=== PATIENT | male | born 1935 | race Caucasian/White ===

== ENCOUNTER 2017-10-11 16:27 | Emergency (ER) | payer MEDICARE, OTHER ==
[2017-10-11 16:56] VITALS: BP 140/76
== END 2017-10-11 16:50 | disposition left against medical advice (07) ==
LOC: ED 16:27
DX: R00.0 Tachycardia, unspecified (principal); Z53.21 Procedure and treatment not carried out due to patient leaving prior to being seen by health care provider
CPT/HCPCS: 99282

== ENCOUNTER 2017-10-16 15:13 | Emergency (ER) | payer MEDICARE ==
[2017-10-16] MEDS ORDERED: NS 0.9% 1000 ML* 1,000 ML IV ONE (15:23)
--- NOTE | 2017-10-16 15:42 | ED ---
Neurological HPI - HPI Summary HPI Summary: An 81 y/o M with dementia HONG presents to ED from [facility] because pt is not behaving at baseline. Per EMS: Cora called ambulance because pt was weak and unable to ambulate. When they arrived on scene, pt was ambulating normally; pt had a negative [place] test; his hips appeared skewed but pt denied hip pain even when ambulating, pt was non agitated, not aggressive. Per : pt walks daily without problem; his doctors are at [facility] including his neurologist. Pt was seen in [facility] on 10/11/17 for similar sx. At bedside, pt denies KAPOOR, CP, SOB, recent illness, weak, lethargy, appetite changes, urinary sx. This is scribe, Jere Rubin, documenting for attending Dr. Tal Ramos MD. - History of Current Complaint Chief Complaint: EDWeakness Stated Complaint: GENERAL ILLNESS Time Seen by Provider: 10/16/17 15:23 Hx Obtained From: Patient, Family/Stucco Worker - , EMS Hx From Patient Unobtainable Due To: Dementia Onset/Duration: Resolved Current Severity: None Pain Intensity: 0 Pain Scale Used: 0-10 Numeric - Allergy/Home Medications Allergies/Adverse Reactions: Allergies Allergy/AdvReac Type Severity Reaction Status Date / Time No Known Allergies Allergy Verified 10/16/17 15:44 PMH/Surg Hx/FS Hx/Imm Hx Previously Healthy: No Endocrine/Hematology History: Reports: Hx Diabetes Cardiovascular History: Denies: Hx Hypertension, Hx Pacemaker/ICD Sensory History: Denies: Hx Hearing Aid Neurological History: Reports: Hx Dementia Psychiatric History: Denies: Hx Panic Disorder - Cancer History Cancer Type, Location and Year: PROSTATE, LIVER LESION 2 YRS AGO Hx Chemotherapy: Yes Hx Radiation Therapy: Yes - Surgical History Surgery Procedure, Year, and Place: LOW BACK SURGERY(DISC) 1959'S; PROSTATECTOMY (CANCER) 20-25 YRS AGO; CATARACTS BILATERAL Infectious Disease History: No Infectious Disease History: Denies: Traveled Outside the [place] in Last 30 Days - Family History Family History: L5 CAVEAT: FHx LIMITED DUE TO PT CONDITION, DEMENTIA - Social History Occupation: Retired Lives: At [facility] Alcohol Use: Occasionally Hx Substance Use: No Substance Use Type: Reports: None Hx Tobacco Use: No Smoking Status (MU): Never Smoked Tobacco Review of Systems - ROS Summary Review of Systems Summary: Pt has no complaints at bedside. Denies KAPOOR, CP, SOB, recent illness, weak, lethargy, appetite changes, urinary sx. Negative: Fever Neurological: Other - difficulty ambulating, per [facility] Positive: Weakness - per [facility] All Other Systems Reviewed And Are Negative: Yes Physical Exam - Summary Physical Exam Summary: Appearance: Well appearing, no pain distress Skin: warm, dry, reflects adequate perfusion Head/face: normal Eyes: EOMI, HERBERT, wears glasses ENT: normal, no adenopathy, mucous membranes are moist Neck: supple, non-tender Respiratory: CTA, breath sounds present Cardiovascular: RRR, pulses symmetrical Abdomen: non-tender, soft Bowel Sounds: present Musculoskeletal: normal, strength/ROM intact Neuro: normal, sensory motor intact, short-term A&Ox2 person and place, intact rouge sifter and miller recall, cranial nerves intact, no focal deficit or weakness, nml gait , and walks unsupported Triage Information Reviewed: Yes Vital Signs On Initial Exam: Initial Vitals Temp Pulse Resp BP Pulse Ox 98 F 65 16 131/70 95 10/16/17 15:28 10/16/17 15:28 10/16/17 15:28 10/16/17 15:28 10/16/17 15:28 Vital Signs Reviewed: Yes - Tyra Coma Scale Best Eye Response: 4 - Spontaneous Best Motor Response: 6 - Obeys Commands Best Verbal Response: 4 - Confused Coma Scale Total: 14 Diagnostics - Vital Signs Vital Signs Temp Pulse Resp BP Pulse Ox 10/16/17 15:28 98 F 65 16 131/70 95 - Laboratory Result Diagrams: 10/16/17 15:39 10/16/17 15:39 Lab Statement: Any lab studies that have been ordered have been reviewed, and results considered in the medical decision making process. - Radiology CXR Xray Interpretation: Positive (See Comments) - IMPRESSION: PATCHY RIGHT BASILAR ATELECTASIS VERSUS EARLY CONSOLIDATION. ED physician has reviewed this report and agrees. Radiology Interpretation Completed By: Radiologist - CT Brain CT Interpretation: Positive (See Comments) - IMPRESSION: Chronic and degenerative changes as described above without CT apparent acute intracranial abnormality. ED physician has reviewed this report and agrees. CT Interpretation Completed By: Radiologist - EKG 1602 Cardiac Rate: NL - 60 bpm EKG Rhythm: Sinus Rhythm EKG Interpretation: nml axis, interval ST Re-Evaluation - Re-Evaluation 1 Re-Evaluation Time: 18:20 Change: Unchanged Comment: Discussing results, plan to DC pt home, and hospitalist consult with . Course/Dx - Course Course Of Treatment: Patient is neurologically at baseline with confusion but otherwise without focal deficit or weakness. He is ambulatory and at baseline per his . He ate a full meal here and stood and urinated on his own. He has walked across the ER. He has had intermittent sweating episodes which may be related to a small area that may be early infiltrate in the right lung. Oral doxycycline was started. This after discussion with hospitalist who agrees she does not meet criteria for admission. His laboratories, head CT etc. all been normal otherwise. I discussed the case with the nurse at his residence who has accepted him back. - Differential Dx Differential Diagnoses Neuro: Positive: Other - DTI, other infection, intracranial bleed, progression of his dementia - Diagnoses Provider Diagnoses: RLL pneumonia, Dementia, Weakness Discharge - Sign-Out/Discharge Documenting (check all that apply): Patient Departure - DC - Discharge Plan Condition: Improved Disposition: [facility]P FACILITY Prescriptions: DOXYcycline CAP(*) [DOXYcycline 100MG CAP(*)] 100 mg PO BID #19 cap Patient Education Materials: Bacterial Pneumonia (ED) Referrals: Jack Acosta MD [Primary Care Provider] - Additional Instructions: Return to [facility]. Encourage hydration. Physical therapy to assist. Walk with walker. Return with fever, difficulty breathing, worsening, new symptoms or other concerns. - Billing Disposition and Condition Condition: IMPROVED Disposition: Nursing Home Facility Consult Consult: 1541: Spoke to Bhavya at [facility] For several days, Mr. Frank has had intermittent episodes of diaphoresis, weakness and difficulty walking around, possibly leaning to the right, and has been incontinent which is not his baseline. 1744: Contact [facility] Spoke to [facility], discussed plans to DC pt back to [facility]. 175: Consult with Dr. Tabares, hospitalist Recommends the pt be D/C
[2017-10-16 16:04] LABS: INR 0.97 (0.77-1.02)
--- NOTE | 2017-10-16 16:14 | RAD ---
HISTORY: Generalized illness, fluctuating level of consciousness COMPARISONS: None VIEWS: 2: Frontal and lateral views of the chest. FINDINGS: CARDIOMEDIASTINAL SILHOUETTE: The cardiomediastinal silhouette is normal. GOPAL: The gopal are normal. PLEURA: The costophrenic angles are sharp. No pleural abnormalities are noted. LUNG PARENCHYMA: There is patchy alveolar opacification of the right lung base near the cardiophrenic angle. ABDOMEN: The upper abdomen is clear. There is no subphrenic gas. BONES AND SOFT TISSUES: There is remote posttraumatic deformity to the right hemithorax. OTHER: None. IMPRESSION: PATCHY RIGHT BASILAR ATELECTASIS VERSUS EARLY CONSOLIDATION.
[2017-10-16 16:53] LABS: Urine Appearance Clear; Urine Blood Negative (Negative); Urine Color Yellow; Urine Ketones Negative (Negative); Urine Protein Negative (Negative); Urine Specific Gravity 1.015 (1.010-1.030); Urine Urobilinogen Negative (Negative)
[2017-10-16 17:28] LABS: ABS Basophils 0.1 10^3/ul (0-0.2); ABS Eosinophils 0.2 10^3/ul (0-0.6); ABS Lymphocytes 1.8 10^3/ul (1.0-4.8); ABS Monocytes 0.7 10^3/ul (0-0.8); ABS Neutrophils 4.6 10^3/ul (1.5-7.7); ABS Nucleated RBC 0 10^3/ul; Eosinophil % 2.3 % (0-6); Hematocrit 43 % (42-52); Hemoglobin 14.1 g/dl (14.0-18.0); Lymphocyte % 24.7 % (25-47); Mean Corpuscular HGB Conc 33 g/dl (31-36); Mean Corpuscular Hemoglobin 31 pg (27-31); Mean Corpuscular Volume 94 fL (80-94); Mean Platelet Volume 9.1 um3 (7.4-10.4); Nucleated Red Blood Cells % 0; Platelet Count 162 10^3/ul (150-450); Red Blood Count 4.58 10^6/ul (4.00-5.40); Red Cell Distribution Width 15 % (10.5-15); White Blood Count 7.4 10^3/ul (3.5-10.8)
[2017-10-16] MEDS ORDERED: Levofloxacin TAB* 250 MG PO ONE (17:45)
--- NOTE | 2017-10-16 17:52 | RAD ---
INDICATION: "Not behaving appropriately" COMPARISON: None. TECHNIQUE: Contiguous axial sections of the brain were obtained from the skull base to the vertex without contrast. FINDINGS: The ventricles, cisterns and sulci mild, symmetrical involutional changes.. There is mild subcortical and periventricular hypoattenuation of the white matter tracts most consistent with chronic microvascular disease.. The lazaro-white matter differentiation is adequately maintained and there is no sulcal effacement. No significant focal abnormality or mass effect is present. There is no evidence for intracranial hemorrhage. There is atherosclerotic calcification of the vertebral arteries and bilateral petrous carotid arteries. No significant focal osseous abnormality is present. The visualized portion of the paranasal sinuses appear clear. The mastoid air cells are well aerated bilaterally. IMPRESSION: Chronic and degenerative changes as described above without CT apparent acute intracranial abnormality.
[2017-10-16] MEDS ORDERED: DOXYcycline CAP(*) 100 MG PO ONE (17:55)
[2017-10-16 19:18] VITALS: BP 144/74
== END 2017-10-16 19:17 ==
LOC: ED 15:13
DX: J18.9 Pneumonia, unspecified organism (principal); F03.90 Unspecified dementia, unspecified severity, without behavioral disturbance, psychotic disturbance, mood disturbance, and anxiety; R53.1 Weakness; Z85.46 Personal history of malignant neoplasm of prostate
CPT/HCPCS: 36415; 70450; 71046; 80053; 81003; 83605; 84443; 84484; 85025; 85610; 85730; 93005; 96360; 99282; A9270-GY

== ENCOUNTER 2017-10-18 14:54 | Inpatient (IN) | payer MEDICARE ==
[2017-10-18] MEDS ORDERED: Acetaminophen TAB* 325 MG PO PRN (15:57)
[2017-10-18] MEDS ORDERED: Ondansetron INJ* 2 MG/ML VIAL IV PRN (15:57)
[2017-10-18] MEDS ORDERED: Dextrose 50% Syringe 50 ML* 25 GM/50 ML SYRINGE IV PUSH PRN (15:57)
--- NOTE | 2017-10-18 16:35 | RAD ---
Indication: Hypertension. Single frontal view of the chest performed at 1615 hours was reviewed. Comparison is made with previous exam dated October 16, 2017. No mediastinal shift is noted. Heart is of normal size and configuration. Lung koehler are clear. Deformity of the right fourth fifth sixth and seventh rib is noted from old fracture. No pneumothorax or alveolar consolidation is noted. IMPRESSION: NO ACTIVE CARDIOPULMONARY DISEASE IS NOTED.
[2017-10-18] MEDS ORDERED: Insulin LISPRO* 1 UNITS UNIT SUBCUT SCH (18:00)
[2017-10-18 18:25] LABS: ABS Basophils 0 10^3/ul (0-0.2); ABS Eosinophils 0.2 10^3/ul (0-0.6); ABS Lymphocytes 1.8 10^3/ul (1.0-4.8); ABS Monocytes 0.8 10^3/ul (0-0.8); ABS Neutrophils 4.6 10^3/ul (1.5-7.7); ABS Nucleated RBC 0 10^3/ul; Eosinophil % 2.2 % (0-6); Hematocrit 44 % (42-52); Hemoglobin 14.5 g/dl (14.0-18.0); Lymphocyte % 24.8 % (25-47); Mean Corpuscular HGB Conc 33 g/dl (31-36); Mean Corpuscular Hemoglobin 31 pg (27-31); Mean Corpuscular Volume 93 fL (80-94); Mean Platelet Volume 8.6 um3 (7.4-10.4); Nucleated Red Blood Cells % 0; Platelet Count 167 10^3/ul (150-450); Red Blood Count 4.72 10^6/ul (4.00-5.40); Red Cell Distribution Width 15 % (10.5-15); White Blood Count 7.3 10^3/ul (3.5-10.8)
[2017-10-18] MEDS: Insulin LISPRO* 1 UNITS UNIT SUBCUT SCH ×2 (18:38→22:18)
[2017-10-18 18:41] LABS: EGFR Non-African American 66.6 (>60)
--- NOTE | 2017-10-18 19:19 | HP ---
CC: Dr. Kevin Boggs; Dr. Hamm * HISTORY AND PHYSICAL: DATE OF ADMISSION: 10/18/17 PRIMARY CARE PROVIDER: Dr. Kevin Boggs. ATTENDING PHYSICIAN WHILE IN THE HOSPITAL: Dr. Liyah Kendrick * (report dictated by Sha Angeles NP). CONSULTING NEUROLOGIST: Dr. Hamm. CHIEF COMPLAINT: 1. Falls. 2. Left facial droop. HISTORY OF PRESENT ILLNESS: Mr. Frank is an 82-year-old male patient. He carries a history of autoimmune hepatitis, diabetes, history of prostate cancer , dementia, and history of a DVT in the past for which he is on chronic anticoagulation. There is also question if he has a history of atrial fibrillation. It is denied by the , but looking back in previous visits, it looks like he may have been seen for that in the past. He is coming into the hospital today. He was seen in the ED on 10/16/17 for complaints of falls and just not acting right. According to the ED notes, he returned to his baseline and he was discharged. He was seen in followup today at Dr. Boggs's office. It was noted that when he was evaluated, he appeared to be having a facial droop and trouble with ambulation and we were asked to evaluate for direct admission. The patient was sent over from Dr. Boggs's office and we were asked to evaluate. His says that she thinks he may have had a facial droop yesterday afternoon. She is not sure at what time this all happened, but he has been having intermittent episodes of falling, which was very odd for the patient because he typically can walk 2 miles a day. She does not really know exactly when the symptoms started, unfortunately. She also notes that his speech seems slurred, but she has not noticed weakness to the left arm or the right arm, but she definitely notes that he has had facial drooping to the left face. There have been no reports of trouble with vision. The patient again has mild dementia and he is really unable to help figure out when the timeframe of these symptoms was. He is denying any chest pain now. There have been no recent reports of fevers or chills. There have been no reports of vomiting or abdominal pain. No reports of change in medications recently. Because of the change in his face and his speech and his gait, we evaluated him and this is his biggest complaint and it appears that he may have had a CVA. PAST MEDICAL HISTORY: Significant for: 1. Autoimmune hepatitis. 2. Diabetes. 3. Prostate cancer. 4. Dementia. 5. History of DVT. 6. Hypothyroidism. PAST SURGICAL HISTORY: He has had: 1. Back surgery. 2. Cataracts. 3. Prostatectomy. MEDICATIONS: Home medications according to Dr. Boggs's list, include: 1. Celexa 10 mg daily. 2. Synthroid 100 mcg daily. 3. Aricept 5 mg at bedtime. 4. Tylenol 325 mg every 6 hours as needed. 5. Glimepiride 2 tablets in the morning. 6. Eliquis 2.5 mg p.o. twice a day. 7. CellCept 500 mg p.o. b.i.d. 8. Doxycycline 100 mg p.o. twice a day. 9. MiraLAX 3350 mg p.o. daily. 10. Oyster Shell Calcium 1 tablet p.o. daily. 11. Vitamin D3 2000 units p.o. daily. ALLERGIES TO MEDICATIONS: Include no known drug allergies. FAMILY HISTORY: His mother had a history of dementia. Father had a heart attack. 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 He does not smoke cigarettes. He does not drink alcohol. Surrogate decision maker is his . REVIEW OF SYSTEMS: There is no documented fever. He denies having any significant weight change. There was no double vision. He denies having any ear discharge. There was no rhinorrhea. There is no sore throat. No thyroid enlargement. Denies having any chest pain. There have been no reports of cough. There has been no vomiting or diarrhea. No abdominal pain. No dysuria , no frequency. No seizure, no loss of consciousness. No pruritus and no skin ulcerations. Review of 14 systems was completed, all others negative. PHYSICAL EXAMINATION GENERAL: At this time, Mr. Frank is an 82-year-old male patient. He appears to be well nourished and well developed. He does not appear to be in any acute distress. VITAL SIGNS: Blood pressure 123/54, pulse 71, respirations 14, O2 sat 94%, temperature 98.2. HEENT: Head: Atraumatic. Eyes: EOMs intact. Sclerae anicteric and not pale. Throat: Oral mucosa appears to be moist. No oropharyngeal erythema. NECK: Supple. LUNGS: Clear to auscultation bilaterally. No wheezes, rales, or rhonchi. HEART: Sounds S1, S2. Regular rate and rhythm. No murmurs, rubs, or gallops. ABDOMEN: Soft, flat, nontender. Bowel sounds were present. EXTREMITIES: Pulses were 2+ throughout. He has weakness noted to the left upper extremity. He had 5/5 strength in the right upper and right lower extremity, 5/5 strength in the left lower extremity. NEUROLOGICAL: He is awake. He knows he is in the hospital. He knows his name. He knows it is birthday today. He does have a facial droop noted to his left face. Speech is slurred, but it is appropriate. His technical support specialist were equal. He does have a left pronator drift and on gait, he does seem to have an unsteady, uncoordinated gait, where he is walking to the left. Lghimj-rl-yodl intact bilaterally. Heel-to- mendez was intact bilaterally and he did have again good strength in the lower extremities. No other gross focal deficits. SKIN: Intact. DIAGNOSTIC STUDIES/LAB DATA: I have labs from 10/16/17, WBC 7.4, RBC of 4.58, hemoglobin of 14.1, hematocrit of 43, His INR was 0.97, PTT of 30. Sodium was 136, potassium of 4.7, chloride 101, bicarb 29, BUN 24, creatinine 1.07. His urine obtained on 10/16/17 was negative. He did have a chest x-ray done in the ER on 10/16/17, which showed patchy bibasilar atelectasis versus early consolidation in the right lower lobe. He had a brain CT obtained as well, which showed chronic and degenerative changes as described above without acute intracranial abnormality. Chest x- ray today we just got one, I do not see any acute focal infiltrates or effusions. The costophrenic angles were sharp. He had an EKG when he was here in the ED, a few days ago, which showed a normal sinus rhythm, rate of 60, no ST elevations or T-wave inversions were noted. Old medical records were reviewed. ASSESSMENT AND PLAN: Mr. Frank is an 82-year-old male patient coming into the hospital today after being evaluated by Dr. Boggs for concerns for facial droop, abnormal gait, in addition to this weakness of his left upper extremity and a left facial droop. He will be admitted under inpatient status for: 1. Cerebrovascular accident. I suspect the patient had a cerebrovascular accident. Unfortunately, I do not know the time of onset and I do not think he is a candidate for large vessel occlusion thrombectomy or tPA. He is on Eliquis and we do not have correct time of onset. The says that she may have noticed the facial droop yesterday afternoon. It has been well over [address] Hamm evaluated the patient and the plan is to going to get an MRI of the brain with an MRA of the head and neck, echo with bubble study. I will place the patient on neuro checks every 4 hours. I am holding on restarting his Eliquis. I want to make sure the MRI is negative for any petechial hemorrhage. He got his Eliquis today, so Dr. Hamm was okay with holding the aspirin until we get the MRI. We will check his lipid panel and his A1c in the morning. He can be up out of bed. I did order a bedside swallow eval. If he passes that, we will proceed with consistent carb diet. I also ordered PT and OT for the patient as he may not be a candidate for [place] because of the stroke and we will continue to follow him closely. I am placing him on telemetry to monitor for any atrial fibrillation. 2. Autoimmune hepatitis. Continue with CellCept. 3. Diabetes. He will be placed on lispro sliding scale. 4. Prostate cancer. Follow up with PCP. 5. Dementia. Continue with Aricept and supportive care. 6. History of deep venous thrombosis. He is due for his Eliquis tonight. We will have the MRI back by then and hopefully we will be able to restart it safely depending on what the MRI shows. For the time being, he will be placed on SCDs. I am going to hold his Eliquis. 7. Code status. Full code. 8. Fluids, electrolytes, and nutrition. Again, n.p.o. pending bedside swallow eval. TIME SPENT: Time spent on admission was 60 minutes, greater than half the time was spent [id number] with the patient obtaining my history and physical, other half of the time was spent going over the plan of care with the patient and implementing the plan of care. I did discuss the plan of care with my attending, Dr. Kendrick; she is in agreement. SHA ANGELES NP [id number]/CPS #: [id number] HERNANDEZ
--- NOTE | 2017-10-18 19:38 | RAD ---
Indication: Stroke. Image sequences: Sagittal and axial T1, axial T2, FLAIR, diffusion and susceptibility weighted images of the brain were obtained. Ventricular structures are midline. No midline shift is noted. The extra-axial spaces are unremarkable. There is central and cortical atrophy noted. There is a focal area of restriction of diffusion involving the right florinda consistent with a right pontine infarct. No other areas of restricted diffusion is noted. Minimal periventricular lucency consistent with chronic ischemic White matter change is present. The orbits and paranasal sinuses are otherwise unremarkable. IMPRESSION: Restricted diffusion in the right florinda consistent with a right pontine infarct. Central and cortical atrophy is present.
--- NOTE | 2017-10-18 19:42 | RAD ---
Indication: Stroke. MRA of the brain was performed utilizing 3-D [id number] technique. Multiple maximum intensity projection images were obtained. The intracranial portion of the internal carotid arteries demonstrate no evidence of stenosis or aneurysmal dilatation. The right A1 segment of the right anterior cerebral artery is hypoplastic. There is a patent anterior communicating artery. There is no evidence of branch occlusion noted. No aneurysmal dilatation is noted. The vertebral arteries are widely patent. The basilar artery is unremarkable. There is atherosclerosis with areas of stenosis involving the right posterior cerebral artery. 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 The right posterior cerebral artery demonstrates focal areas of stenosis and likely poststenotic dilatation. The left posterior cerebral artery is unremarkable. No branch occlusion is identified.
[2017-10-18] MEDS ORDERED: Gadobenate* (CONTRAST) 529 MG/ML 10 ML SDV IV ONE (19:56)
[2017-10-18] MEDS ORDERED: Gadobenate* (CONTRAST) 529 MG/ML 10 ML SDV IV SCH (21:00)
--- NOTE | 2017-10-18 21:39 | CONS ---
CC: Dr. Kevin Boggs * NEUROLOGY CONSULTATION: DATE OF CONSULT: 10/18/17 REFERRING PHYSICIAN: Sha Angeles NP. LOCATION: He is an inpatient currently in room 418. CHIEF COMPLAINT: Falls, left-sided weakness. HISTORY OF PRESENT ILLNESS: Aki Frank is an 82-year-old probably right handed man who was admitted directly from Dr. Boggs's office when he was evaluated and found to have left-sided weakness. He was just in the emergency room on 10/16/17 with repetitive falls. He had a CT scan of the brain, which was interpreted as showing atrophy only. Apparently, at [place] where he lives in [place], he was not ambulating like he normally can, which is apparently quite well. When he was evaluated in the emergency room, he was without focal deficits or hemiparesis. There were no abnormalities of his blood test or vital signs and so he was discharged back to his correction facility. In speaking with Sha Angeles NP, when he was seen in Dr. Boggs's office this afternoon, he was noted to have a left facial paralysis and so he was directly admitted. The patient has Alzheimer's disease and is cooperative, but not able to provide meaningful history. He is not aware of any particular weakness or difficulty walking and does not recall any falls. The records that we have here are fairly minimal, but there is no prior admissions for cerebrovascular events. PAST MEDICAL HISTORY: Notable for diabetes which he is on insulin for, deep vein thrombosis or possibly atrial fibrillation for which he is on apixaban, hypothyroidism, Alzheimer's disease. MEDICATIONS AT HOME: Consist of: 1. Donepezil 5 mg p.o. q. day. 2. Insulin. 3. Synthroid 100 mcg p.o. q. day. 4. CellCept 500 mg p.o. b.i.d. 5. Zofran 4 mg p.r.n. REVIEW OF SYSTEMS: From the patient is unproductive. He denies headache, weakness, numbness, or change in vision. He is not sure why he is here other than to say that his felt that he should be evaluated by doctors and go to the hospital. PHYSICAL EXAM: He is afebrile with a temperature of 98.2, most recent blood pressure 123/54, heart rate in the 70s and seems regular to auscultation. I do not hear any murmurs. Neck is supple. There are no cervical bruits. Oral mucosa is moist and atraumatic. Lungs are clear anterolaterally. Neurological exam: Pupils react equally from about 3.5 to 2.5 mm. Eye movements are full. Visual koehler are full to confrontation. There is a central pattern left facial weakness. Speech reveals minimal dysarthria. Tongue protrudes in the midline and palate rises symmetrically. Facial sensation to light touch and pin is reported as symmetric. He is a little bit hard of hearing. Motor exam reveals a left pronator drift. He has diffuse paratonia. He seems to have good strength in the right arm and both lower extremities. Sensory exam is normal for symmetrical pin discrimination in the proximal leg and in the hands. Vibration is lost in the feet. Reflexes are hypoactive, trace at the knees, absent at the ankles. He has a left Babinski sign while the right plantar is flexor. Finger taps are slow and clumsy in the left hand, pretty normal on the right. There is no rest tremor. I did not attempt to ambulate him. He is alert and oriented to person and knows he is in [place]. 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 He is not able to provide any meaningful recent history. Language is fluent and he loses his train of thought frequently. DIAGNOSTIC STUDIES/LAB DATA: Includes a CT of the brain from 10/16/17, which I reviewed. It is interpreted as showing atrophy and I agree. I do not see any signs of hemorrhage, tumors, or old or acute infarctions. Other laboratory data is notable for a normal CBC on 10/16/17, a chemistry profile notable for a glucose of 141 and otherwise a normal chemistry profile. His last cholesterol from last January was 198 and LDL 138. IMPRESSION AND PLAN: Impression of that of a probable right hemispheric stroke. It seems to have had a stuttering onset. I spoke with Sha Angeles and recommended that we get an MRI of the brain without contrast and get an MR angiogram of the neck and brain. He is too far out for any type of endovascular therapy. He is also anticoagulated. He is being moved over to telemetry. He may need an echocardiogram. His apixaban has been held until his MRI scan is done to make sure there is no evidence of hemorrhage. If there has not been, I would recommend it be re-instituted. I am not sure why he is on CellCept and that will need to be determined. I will follow him along with you. [id number]/[facility] #: [id number] [facility]
[2017-10-18] MEDS: Aspirin EC TAB* 81 MG TAB.EC PO SCH (22:19)
[2017-10-18] MEDS: Apixaban* 5 MG TAB PO SCH (22:19)
[2017-10-18] MEDS: Mycophenolate Mofetil TAB(*) 500 MG PO SCH (22:22)
[2017-10-18 23:04] LABS: Urine Appearance Clear; Urine Blood Negative (Negative); Urine Color Straw; Urine Ketones Negative (Negative); Urine Protein Negative (Negative); Urine Specific Gravity 1.015 (1.010-1.030); Urine Urobilinogen Negative (Negative)
[2017-10-19 05:27] LABS: ABS Basophils 0.1 10^3/ul (0-0.2); ABS Eosinophils 0.2 10^3/ul (0-0.6); ABS Lymphocytes 1.4 10^3/ul (1.0-4.8); ABS Monocytes 0.8 10^3/ul (0-0.8); ABS Neutrophils 5.3 10^3/ul (1.5-7.7); ABS Nucleated RBC 0 10^3/ul; Hematocrit 46 % (42-52); Hemoglobin 15.4 g/dl (14.0-18.0); Lymphocyte % 18.6 % (25-47); Mean Corpuscular HGB Conc 34 g/dl (31-36); Mean Corpuscular Hemoglobin 31 pg (27-31); Mean Corpuscular Volume 93 fL (80-94); Mean Platelet Volume 8.7 um3 (7.4-10.4); Nucleated Red Blood Cells % 0; Platelet Count 158 10^3/ul (150-450); Red Blood Count 4.91 10^6/ul (4.00-5.40); Red Cell Distribution Width 15 % (10.5-15); White Blood Count 7.8 10^3/ul (3.5-10.8)
[2017-10-19 05:32] LABS: INR 1.02 (0.77-1.02)
[2017-10-19 05:43] LABS: EGFR Non-African American 67.3 (>60)
[2017-10-19] MEDS: Levothyroxine TAB* 100 MCG TAB PO SCH (06:05)
[2017-10-19] MEDS: Insulin LISPRO* 1 UNITS UNIT SUBCUT SCH ×4 (07:34→20:46)
--- NOTE | 2017-10-19 07:55 | RAD ---
HISTORY: CVA COMPARISONS: MRI dated October 18, 2012 TECHNIQUE: The following sequences were obtained of the neck after localizing images: Stacked axial 2-D [id number] MR angiography of the neck; 3-D axial [id number] MR angiography of the carotid bifurcations. Multiple 3-D maximum intensity projection reconstructions are submitted for review. FINDINGS: AORTA: The aortic arch is not well visualized secondary to technique and motion artifact. There is no obvious ostial or proximal stenosis of the cephalic great vessels. RIGHT VERTEBRAL ARTERY: There is moderate ostial stenosis of the right vertebral artery. The remainder is patent. LEFT VERTEBRAL ARTERY: There is mild ostial stenosis of the left vertebral artery. The remainder of the left vertebral artery is patent. DOMINANCE: The vertebral arteries are codominant. RIGHT COMMON CAROTID ARTERY: The right common carotid artery is patent. RIGHT INTERNAL CAROTID ARTERY: There is atheromatous disease of the right carotid bifurcation. There is no right internal carotid artery stenosis by NASCET criteria. LEFT COMMON CAROTID ARTERY: The left common carotid artery is patent. LEFT INTERNAL CAROTID ARTERY: There is atheromatous disease of the left carotid bifurcation. There is no left internal carotid artery stenosis by NASCET criteria. ADDITIONAL FINDINGS: Evaluation the intragastric location is limited by motion artifact, though again noted is multifocal narrowing of the posterior cerebral artery as noted on the MRA of the head. IMPRESSION: 1. ATHEROMATOUS DISEASE. 2. RIGHT GREATER THAN LEFT OSTIAL STENOSIS OF THE VERTEBRAL ARTERIES BILATERALLY. 3. NO INTERNAL CAROTID ARTERY STENOSIS BY NASCET CRITERIA. CPT II Codes: 3100F R2
[2017-10-19] MEDS: Aspirin EC TAB* 81 MG TAB.EC PO SCH (08:44)
[2017-10-19] MEDS: Mycophenolate Mofetil TAB(*) 500 MG PO SCH ×2 (08:45→20:05)
[2017-10-19] MEDS: Apixaban* 5 MG TAB PO SCH ×2 (08:45→20:46)
[2017-10-19] MEDS: Donepezil TAB* 5 MG PO SCH (08:45)
[2017-10-19] MEDS: Citalopram TAB* 10 MG PO SCH (08:45)
--- NOTE | 2017-10-19 09:15 | PN ---
Subjective Date of Service: 10/19/17 Interval History: Mr. Frank denies complaint today. He is confused about recent events and thinks he is at [place] [facility]. He specifically denies chest pain, SOB, nausea, or abdominal pain. Objective Active Medications: Acetaminophen (Tylenol Tab*) 650 mg PO Q4H PRN Apixaban (Eliquis*) 2.5 mg PO BID [facility] Aspirin (Aspirin Ec Tab*) 81 mg PO DAILY [facility] Citalopram Hydrobromide (Celexa Tab*) 10 mg PO DAILY [facility] Dextrose (D50w Syringe 50 Ml*) 12.5 gm IV PUSH .FOR FS < 60 - SS PRN Donepezil HCl (Aricept Tab*) 5 mg PO DAILY [facility] Gadobenate Dimeglumine (Multihance* (Contrast)) 15 ml IV ONCE [facility] Insulin Human Lispro (Humalog*) 0 units SUBCUT ACHS MOISES; Protocol Levothyroxine Sodium (Synthroid Tab*) 100 mcg PO DAILY@0600 [facility] Mycophenolate Mofetil (Cellcept Tab(*)) 500 mg PO BID [facility] Ondansetron HCl (Zofran Inj*) 4 mg IV Q6H PRN Vital Signs: Temp Pulse Resp BP Pulse Ox 98.8 F 61 16 104/49 95 10/19/17 03:25 10/19/17 03:25 10/19/17 07:51 10/19/17 03:25 10/19/17 03:25 Oxygen Devices in Use Now: None Appearance: Male sitting up in bed with family at bedside Eyes: No Scleral Icterus Ears/Nose/Mouth/Throat: Mucous Membranes Moist Neck: Trachea Midline Respiratory: Symmetrical Chest Expansion and Respiratory Effort, Clear to Auscultation Cardiovascular: NL Sounds; No Murmurs; No JVD, No Edema Abdominal: NL Sounds; No Tenderness; No Distention Extremities: No Edema Skin: No Rash or Ulcers Neurological: - - Alert and oriented to self, follows all commands, minimal left sided U and LE weakness noted, some mild ataxia to L UE, L facial droop persists, tongue deviates to left Nutrition: Taking PO's, - - Nursing staff concerned for aspiration with thin liquids and impulsivity Result Diagrams: 10/19/17 05:17 10/19/17 05:17 Assess/Plan/Problems-Billing Assessment: Mr. Frank is an 82 yo male with a PMH of diabetes and dementia who was admitted on 10/18/17 with weakness, falls, and left facial droop with right pontine ischemic CVA. - Patient Problems (1) CVA (cerebral vascular accident) Comment: - R pontine CVA noted on MRI brain. - Appreciate neuro consult. Patient already on eliquis for hx of DVT. Continue aspirin. Echo pending. LDL 161 but patient does have hx of autoimmune hepatitis, so statin contraindicated. HgbA1c 7.2, will aim for tighter blood sugar control. - PT/OT and ST ordered. (2) Diabetes Comment: - BG 190-220s - Continue lispro SSI coverage. Hold glimperide. (3) Dementia Comment: - Continue aricept and supportive care. (4) Hypothyroid Comment: - Continue levothyroxine. (5) DVT prophylaxis Comment: - Patient with hx of DVT. - Continue eliquis. (6) Full code status Comment: Status and Disposition: Inpatient. Anticipate need for PAOLA, from [facility].
--- NOTE | 2017-10-19 11:19 | PN ---
Progress Note - Progress Note Date of Service: 10/19/17 SOAP: Neurology Progress note- Date of service: 10/19/17 Subjective: I was and examined the patient around 10:00 today. Patient had no acute events overnight. Per his , his ambulation is fluctuating, as is his slurred speech and dysarthria. He has completed his MRI. Objective: Vital Signs Temp Pulse Resp BP Pulse Ox 98.5 F 60 18 132/70 97 10/19/17 08:16 10/19/17 08:16 10/19/17 08:16 10/19/17 08:16 10/19/17 08:16 Laboratory Results - last 24 hr 10/18/17 10/18/17 10/18/17 17:58 18:13 18:13 WBC 7.3 RBC 4.72 Hgb 14.5 Hct 44 MCV 93 MCH 31 MCHC 33 RDW 15 Plt Count 167 MPV 8.6 Neut % (Auto) 62.4 Lymph % (Auto) 24.8 L [place] % (Auto) 10.4 H Eos % (Auto) 2.2 Baso % (Auto) 0.2 Absolute Neuts (auto) 4.6 Absolute Lymphs (auto) 1.8 Absolute Monos (auto) 0.8 Absolute Eos (auto) 0.2 Absolute Basos (auto) 0 Absolute Nucleated RBC 0 Nucleated RBC % 0 INR (Anticoag Therapy) Sodium 136 Potassium 4.7 Chloride 102 Carbon Dioxide 27 Anion Gap 7 BUN 25 H Creatinine 1.06 Est GFR ( Amer) 80.5 Est GFR (Non-Af Amer) 66.6 BUN/Creatinine Ratio 23.6 H Glucose 167 H POC Glucose (mg/dL) 180 H Hemoglobin A1c Calcium 9.2 Total Bilirubin 0.40 AST 28 ALT 28 Alkaline Phosphatase 44 Total Protein 7.3 Albumin 3.9 Globulin 3.4 Albumin/Globulin Ratio 1.1 Triglycerides Cholesterol LDL Cholesterol HDL Cholesterol Urine Color Urine Appearance Urine pH Ur Specific [place] Urine Protein Urine Ketones Urine Blood Urine Nitrate Urine Bilirubin Urine Urobilinogen Ur Leukocyte Esterase Urine Glucose 10/18/17 10/18/17 10/19/17 21:52 22:16 05:17 WBC 7.8 RBC 4.91 Hgb 15.4 Hct 46 MCV 93 MCH 31 MCHC 34 RDW 15 Plt Count 158 MPV 8.7 Neut % (Auto) 67.6 Lymph % (Auto) 18.6 L [place] % (Auto) 10.5 H Eos % (Auto) 2.0 Baso % (Auto) 1.3 Absolute Neuts (auto) 5.3 Absolute Lymphs (auto) 1.4 Absolute Monos (auto) 0.8 Absolute Eos (auto) 0.2 Absolute Basos (auto) 0.1 Absolute Nucleated RBC 0 Nucleated RBC % 0 INR (Anticoag Therapy) Sodium Potassium Chloride Carbon Dioxide Anion Gap BUN Creatinine Est GFR ( Amer) Est GFR (Non-Af Amer) BUN/Creatinine Ratio Glucose POC Glucose (mg/dL) 225 H Hemoglobin A1c Calcium Total Bilirubin AST ALT Alkaline Phosphatase Total Protein Albumin Globulin Albumin/Globulin Ratio Triglycerides Cholesterol LDL Cholesterol HDL Cholesterol Urine Color Straw Urine Appearance Clear Urine pH 5.0 Ur Specific [place] 1.015 Urine Protein Negative Urine Ketones Negative Urine Blood Negative Urine Nitrate Negative Urine Bilirubin Negative Urine Urobilinogen Negative Ur Leukocyte Esterase Negative Urine Glucose 1+(50 mg/dl) A 10/19/17 10/19/17 10/19/17 05:17 05:17 05:17 WBC RBC Hgb Hct MCV MCH MCHC RDW Plt Count MPV Neut % (Auto) Lymph % (Auto) [place] % (Auto) Eos % (Auto) Baso % (Auto) Absolute Neuts (auto) Absolute Lymphs (auto) Absolute Monos (auto) Absolute Eos (auto) Absolute Basos (auto) Absolute Nucleated RBC Nucleated RBC % INR (Anticoag Therapy) 1.02 Sodium 135 Potassium 4.2 Chloride 102 Carbon Dioxide 27 Anion Gap 6 BUN 21 Creatinine 1.05 Est GFR ( Amer) 81.4 Est GFR (Non-Af Amer) 67.3 BUN/Creatinine Ratio 20.0 Glucose 103 H POC Glucose (mg/dL) Hemoglobin A1c 7.2 H Calcium 9.0 Total Bilirubin AST ALT Alkaline Phosphatase Total Protein Albumin Globulin Albumin/Globulin Ratio Triglycerides 75 Cholesterol 225 LDL Cholesterol 161 HDL Cholesterol 48.7 Urine Color Urine Appearance Urine pH Ur Specific [place] Urine Protein Urine Ketones Urine Blood Urine Nitrate Urine Bilirubin Urine Urobilinogen Ur Leukocyte Esterase Urine Glucose 10/19/17 07:25 WBC RBC Hgb Hct MCV MCH MCHC RDW Plt Count MPV Neut % (Auto) Lymph % (Auto) [place] % (Auto) Eos % (Auto) Baso % (Auto) Absolute Neuts (auto) Absolute Lymphs (auto) Absolute Monos (auto) Absolute Eos (auto) Absolute Basos (auto) Absolute Nucleated RBC Nucleated RBC % INR (Anticoag Therapy) Sodium Potassium Chloride Carbon Dioxide Anion Gap BUN Creatinine Est GFR ( Amer) Est GFR (Non-Af Amer) BUN/Creatinine Ratio Glucose POC Glucose (mg/dL) 119 H Hemoglobin A1c Calcium Total Bilirubin AST ALT Alkaline Phosphatase Total Protein Albumin Globulin Albumin/Globulin Ratio Triglycerides Cholesterol LDL Cholesterol HDL Cholesterol Urine Color Urine Appearance Urine pH Ur Specific [place] Urine Protein Urine Ketones Urine Blood Urine Nitrate Urine Bilirubin Urine Urobilinogen Ur Leukocyte Esterase Urine Glucose Current Medications Acetaminophen (Tylenol Tab*) 650 mg PO Q4H PRN PRN Reason: FEVER/PAIN Apixaban (Eliquis*) 2.5 mg PO BID [facility] Last Admin: 10/19/17 08:45 Dose: 2.5 mg Aspirin (Aspirin Ec Tab*) 81 mg PO DAILY [facility] Last Admin: 10/19/17 08:44 Dose: 81 mg Citalopram Hydrobromide (Celexa Tab*) 10 mg PO DAILY [facility] Last Admin: 10/19/17 08:45 Dose: 10 mg Dextrose (D50w Syringe 50 Ml*) 12.5 gm IV PUSH .FOR FS < 60 - SS PRN PRN Reason: FS < 60 Donepezil HCl (Aricept Tab*) 5 mg PO DAILY [facility] Last Admin: 10/19/17 08:45 Dose: 5 mg Gadobenate Dimeglumine (Multihance* (Contrast)) 15 ml IV ONCE [facility] Stop: 10/20/17 19:55 Insulin Human Lispro (Humalog*) 0 units SUBCUT [facility]; Protocol Last Admin: 10/19/17 07:34 Dose: Not Given Levothyroxine Sodium (Synthroid Tab*) 100 mcg PO DAILY@0600 [facility] Last Admin: 10/19/17 06:05 Dose: 100 mcg Mycophenolate Mofetil (Cellcept Tab(*)) 500 mg PO BID [facility] Last Admin: 10/19/17 08:45 Dose: 500 mg Ondansetron HCl (Zofran Inj*) 4 mg IV Q6H PRN PRN Reason: NAUSEA Exam: Patient is awake, not oriented to time or place. Speech has very mild dysarthria but intelligible. Has difficulty with naming. Pupils symmetric and reactive to light. Visual koehler are intact by confrontation. Slight facial droop on the left side, sparing the forehead. Tongue in midline and palate elevates upward. V1-3 intact to light and pinprick bilaterally. On motor, he has pronator drift on the left side, and also left leg has oscillation when lifted up form the bed for 5 seconds. Otherwise, strength seems 5/5 throughout other than the left proximal which is 4/5. There is some ataxia in the left hand in finger to nose, but no clear dysmetria. Sensation is intact in the upper and lower extremities bilaterally. Babinski is equivocal on both sides. Not able to follow commands for heel to mendez. Gait is narrow based and very cautious and slow, with the help of a walker. MRI brain: Restricted diffusion in the right [place] consistent with a right pontine infarct. Central and cortical atrophy is present. MRA: There is atherosclerosis with areas of stenosis involving the right posterior cerebral artery. 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 The vertebral arteries are widely patent. The basilar artery is unremarkable. There is atherosclerosis with areas of stenosis involving the right posterior cerebral artery. 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 The right posterior cerebral artery demonstrates focal areas of stenosis and likely poststenotic dilatation. The left posterior cerebral artery is unremarkable. Assessment and Plan: 82-year-old male with history of Alzheimer disease, and autoimmune hepatitis, now presenting with a stroke in the right [place]inda area. The patient has a history of questionable A-fib and he is already on anticoagulation for history of DVT. The stroke may be subacute at this point given the history of left facial droop and worsening of his walking that started a couple of days ago; and also the evolving stroke findings in MRI. 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 I talked in detail with the patient's and daughter at the bedside about the pros and cons of adding antiplatelets to his anticoagulation. I mentioned that there is no hard evidence in literature that combined anticoagulation and antiplatelet is more beneficial compared to anticoagulation only; also there is increased risk of hemorrhage with combination of those therapies. Eventually, decided that continuing current treatment with Eliquis is the best approach. I also discussed the risk of hemorrhagic conversation especially in the first 48- 72 hours (but again this probably is 1-2 days old already). Statins are contraindicated because of hepatitis. 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 He may need a short term rehab. Whether the dose of his Eliquis needs to be adjusted (increased) needs to be also looked at. Time spent at bedside at least 45 minutes.
--- NOTE | 2017-10-19 14:52 | ECHO ---
Patient: AMAN AVILEZ [facility] Rec#: [id number] : 1935 Date: 10/19/2017 Age: 82y Height: 175.26 cm / 69.0 in Weight: 73.94 kg / 163.0 lbs Sex: M BSA: 1.89 Room#: 436 Admit Date#: 10/18/2017 Type: Inpatient Referring: Sha Angeles NP Reading: Liam Santiago MD Tube Buffer: Edith Roberto RDCS CC: Kevin Boggs MD Transthoracic Echocardiogram Indication: CVA BP: 104/49 HR: 60 Rhythm: NSR Findings History: Dementia,DM,? DVT in the past, s/p chemo and radiation. Technical Comments: The study quality is good. Completed at 1235. Left Ventricle: There is normal left ventricular systolic function. The estimated ejection fraction is 55-60%. Abnormal left ventricular diastolic function is observed. Left Atrium: The left atrial chamber size is normal. Right Ventricle: The right ventricular cavity size is normal. The right ventricular global systolic function is normal. Right Atrium: The right atrial cavity size is normal. There is no patent foramen ovale visualized. There is no evidence of patent foramen ovale shunting. A patent foramen ovale is not demonstrated with color Doppler and agitated contrast. Aortic Valve: The aortic valve is trileaflet. The aortic valve leaflets are mildly thickened. There is a trace of aortic regurgitation. There is no evidence of aortic stenosis. Mitral Valve: Moderate mitral leaflet calcification is visualized. Mitral valve leaflet mobility appears normal. There is a trace of mitral regurgitation. There is no evidence of mitral stenosis. Tricuspid Valve: The tricuspid valve leaflets are normal. There is mild tricuspid regurgitation. There is evidence of borderline pulmonary hypertension. There is no tricuspid stenosis. Pulmonic Valve: The pulmonic valve appears normal. There is mild pulmonic regurgitation. There is no pulmonic stenosis. Pericardium: The pericardium appears normal. Aorta: There is no dilatation of the ascending aorta. There is no dilatation of the aortic arch. There is mild dilatation of the aortic root. Pulmonary Artery: The main pulmonary artery appears normal. Venous: The venous system is not well visualized. Contrast: Normal saline was used as contrast for the bubble study. Intravenous contrast was used to help determine presence of intracardiac shunting. Summary: There was not any prior study for comparison. Conclusions There is normal left ventricular systolic function. The estimated ejection fraction is 55-60%. Abnormal left ventricular diastolic function is observed. A patent foramen ovale is not demonstrated with color Doppler and agitated contrast. There is a trace of aortic regurgitation. There is a trace of mitral regurgitation. Moderate mitral leaflet calcification is visualized. There is mild tricuspid regurgitation. There is mild pulmonic regurgitation. There is mild dilatation of the aortic root. Measurements Name Value Normal Range RVIDd (AP) 2D 2.8 cm (0.9 - 2.6) RVDdMajor (2D) 3.7 cm (2.2 - 4.4) RAd ISD 4CH 3.9 cm (3.4 - 4.9) RA (A4C)W 3.7 cm (2.9 - 4.6) IVSd (2D) 0.9 cm (0.6 - 1) LVPWd (2D) 0.7 cm (0.6 - 1) LVIDd (2D) 3.7 cm (3.6 - 5.4) LVIDs (2D) 2.7 cm - LV FS (2D) 28 % (25 - 45) Aortic Annulus 2.2 cm (1.4 - 2.6) Ao root diameter (2D) 3.6 cm (2.1 - 3.5) Ascending Ao 3.3 cm (2.1 - 3.4) Aortic arch 2.7 cm (1.8 - 3.4) Descending Ao 0.4 cm - LA dimension (AP) 2D 3.8 cm (2.3 - 3.8) LAd ISD 4CH 4.5 cm (2.9 - 5.3) LA ISD 4CH W 3.5 cm (2.5 - 4.5) Name Value Normal Range LA ESV SP 4CH (A/L) 41 ml - LA ESV SP 2CH (A/L) 35 ml - LA ESV BP (A/L) 39 ml - LA ESV BP (A/L) index 20 ml/m2 - LA ESV SP 4CH (MOD) 35 ml - LA ESV SP 2CH (MOD) 32 ml - Name Value Normal Range MV E-wave Vmax 0.9 m/sec - MV deceleration time 334 msec - MV A-wave Vmax 1.3 m/sec - MV E:A ratio 0.72 ratio - LV septal e' Vmax 0.04 m/sec - LV lateral e' Vmax 0.06 m/sec - LV E:e' septal ratio 22.5 ratio - LV E:e' lateral ratio 15 ratio - Name Value Normal Range AV Vmax 1.6 m/sec - AV VTI 36.7 cm - AV peak gradient 10 mmHg - AV mean gradient 4 mmHg - LVOT diameter 2.3 cm - LVOT Vmax 0.9 m/sec - LVOT VTI 26 cm - LVOT peak gradient 3.27 mmHg - LVOT mean gradient 1.88 mmHg - SV LVOT 110 ml - AR PHT 476 msec - AR peak gradient 16.41 mmHg - Name Value Normal Range TR Vmax 2.6 m/sec - TR peak gradient 27 mmHg - RAP 8 mmHg - RVSP 35 mmHg - Name Value Normal Range PV Vmax 0.6 m/sec - PV peak gradient 1.44 mmHg -
[2017-10-20] MEDS: Levothyroxine TAB* 100 MCG TAB PO SCH (05:02)
--- NOTE | 2017-10-20 06:55 | PN ---
Subjective Date of Service: 10/20/17 Interval History: Mr. Frank is somewhat confused but denies any complaint this morning. His notes that he has a persistent left face droop but that he his speech seems to be clearer and that his arm and leg weakness seem to have resolved. He denies chest pain, SOB, nausea, or abdominal pain. Objective Active Medications: Acetaminophen (Tylenol Tab*) 650 mg PO Q4H PRN Apixaban (Eliquis*) 5 mg PO BID [facility] Citalopram Hydrobromide (Celexa Tab*) 10 mg PO DAILY [facility] Dextrose (D50w Syringe 50 Ml*) 12.5 gm IV PUSH .FOR FS < 60 - SS PRN Donepezil HCl (Aricept Tab*) 5 mg PO DAILY [facility] Gadobenate Dimeglumine (Multihance* (Contrast)) 15 ml IV ONCE [facility] Insulin Human Lispro (Humalog*) 0 units SUBCUT ACHS [facility]; Protocol Levothyroxine Sodium (Synthroid Tab*) 100 mcg PO DAILY@0600 [facility] Mycophenolate Mofetil (Cellcept Tab(*)) 500 mg PO BID [facility] Ondansetron HCl (Zofran Inj*) 4 mg IV Q6H PRN Vital Signs: Temp Pulse Resp BP Pulse Ox 98.2 F 62 18 113/57 96 10/20/17 07:42 10/20/17 07:42 10/20/17 07:51 10/20/17 07:42 10/20/17 07:42 Oxygen Devices in Use Now: None Appearance: Male lying in bed in NAD, at bedside Eyes: No Scleral Icterus Ears/Nose/Mouth/Throat: Mucous Membranes Moist Neck: NL Appearance and Movements; NL JVP, Trachea Midline Respiratory: Symmetrical Chest Expansion and Respiratory Effort, Clear to Auscultation Cardiovascular: NL Sounds; No Murmurs; No JVD, No Edema Abdominal: NL Sounds; No Tenderness; No Distention Lymphatic: No Cervical Adenopathy Extremities: No Edema Skin: No Rash or Ulcers Neurological: - - Alert and oriented to self, +5 strength to B U/LEs, no ataxia , persistent left face droop, speech clear Nutrition: Taking PO's Result Diagrams: 10/19/17 05:17 10/19/17 05:17 Assess/Plan/Problems-Billing Assessment: Mr. Frank is an 82 yo male with a PMH of diabetes and dementia who was admitted on 10/18/17 with weakness, falls, and left facial droop with right pontine ischemic CVA. - Patient Problems (1) CVA (cerebral vascular accident) Comment: - R pontine CVA noted on MRI brain. - Appreciate neuro consult. Patient already on eliquis for hx of DVT, plan to increase to full 5mg dose, updated. Continue aspirin. Echo without PFO, atrial dilatation, or significant wall motion or valvular abnormalities. LDL 161 but patient does have hx of autoimmune hepatitis, so statin contraindicated. HgbA1c 7.2, will aim for tighter blood sugar control. - PT/OT and ST following. (2) Diabetes Comment: - BG 190-220s - Continue lispro SSI coverage. Hold glimperide. (3) Dementia Comment: - Continue aricept and supportive care. (4) Hypothyroid Comment: - Continue levothyroxine. (5) DVT prophylaxis Comment: - Patient with hx of DVT. - Continue eliquis. (6) Full code status Comment: Status and Disposition: Inpatient. Anticipate need for PAOLA, from [place].
[2017-10-20] MEDS: Insulin LISPRO* 1 UNITS UNIT SUBCUT SCH ×4 (08:44→21:12)
[2017-10-20] MEDS: Apixaban* 5 MG TAB PO SCH ×2 (08:44→20:30)
[2017-10-20] MEDS: Mycophenolate Mofetil TAB(*) 500 MG PO SCH ×2 (08:45→21:12)
[2017-10-20] MEDS: Donepezil TAB* 5 MG PO SCH (08:45)
[2017-10-20] MEDS: Citalopram TAB* 10 MG PO SCH (08:46)
--- NOTE | 2017-10-20 10:55 | PN ---
Progress Note - Progress Note Date of Service: 10/20/17 SOAP: Neurology progress note Date of service: 10/20/17 Subjective: No acute events overnight and no change in status. Objective: Vital Signs Temp Pulse Resp BP Pulse Ox 98.2 F 62 18 113/57 96 10/20/17 07:42 10/20/17 07:42 10/20/17 07:51 10/20/17 07:42 10/20/17 07:42 Current Medications Acetaminophen (Tylenol Tab*) 650 mg PO Q4H PRN PRN Reason: FEVER/PAIN Apixaban (Eliquis*) 5 mg PO BID [facility] Last Admin: 10/20/17 08:44 Dose: 5 mg Citalopram Hydrobromide (Celexa Tab*) 10 mg PO DAILY [facility] Last Admin: 10/20/17 08:46 Dose: 10 mg Dextrose (D50w Syringe 50 Ml*) 12.5 gm IV PUSH .FOR FS < 60 - SS PRN PRN Reason: FS < 60 Donepezil HCl (Aricept Tab*) 5 mg PO DAILY [facility] Last Admin: 10/20/17 08:45 Dose: 5 mg Gadobenate Dimeglumine (Multihance* (Contrast)) 15 ml IV ONCE [facility] Stop: 10/20/17 19:55 Insulin Human Lispro (Humalog*) 0 units SUBCUT [facility]; Protocol Last Admin: 10/20/17 08:44 Dose: 2 units Levothyroxine Sodium (Synthroid Tab*) 100 mcg PO DAILY@0600 [facility] Last Admin: 10/20/17 05:02 Dose: 100 mcg Mycophenolate Mofetil (Cellcept Tab(*)) 500 mg PO BID [facility] Last Admin: 10/20/17 08:45 Dose: 500 mg Ondansetron HCl (Zofran Inj*) 4 mg IV Q6H PRN PRN Reason: NAUSEA Laboratory Last Values WBC 7.8 10^3/ul (3.5-10.8) 10/19/17 05:17 RBC 4.91 10^6/ul (4.00-5.40) 10/19/17 05:17 Hgb 15.4 g/dl (14.0-18.0) 10/19/17 05:17 Hct 46 % (42-52) 10/19/17 05:17 MCV 93 fL (80-94) 10/19/17 05:17 MCH 31 pg (27-31) 10/19/17 05:17 MCHC 34 g/dl (31-36) 10/19/17 05:17 RDW 15 % (10.5-15) 10/19/17 05:17 Plt Count 158 10^3/ul (150-450) 10/19/17 05:17 MPV 8.7 um3 (7.4-10.4) 10/19/17 05:17 Neut % (Auto) 67.6 % (38-83) 10/19/17 05:17 Lymph % (Auto) 18.6 % (25-47) L 10/19/17 05:17 Towner % (Auto) 10.5 % (0-7) H 10/19/17 05:17 Eos % (Auto) 2.0 % (0-6) 10/19/17 05:17 Baso % (Auto) 1.3 % (0-2) 10/19/17 05:17 Absolute Neuts (auto) 5.3 10^3/ul (1.5-7.7) 10/19/17 05:17 Absolute Lymphs (auto) 1.4 10^3/ul (1.0-4.8) 10/19/17 05:17 Absolute Monos (auto) 0.8 10^3/ul (0-0.8) 10/19/17 05:17 Absolute Eos (auto) 0.2 10^3/ul (0-0.6) 10/19/17 05:17 Absolute Basos (auto) 0.1 10^3/ul (0-0.2) 10/19/17 05:17 Absolute Nucleated RBC 0 10^3/ul 10/19/17 05:17 Nucleated RBC % 0 10/19/17 05:17 INR (Anticoag Therapy) 1.02 (0.77-1.02) 10/19/17 05:17 Sodium 135 mmol/L (135-145) 10/19/17 05:17 Potassium 4.2 mmol/L (3.5-5.0) 10/19/17 05:17 Chloride 102 mmol/L (101-111) 10/19/17 05:17 Carbon Dioxide 27 mmol/L (22-32) 10/19/17 05:17 Anion Gap 6 mmol/L (2-11) 10/19/17 05:17 BUN 21 mg/dL (6-24) 10/19/17 05:17 Creatinine 1.05 mg/dL (0.67-1.17) 10/19/17 05:17 Est GFR ( Amer) 81.4 (>60) 10/19/17 05:17 Est GFR (Non-Af Amer) 67.3 (>60) 10/19/17 05:17 BUN/Creatinine Ratio 20.0 (8-20) 10/19/17 05:17 Glucose 103 mg/dL (70-100) H 10/19/17 05:17 POC Glucose (mg/dL) 161 mg/dL (70-100) H 10/20/17 07:34 Hemoglobin A1c 7.2 % (4.0-5.6) H 10/19/17 05:17 Calcium 9.0 mg/dL (8.6-10.3) 10/19/17 05:17 Total Bilirubin 0.40 mg/dL (0.2-1.0) 10/18/17 18:13 AST 28 U/L (13-39) 10/18/17 18:13 ALT 28 U/L (7-52) 10/18/17 18:13 Alkaline Phosphatase 44 U/L (34-104) 10/18/17 18:13 Total Protein 7.3 g/dL (6.4-8.9) 10/18/17 18:13 Albumin 3.9 g/dL (3.2-5.2) 10/18/17 18:13 Globulin 3.4 g/dL (2-4) 10/18/17 18:13 Albumin/Globulin Ratio 1.1 (1-3) 10/18/17 18:13 Triglycerides 75 mg/dL 10/19/17 05:17 Cholesterol 225 mg/dL 10/19/17 05:17 LDL Cholesterol 161 mg/dL 10/19/17 05:17 HDL Cholesterol 48.7 mg/dL 10/19/17 05:17 Urine Color Straw 10/18/17 22:16 Urine Appearance Clear 10/18/17 22:16 Urine pH 5.0 (5-9) 10/18/17 22:16 Ur Specific [place] 1.015 (1.010-1.030) 10/18/17 22:16 Urine Protein Negative (Negative) 10/18/17 22:16 Urine Ketones Negative (Negative) 10/18/17 22:16 Urine Blood Negative (Negative) 10/18/17 22:16 Urine Nitrate Negative (Negative) 10/18/17 22:16 Urine Bilirubin Negative (Negative) 10/18/17 22:16 Urine Urobilinogen Negative (Negative) 10/18/17 22:16 Ur Leukocyte Esterase Negative (Negative) 10/18/17 22:16 Urine Glucose 1+(50 mg/dl) (Negative) A 10/18/17 22:16 Exam: Patient is awake, not oriented to time or place. Speech has very mild dysarthria but intelligible. Has difficulty with naming. Pupils symmetric and reactive to light. Visual koehler are intact by confrontation. Slight facial droop on the left side, sparing the forehead. Tongue in midline and palate elevates upward. V1-3 intact to light and pinprick bilaterally. On motor, he has mild pronator drift on the left side. Otherwise, strength is 5/5 throughout. There is some ataxia in the left hand in finger to nose, but no clear dysmetria. Sensation is intact in the upper and lower extremities bilaterally. Gait not tested this morning. Assessment and Plan: 82-year-old male with history of Alzheimer disease, and autoimmune hepatitis, now presenting with a stroke in the right [place] area. He is already on anticoagulation for history of DVT, and the dose of his Eliquis was increased to 5 mg bid since yesterday. Continue anticoagulatoin. Statins are contraindicated because of hepatitis. The risk of hemorrhagic conversion in acute stroke had been discussed with the family yesterday.
[2017-10-21] MEDS: Levothyroxine TAB* 100 MCG TAB PO SCH (05:41)
[2017-10-21] MEDS: Mycophenolate Mofetil TAB(*) 500 MG PO SCH ×2 (07:51→20:49)
[2017-10-21] MEDS: Citalopram TAB* 10 MG PO SCH (07:51)
[2017-10-21] MEDS: Donepezil TAB* 5 MG PO SCH (07:51)
[2017-10-21] MEDS: Insulin LISPRO* 1 UNITS UNIT SUBCUT SCH ×4 (07:51→20:45)
[2017-10-21] MEDS: Apixaban* 5 MG TAB PO SCH ×2 (07:51→20:45)
--- NOTE | 2017-10-21 08:19 | PN ---
Subjective Date of Service: 10/21/17 Interval History: Mr. Frank denies complaint. He seems a bit confused about the events of this hospitalization. He denies any complaint including chest pain, SOB, nausea , or abdominal pain. He feels strong in his left arm. Objective Active Medications: Acetaminophen (Tylenol Tab*) 650 mg PO Q4H PRN Apixaban (Eliquis*) 5 mg PO BID [facility] Citalopram Hydrobromide (Celexa Tab*) 10 mg PO DAILY [facility] Dextrose (D50w Syringe 50 Ml*) 12.5 gm IV PUSH .FOR FS < 60 - SS PRN Donepezil HCl (Aricept Tab*) 5 mg PO DAILY [facility] Insulin Human Lispro (Humalog*) 0 units SUBCUT ACHS [facility]; Protocol Levothyroxine Sodium (Synthroid Tab*) 100 mcg PO DAILY@0600 [facility] Mycophenolate Mofetil (Cellcept Tab(*)) 500 mg PO BID [facility] Ondansetron HCl (Zofran Inj*) 4 mg IV Q6H PRN Vital Signs: Temp Pulse Resp BP Pulse Ox 97.2 F 66 16 109/54 96 10/21/17 03:49 10/21/17 03:49 10/21/17 03:49 10/21/17 03:49 10/21/17 03:49 Oxygen Devices in Use Now: None Appearance: Male sitting up in chair eating lunch in NAD Eyes: No Scleral Icterus Ears/Nose/Mouth/Throat: Mucous Membranes Moist Neck: Trachea Midline Respiratory: Symmetrical Chest Expansion and Respiratory Effort, Clear to Auscultation Cardiovascular: NL Sounds; No Murmurs; No JVD, No Edema Abdominal: NL Sounds; No Tenderness; No Distention Lymphatic: No Cervical Adenopathy Extremities: No Edema Skin: No Rash or Ulcers Neurological: - - Alert and oriented to self, some confusion about his location , moves all extremities equally, left facial droop less pronounced Nutrition: Taking PO's Result Diagrams: 10/19/17 05:17 10/19/17 05:17 Assess/Plan/Problems-Billing Assessment: Mr. Frank is an 82 yo male with a PMH of diabetes and dementia who was admitted on 10/18/17 with weakness, falls, and left facial droop with right pontine ischemic CVA. - Patient Problems (1) CVA (cerebral vascular accident) Comment: - R pontine CVA noted on MRI brain. - Appreciate neuro consult. Patient already on eliquis for hx of DVT, plan to increase to full 5mg dose, updated. Continue aspirin. Echo without PFO, atrial dilatation, or significant wall motion or valvular abnormalities. LDL 161 but patient does have hx of autoimmune hepatitis, so statin contraindicated. HgbA1c 7.2, will aim for tighter blood sugar control. - PT/OT and ST following. (2) Diabetes Comment: - BG 120-200s - Continue lispro SSI coverage. Hold glimepiride. (3) Dementia Comment: - Continue aricept and supportive care. (4) Hypothyroid Comment: - Continue levothyroxine. (5) DVT prophylaxis Comment: - Patient with hx of DVT. - Continue eliquis. (6) Full code status Comment: Status and Disposition: Inpatient. From [place], is progressing well but may need PAOLA.
--- NOTE | 2017-10-21 11:16 | PN ---
Progress Note - Progress Note Date of Service: 10/21/17 SOAP: Neurology progress note Date of service 10/21/17 Subjective: No acute events overnight. Objective: Vital Signs Temp Pulse Resp BP Pulse Ox 98.8 F 77 18 118/62 95 10/21/17 07:53 10/21/17 07:53 10/21/17 08:00 10/21/17 07:53 10/21/17 07:53 Current Medications Acetaminophen (Tylenol Tab*) 650 mg PO Q4H PRN PRN Reason: FEVER/PAIN Apixaban (Eliquis*) 5 mg PO BID [facility] Last Admin: 10/21/17 07:51 Dose: 5 mg Citalopram Hydrobromide (Celexa Tab*) 10 mg PO DAILY [facility] Last Admin: 10/21/17 07:51 Dose: 10 mg Dextrose (D50w Syringe 50 Ml*) 12.5 gm IV PUSH .FOR FS < 60 - SS PRN PRN Reason: FS < 60 Donepezil HCl (Aricept Tab*) 5 mg PO DAILY [facility] Last Admin: 10/21/17 07:51 Dose: 5 mg Insulin Human Lispro (Humalog*) 0 units SUBCUT ACHS [facility]; Protocol Last Admin: 10/21/17 07:51 Dose: Not Given Levothyroxine Sodium (Synthroid Tab*) 100 mcg PO DAILY@0600 [facility] Last Admin: 10/21/17 05:41 Dose: 100 mcg Mycophenolate Mofetil (Cellcept Tab(*)) 500 mg PO BID [facility] Last Admin: 10/21/17 07:51 Dose: 500 mg Ondansetron HCl (Zofran Inj*) 4 mg IV Q6H PRN PRN Reason: NAUSEA No new labs Exam: Patient is awake, not oriented to time or place. Speech has very mild dysarthria but intelligible, and has improved compared to yesterday. Pupils symmetric and reactive to light. Visual koehler are intact by confrontation. Slight facial droop on the left side, sparing the forehead. Tongue in midline and palate elevates upward. V1-3 intact to light and pinprick bilaterally. On motor, he has a very mild pronator drift on the left side. Otherwise, strength is 5/5 throughout. There is some ataxia in the left hand in finger to nose, but no clear dysmetria. Sensation is intact in the upper and lower extremities bilaterally. Gait not tested this morning. Assessment and Plan: 82-year-old male with history of Alzheimer disease, and autoimmune hepatitis, now presenting with a stroke in the right [place] area. He is already on anticoagulation for history of DVT, and the dose of his Eliquis was increased to 5 mg bid. Continue anticoagulatoin. Statins are contraindicated because of hepatitis. No active neurological issues at this time.
[2017-10-22] MEDS: Levothyroxine TAB* 100 MCG TAB PO SCH (05:27)
[2017-10-22] MEDS: Insulin LISPRO* 1 UNITS UNIT SUBCUT SCH ×4 (07:45→20:31)
[2017-10-22] MEDS: Citalopram TAB* 10 MG PO SCH (07:46)
[2017-10-22] MEDS: Apixaban* 5 MG TAB PO SCH ×2 (07:46→20:32)
[2017-10-22] MEDS: Donepezil TAB* 5 MG PO SCH (07:46)
[2017-10-22] MEDS: Mycophenolate Mofetil TAB(*) 500 MG PO SCH ×2 (07:46→20:33)
--- NOTE | 2017-10-22 12:43 | PN ---
Subjective Date of Service: 10/22/17 Interval History: He is doing well and is feeding himself. He had an uneventful night last night. ROS: He denied any headache, visual disturbance, chest pain, or palpitation. Objective Active Medications: Acetaminophen (Tylenol Tab*) 650 mg PO Q4H PRN PRN Reason: FEVER/PAIN Apixaban (Eliquis*) 5 mg PO BID [facility] Last Admin: 10/22/17 07:46 Dose: 5 mg Citalopram Hydrobromide (Celexa Tab*) 10 mg PO DAILY [facility] Last Admin: 10/22/17 07:46 Dose: 10 mg Dextrose (D50w Syringe 50 Ml*) 12.5 gm IV PUSH .FOR FS < 60 - SS PRN PRN Reason: FS < 60 Donepezil HCl (Aricept Tab*) 5 mg PO DAILY [facility] Last Admin: 10/22/17 07:46 Dose: 5 mg Insulin Human Lispro (Humalog*) 0 units SUBCUT ACHS [facility]; Protocol Last Admin: 10/22/17 12:28 Dose: 3 units Levothyroxine Sodium (Synthroid Tab*) 100 mcg PO DAILY@0600 [facility] Last Admin: 10/22/17 05:27 Dose: 100 mcg Mycophenolate Mofetil (Cellcept Tab(*)) 500 mg PO BID [facility] Last Admin: 10/22/17 07:46 Dose: 500 mg Ondansetron HCl (Zofran Inj*) 4 mg IV Q6H PRN PRN Reason: NAUSEA Vital Signs 10/21/17 10/21/17 10/21/17 15:41 19:33 20:00 Temperature 98.1 F 98.8 F Pulse Rate 58 64 Respiratory 24 16 16 Rate Blood Pressure 147/65 132/59 (mmHg) O2 Sat by Pulse 100 100 Oximetry 10/22/17 10/22/17 10/22/17 00:28 03:15 06:49 Temperature 97.4 F 97.7 F Pulse Rate 62 72 Respiratory 20 18 14 Rate Blood Pressure 122/64 126/66 (mmHg) O2 Sat by Pulse 96 97 Oximetry 10/22/17 10/22/17 08:22 11:27 Temperature 97.7 F 97.3 F Pulse Rate 82 65 Respiratory 16 16 Rate Blood Pressure 111/63 114/60 (mmHg) O2 Sat by Pulse 95 97 Oximetry Oxygen Devices in Use Now: None Neurology Exam: General: Frail appearing man in no acute distress. HEENT: Normocephelic/atraumatic, sclera anicteric, mucous membranes moist Neck: Supple Extremities: No clubbing, cyanosis, or edema Neurological Findings: Awake, Alert, oriented to self and place but not circumstances. Mild dysarthria. He was clearing his throat when interviewed. Cranial Nerve: PEERL, EOM intact, mild left facial droop. Motor: pronator drift and long tract pyramidal weakness on the left. Sensation: intact to LT/PP bilaterally upper and lower extremities Deep Tendon Reflex: 1+ on the right and 2+ on the left brachioradialis, biceps, and triceps. Normal finger to nose on the right with mild motor dysmetria on the left. Gait: wide based, walker dependent Result Diagrams: 10/19/17 05:17 10/19/17 05:17 Microbiology and Other Data: Microbiology 10/19/17 08:15 Nasal Screen MRSA (PCR) - Final Nasal Mrsa Not Detected Assessment/Plan Assessment: 1. Acute right pontine stroke with left hemiparesis- Mechanism: secondary to small vessel disease On Eliquis, dose recently increased. We discussed fall precautions as he is at risk for falls. He needs [employer]NAGER treatments as outpatient as the location of the stroke increases risk for aspiration Secondary stroke preventions discussed Statin therapy contraindicated due hepatitis 2. Dementia- on Aricept. He should follow-up with us in 3-4 weeks. The office will contact Mrs. Frank for an appointment. I will sign off but I am available for any questions or concerns.
--- NOTE | 2017-10-22 16:50 | PN ---
Subjective Date of Service: 10/22/17 Interval History: Patient seen and examined. Discussed POC with , as patient has dementia and is confused at baseline. NAD noted, follows commands, no complaints. Objective Active Medications: Acetaminophen (Tylenol Tab*) 650 mg PO Q4H PRN PRN Reason: FEVER/PAIN Apixaban (Eliquis*) 5 mg PO BID [facility] Last Admin: 10/22/17 07:46 Dose: 5 mg Citalopram Hydrobromide (Celexa Tab*) 10 mg PO DAILY [facility] Last Admin: 10/22/17 07:46 Dose: 10 mg Dextrose (D50w Syringe 50 Ml*) 12.5 gm IV PUSH .FOR FS < 60 - SS PRN PRN Reason: FS < 60 Donepezil HCl (Aricept Tab*) 5 mg PO DAILY [facility] Last Admin: 10/22/17 07:46 Dose: 5 mg Insulin Human Lispro (Humalog*) 0 units SUBCUT ACHS [facility]; Protocol Last Admin: 10/22/17 12:28 Dose: 3 units Levothyroxine Sodium (Synthroid Tab*) 100 mcg PO DAILY@0600 [facility] Last Admin: 10/22/17 05:27 Dose: 100 mcg Mycophenolate Mofetil (Cellcept Tab(*)) 500 mg PO BID [facility] Last Admin: 10/22/17 07:46 Dose: 500 mg Ondansetron HCl (Zofran Inj*) 4 mg IV Q6H PRN PRN Reason: NAUSEA Vital Signs - 8 hr 10/22/17 10/22/17 11:27 15:31 Temperature 97.3 F 97.5 F Pulse Rate 65 59 Respiratory 16 20 Rate Blood Pressure 114/60 125/58 (mmHg) O2 Sat by Pulse 97 99 Oximetry Oxygen Devices in Use Now: None Appearance: Alert, NAD Eyes: PERRLA Ears/Nose/Mouth/Throat: NL Teeth, Lips, Gums, Mucous Membranes Moist Neck: NL Appearance and Movements; NL JVP Respiratory: Symmetrical Chest Expansion and Respiratory Effort, Clear to Auscultation Cardiovascular: NL Sounds; No Murmurs; No JVD Extremities: No Edema, No Clubbing, Cyanosis Neurological: - - confused, appropriate Nutrition: Taking PO's, - - modified diet/chopped Result Diagrams: 10/19/17 05:17 10/19/17 05:17 Microbiology and Other Data: Microbiology 10/19/17 08:15 Nasal Screen MRSA (PCR) - Final Nasal Mrsa Not Detected Diagnostic Imaging: Patient Name: AMAN AVILEZ Medical Record#: [id number] Ordering Physician: Sha Angeles [employer] Acct.#: [id number] : 1935 Age: 82 Sex: M Location: [address] [place] [address] - MEDICAL/TELEMETRY Exam Date: 10/18/17 1557 ADM Status: ADM IN Order Information: MRI BRAIN W/O Accession Number: [id number] CPT: 27642 Indication: Stroke. Image sequences: Sagittal and axial T1, axial T2, FLAIR, diffusion and susceptibility weighted images of the brain were obtained. Ventricular structures are midline. No midline shift is noted. The extra-axial spaces are unremarkable. There is central and cortical atrophy noted. There is a focal area of restriction of diffusion involving the right florinda consistent with a right pontine infarct. No other areas of restricted diffusion is noted. Minimal periventricular lucency consistent with chronic ischemic White matter change is present. The orbits and paranasal sinuses are otherwise unremarkable. IMPRESSION: Restricted diffusion in the right flor[place] consistent with a right pontine infarct. Central and cortical atrophy is present. <Electronically signed by Meagan Devine MD in [place]> 10/18/171933 Dictated By: Meagan Devine MD Dictated Date/Time: 10/18/171933 Transcribed Date/Time: 10/18/171930 Copy to: Assess/Plan/Problems-Billing Assessment: This is an 82 year old male with dementia that presented with left sided hemiparesis 2/2 acute right pontine stroke. - Patient Problems (1) Right pontine CVA Code(s): I63.50 - CEREB INFRC DUE TO UNSP OCCLS OR STENOS OF UNSP CEREB ARTERY SNOMED Code(s): 065648060 Comment: - Continue eliquis at increased dose - Continue PT/OT - No statin given liver disease - Follow up neuro in 3-4 weeks (2) Dementia Code(s): F03.90 - UNSPECIFIED DEMENTIA WITHOUT BEHAVIORAL DISTURBANCE SNOMED Code(s): 46684108 Comment: - Continue aricept and supportive care. (3) Diabetes Code(s): E11.9 - TYPE 2 DIABETES MELLITUS WITHOUT COMPLICATIONS SNOMED Code(s) : 69264518 Comment: - BG 120-200s - Continue lispro SSI coverage. Hold glimepiride until DC (4) Hypothyroid Code(s): E03.9 - HYPOTHYROIDISM, UNSPECIFIED SNOMED Code(s): 37089425 Comment: - Continue levothyroxine. (5) DVT prophylaxis Code(s): QEU3721 - SNOMED Code(s): 121382456 Comment: - Patient with hx of DVT. - Continue eliquis. (6) Full code status Code(s): Z78.9 - OTHER SPECIFIED HEALTH STATUS SNOMED Code(s): 471125027 Comment: Status and Disposition: Inpatient. From [place], did well with PT, waiting for [place] to decide if patient is appropriate to go back.
[2017-10-23] MEDS: Levothyroxine TAB* 100 MCG TAB PO SCH (05:41)
[2017-10-23] MEDS: Donepezil TAB* 5 MG PO SCH (08:27)
[2017-10-23] MEDS: Citalopram TAB* 10 MG PO SCH (08:27)
[2017-10-23] MEDS: Insulin LISPRO* 1 UNITS UNIT SUBCUT SCH ×4 (08:27→19:50)
[2017-10-23] MEDS: Mycophenolate Mofetil TAB(*) 500 MG PO SCH ×2 (08:28→19:50)
[2017-10-23] MEDS: Apixaban* 5 MG TAB PO SCH ×2 (08:28→19:51)
--- NOTE | 2017-10-23 13:00 | PN ---
Subjective Date of Service: 10/23/17 Interval History: Patient seen and examined. NAD, remains confused but appropriate and follows commands. No complaints, eating all meals and ambulating with contact guard assist only. Objective Active Medications: Acetaminophen (Tylenol Tab*) 650 mg PO Q4H PRN PRN Reason: FEVER/PAIN Apixaban (Eliquis*) 5 mg PO BID [facility] Last Admin: 10/23/17 08:28 Dose: 5 mg Citalopram Hydrobromide (Celexa Tab*) 10 mg PO DAILY [facility] Last Admin: 10/23/17 08:27 Dose: 10 mg Dextrose (D50w Syringe 50 Ml*) 12.5 gm IV PUSH .FOR FS < 60 - SS PRN PRN Reason: FS < 60 Donepezil HCl (Aricept Tab*) 5 mg PO DAILY [facility] Last Admin: 10/23/17 08:27 Dose: 5 mg Insulin Human Lispro (Humalog*) 0 units SUBCUT ACHS [facility]; Protocol Last Admin: 10/23/17 12:42 Dose: 9 units Levothyroxine Sodium (Synthroid Tab*) 100 mcg PO DAILY@0600 [facility] Last Admin: 10/23/17 05:41 Dose: 100 mcg Mycophenolate Mofetil (Cellcept Tab(*)) 500 mg PO BID [facility] Last Admin: 10/23/17 08:28 Dose: 500 mg Ondansetron HCl (Zofran Inj*) 4 mg IV Q6H PRN PRN Reason: NAUSEA Vital Signs - 8 hr 10/23/17 10/23/17 07:41 07:48 Temperature 98.1 F Pulse Rate 67 Respiratory 18 16 Rate Blood Pressure 125/62 (mmHg) O2 Sat by Pulse 97 Oximetry Oxygen Devices in Use Now: None Appearance: Alert, confused, NAD Eyes: No Scleral Icterus, PERRLA Ears/Nose/Mouth/Throat: Clear Oropharnyx, Mucous Membranes Moist Neck: NL Appearance and Movements; NL JVP, Trachea Midline Respiratory: Symmetrical Chest Expansion and Respiratory Effort, Clear to Auscultation Cardiovascular: NL Sounds; No Murmurs; No JVD, No Edema, - Abdominal: NL Sounds; No Tenderness; No Distention Extremities: No Edema, No Clubbing, Cyanosis Skin: No Rash or Ulcers Neurological: NL Sensation, - - alert to person and place Nutrition: Taking PO's, - Result Diagrams: 10/19/17 05:17 10/19/17 05:17 Microbiology and Other Data: Microbiology 10/19/17 08:15 Nasal Screen MRSA (PCR) - Final Nasal Mrsa Not Detected Diagnostic Imaging: Patient Name: AMNA AVILEZ Medical Record#: [id number] Ordering Physician: Sha Angeles 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 Image sequences: Sagittal and axial T1, axial T2, FLAIR, diffusion and susceptibility weighted images of the brain were obtained. Ventricular structures are midline. No midline shift is noted. The extra-axial spaces are unremarkable. There is central and cortical atrophy noted. There is a focal area of restriction of diffusion involving the right florinda consistent with a right pontine infarct. No other areas of restricted diffusion is noted. Minimal periventricular lucency consistent with chronic ischemic White matter change is present. The orbits and paranasal sinuses are otherwise unremarkable. IMPRESSION: Restricted diffusion in the right florinda consistent with a right pontine infarct. Central and cortical atrophy is present. <Electronically signed by Meagan Devine MD in OV> 10/18/171933 Dictated By: Meagan Devine MD Dictated Date/Time: 10/18/171933 Transcribed Date/Time: 10/18/171930 Copy to: Assess/Plan/Problems-Billing Assessment: This is an 82 year old male with dementia that presented with left sided hemiparesis 2/2 acute right pontine stroke. - Patient Problems (1) Right pontine CVA Code(s): I63.50 - CEREB INFRC DUE TO UNSP OCCLS OR STENOS OF UNSP CEREB ARTERY SNOMED Code(s): 300154569 Comment: - Continue eliquis at increased dose - Continue PT/OT - No statin given liver disease - Follow up neuro in 3-4 weeks (2) Dementia Code(s): F03.90 - UNSPECIFIED DEMENTIA WITHOUT BEHAVIORAL DISTURBANCE SNOMED Code(s): 61969439 Comment: - Continue aricept and supportive care. (3) Diabetes Code(s): E11.9 - TYPE 2 DIABETES MELLITUS WITHOUT COMPLICATIONS SNOMED Code(s) : 74824431 Comment: - BG 120-200s - Continue lispro SSI coverage. Hold glimepiride until DC (4) Hypothyroid Code(s): E03.9 - HYPOTHYROIDISM, UNSPECIFIED SNOMED Code(s): 21998642 Comment: - Continue levothyroxine. (5) DVT prophylaxis Code(s): EOX0025 - SNOMED Code(s): 557319319 Comment: - Patient with hx of DVT. - Continue eliquis. (6) Full code status Code(s): Z78.9 - OTHER SPECIFIED HEALTH STATUS SNOMED Code(s): 735881808 Comment: Status and Disposition: Medically stable for DC today. Per notes, Cora evaluated and states patient not appropriate to return. Requested speech to re-evaluate, as patient is eating all meals unassisted and ambulating with walker without difficulty and does not require higher level skilled care at this time.
--- NOTE | 2017-10-23 15:32 | PN ---
Subjective Date of Service: 10/23/17 Interval History: Uneventful night. No complaints. Pleasantly demented. No acute issue. Objective Active Medications: Acetaminophen (Tylenol Tab*) 650 mg PO Q4H PRN PRN Reason: FEVER/PAIN Apixaban (Eliquis*) 5 mg PO BID [facility] Last Admin: 10/23/17 08:28 Dose: 5 mg Citalopram Hydrobromide (Celexa Tab*) 10 mg PO DAILY [facility] Last Admin: 10/23/17 08:27 Dose: 10 mg Dextrose (D50w Syringe 50 Ml*) 12.5 gm IV PUSH .FOR FS < 60 - SS PRN PRN Reason: FS < 60 Donepezil HCl (Aricept Tab*) 5 mg PO DAILY [facility] Last Admin: 10/23/17 08:27 Dose: 5 mg Insulin Human Lispro (Humalog*) 0 units SUBCUT [facility]; Protocol Last Admin: 10/23/17 12:42 Dose: 9 units Levothyroxine Sodium (Synthroid Tab*) 100 mcg PO DAILY@0600 [facility] Last Admin: 10/23/17 05:41 Dose: 100 mcg Mycophenolate Mofetil (Cellcept Tab(*)) 500 mg PO BID [facility] Last Admin: 10/23/17 08:28 Dose: 500 mg Ondansetron HCl (Zofran Inj*) 4 mg IV Q6H PRN PRN Reason: NAUSEA Vital Signs 10/22/17 10/22/17 10/22/17 15:31 19:16 19:29 Temperature 97.5 F 97.8 F Pulse Rate 59 94 Respiratory 20 20 20 Rate Blood Pressure 125/58 105/59 (mmHg) O2 Sat by Pulse 99 95 Oximetry 10/22/17 10/23/17 10/23/17 23:50 03:34 07:41 Temperature 97.6 F 97.9 F Pulse Rate 88 70 Respiratory 18 18 18 Rate Blood Pressure 139/85 111/54 (mmHg) O2 Sat by Pulse 98 95 Oximetry 10/23/17 10/23/17 07:48 15:16 Temperature 98.1 F Pulse Rate 67 66 Respiratory 16 18 Rate Blood Pressure 125/62 127/59 (mmHg) O2 Sat by Pulse 97 100 Oximetry Oxygen Devices in Use Now: None Neurology Exam: General: Chronically fatigued man in no acute distress. HEENT: Normocephelic/atraumatic, sclera anicteric, mucous membranes moist Neck: Supple Neurological Findings: Awake, Alert, Oriented to self but not place or time. Cranial Nerve: PEERL, EOM intact, VFF, no nystagmus, face symmetric bilaterally. Motor: moves all extremities to command with mild 4/5 long tract pyramidal weakness on the left upper and lower extremities. Sensation: intact to LT/PP bilaterally upper and lower extremities Finger to nose, rapid alternating movements intact without tremor Gait: walker dependent Result Diagrams: 10/19/17 05:17 10/19/17 05:17 Microbiology and Other Data: Microbiology 10/19/17 08:15 Nasal Screen MRSA (PCR) - Final Nasal Mrsa Not Detected Diagnostic Imaging: Patient Name: AMAN AVILEZ Medical Record#: [id number] Ordering Physician: Sha Angeles [employer] Acct.#: [id number] : 1935 Age: 82 Sex: M Location: [address] [place] [address] MEDICAL/TELEMETRY Exam Date: 10/18/171556 ADM Status: ADM IN Order Information: MRI BRAIN W/O Accession Number: [id number] CPT: 31095 Indication: Stroke. Image sequences: Sagittal and axial T1, axial T2, FLAIR, diffusion and susceptibility weighted images of the brain were obtained. Ventricular structures are midline. No midline shift is noted. The extra-axial spaces are unremarkable. There is central and cortical atrophy noted. There is a focal area of restriction of diffusion involving the right florinda consistent with a right pontine infarct. No other areas of restricted diffusion is noted. Minimal periventricular lucency consistent with chronic ischemic White matter change is present. The orbits and paranasal sinuses are otherwise unremarkable. IMPRESSION: Restricted diffusion in the right florinda consistent with a right pontine infarct. Central and cortical atrophy is present. <Electronically signed by Meagan Devine MD in OV> 10/18/171933 Dictated By: Meagan Devine MD Dictated Date/Time: 10/18/171933 Transcribed Date/Time: 10/18/171930 Copy to: Assessment/Plan Assessment: 1. 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 On Eliquis 5 mg twice daily. Ready for discharge. Not sure if [facility] wants to take the patient back without some rehabilitation. I will sign off. Please contact me for any questions or concerns.
[2017-10-24] MEDS: Levothyroxine TAB* 100 MCG TAB PO SCH (05:14)
[2017-10-24] MEDS: Citalopram TAB* 10 MG PO SCH (08:47)
[2017-10-24] MEDS: Donepezil TAB* 5 MG PO SCH (08:47)
[2017-10-24] MEDS: Apixaban* 5 MG TAB PO SCH (08:47)
[2017-10-24] MEDS: Mycophenolate Mofetil TAB(*) 500 MG PO SCH (08:47)
[2017-10-24] MEDS: Insulin LISPRO* 1 UNITS UNIT SUBCUT SCH ×2 (08:47→13:00)
[2017-10-24 11:55] VITALS: BP 108/51
--- NOTE | 2017-10-24 14:39 | DS ---
CC: Dr. Dominguez, Neurology; Dr. Abdirahman Boggs * DATE OF ADMISSION: 10/18/2017. DATE OF DISCHARGE: 10/24/2017. PRIMARY CARE PHYSICIAN: Dr. Abdirahman Boggs. ATTENDING PHYSICIAN FOR THIS ADMISSION: Dr. Edison Serrato. MY ATTENDING PHYSICIAN FOR TODAY: Dr. Emanuel Mckeon * (dictated by Pablo Haywood NP). HOSPITAL COURSE: This is an 82-year-old male patient who lives in the [facility] care portion of [place]. The patient presented to the emergency department with a left-sided hemiparesis. While he was in his usual state of health at [place], he was brought to the emergency department for evaluation. Diagnostics revealed a right pontine CVA. The patient was already anticoagulated with Eliquis at a low dose. His Eliquis was increased to a therapeutic dose of 5 mg two times a day. The patient cannot have a statin secondary to hepatitis, so we cannot maximum his cholesterol; however, anticoagulation and aspirin was determined to be the best mode of care as per Neurology. The patient initially was thought to have some swallowing difficulties. He had a diet modification when he first arrived; however, Speech re-evaluated the patient yesterday and placed him back on regular diet. He is ambulatory with his walker with minimal assistance and he is completely back to baseline at this time. The patient was cleared for discharge back to [place] on 10/23/2017. The patient will be discharged this afternoon. DISCHARGE DIAGNOSES: 1. Right pontine CVA with no latent deficiencies. 2. History of dementia, stable at baseline. 3. History of diabetes, blood sugar well-controlled. 4. Hypothyroidism, stable on Levothyroxine. 5. History of chronic liver disease, currently stable. DISCHARGE MEDICATIONS: 1. MiraLax one packet daily as needed. 2. Vitamin D3 2,000 units daily. 3. Oyster shell calcium one tablet p.o. daily. 4. Glimepiride 2 mg in the morning. 5. Donepezil 5 mg at bedtime. 6. Celexa 10 mg daily. 7. Tylenol 325 mg q.4 hours as needed. 8. Levothyroxine 100 mcg daily. 9. CellCept 1,000 mg two times a day. 10. Apixaban 5 mg p.o. b.i.d. DAY OF DISCHARGE REVIEW OF SYSTEMS: The patient has no acute complaints. He is confused at baseline, but does follow commands. Denies any chest pain, no shortness of breath, no abdominal pain, no nausea, no vomiting, no aches or pains noted, and no further complaints. PHYSICAL EXAMINATION ON THE DAY OF DISCHARGE: Vital Signs: Blood pressure 108/ 51, heart rate 62, respiratory rate 20, O2 saturation 97 percent on room air with a temperature of 97.4. HEENT: The patient is atraumatic, normocephalic. PERRLA with nonicteric sclerae. Neck: Supple, nontender. No JVD noted. No carotid bruit auscultated. Cardiovascular: S1, S2 present. No murmurs, gallops, or rubs noted. Rate and rhythm are currently regular. Lungs: Clear bilaterally to auscultation with no wheezing, rhonchi, or rales. Abdomen: Soft , nontender, nondistended. He has no organomegaly noted. He has positive bowel sounds all four quadrants. : Deferred. The patient does have bouts of incontinence and is wearing a brief. Musculoskeletal: There is no clubbing and no cyanosis, no edema of the lower extremities. He has +2 distal pulses palpable. He has a steady gait with his walker. Neurologic: He is confused at baseline with no acute deficits and no new focalities. Psychiatric: He is confused, but always appropriate and able to follow simple commands. LABORATORY DATA: WBC 7.8, RBC 4.91, hemoglobin 15.4, hematocrit 46, platelets 158; sodium 135, potassium 4.2, chloride 102, CO2 27, BUN 21, creatinine 1.05, GFR 67.3, glucose ranges from 103 to 161, hemoglobin A1c is 7.2, calcium 9.0, bilirubin 0.40, AST 28, ALT 28, alk phos 44, protein 7.3, albumin 3.9, globulin 3.4, triglycerides 75, cholesterol 225 total, LDL 161, HDL 48.7. Urinalysis is negative for any acute process. INR is 1.02. IMAGIN. MRI of the brain dated 10/18/2017 shows restricted diffusion in the right florinda consistent with a right pontine infarct; central and cortical atrophy is present. 2. Head and neck MRA shows right posterior cerebral artery demonstrates focal areas of stenosis and likely poststenotic dilatation; the left posterior cerebral artery is unremarkable; no branch occlusion is identified. For the neck, atheromatous disease; right greater than left ostial stenosis of the vertebral arteries bilaterally with no internal carotid artery stenosis by NASCET criteria. DISPOSITION: The patient will be discharged back to [facility]. There will be family transport back to his facility. He can have a diabetic regular consistency unrestricted diet. Activity as tolerated. Medications as above. The only change is Eliquis which has been increased and that medication has [facility]. The patient should follow-up with Dr. Abdirahman Boggs as needed, hopefully is actually coordinating a follow-up appointment with him as soon as she is able to. Neurology, can follow-up in four weeks or as needed prior to the next follow-up appointment. The patient was discharged in stable condition. is aware of the discharge plan today and has verbalized her understanding of his discharge instructions and new medications. PABLO HAYWOOD NP [id number]/[facility] #: [id number] HERNANDEZ
== END 2017-10-24 14:00 | DRG 65 ==
LOC: MED 14:54 → MEDTELE 15:54
PROVIDERS: ADMIT Internal Medicine; ATTEND Internal Medicine
DX: I63.29 Cerebral infarction due to unspecified occlusion or stenosis of other precerebral arteries (principal); G81.94 Hemiplegia, unspecified affecting left nondominant side; R29.810 Facial weakness; R47.81 Slurred speech; C61 Malignant neoplasm of prostate; K75.4 Autoimmune hepatitis; G30.9 Alzheimer's disease, unspecified; F02.80 Dementia in other diseases classified elsewhere, unspecified severity, without behavioral disturbance, psychotic disturbance, mood disturbance, and anxiety; E11.9 Type 2 diabetes mellitus without complications; E03.9 Hypothyroidism, unspecified; Z86.718 Personal history of other venous thrombosis and embolism; Z79.01 Long term (current) use of anticoagulants; Z79.1 Long term (current) use of non-steroidal anti-inflammatories (NSAID); Z79.899 Other long term (current) drug therapy; Z82.49 Family history of ischemic heart disease and other diseases of the circulatory system; Z79.4 Long term (current) use of insulin
CPT/HCPCS: 36415; 70544; 70549; 70551; 71045; 80048; 80053; 80061; 81003; 83036; 85025; 85610; 87641; 93306; A9270-GY; A9577; G8978-GP-CJ; G8978-GP-CK; G8979-GP-CI; G8996-GN-CI; G8997-GN-CH; G8998-GN-CH

== ENCOUNTER 2017-12-30 19:12 | Observation (INO) | payer MEDICARE ==
[2017-12-30] MEDS ORDERED: NS 0.9% 1000 ML*IV.FLUID IV ONE (19:44)
[2017-12-30] MEDS ORDERED: Acetaminophen TAB* 325 MG PO ONE (19:45)
--- NOTE | 2017-12-30 19:47 | ED ---
Neurological HPI - HPI Summary HPI Summary: Patient is a 82 y/o M BIBA w/ c/o neurological deficit onsetting sometime after last night. Patient's daughter reports that patient has different ambulation, being more hunched over than normal. She also notes that patient has a fever and a cough. Patient was first observed to have different ambulation at 1100 today, last known well was last night as reported by staff at [place], where patient resides. Sx are reported to have progressively worsened throughout the day. Patient states "I think I'm fine." Patient sometimes uses a walker. Daughter reports patient had a stroke this past October w/ similar Sx. On triage , pain is denied, nothing is noted to aggravate/alleviate Sx. Home medications and allergies are reviewed. - History of Current Complaint Chief Complaint: EDNeurologicalDeficit Stated Complaint: CONFUSION Time Seen by Provider: 12/30/17 19:35 Hx Obtained From: Patient, Family/Shellfish Sorter - patient's daugher Onset/Duration: Started hours ago - different ambulation first noted at 1100, Still Present, Worse Since Timing: Constant Current Severity: None - pain is denied 0/10 Pain Intensity: 0 Pain Scale Used: 0-10 Numeric - 0/10 Character: Other: - different ambulation, more hunched over Aggravating: Nothing Alleviating: Nothing Associated Signs and Symptoms: Positive: Fever - Allergy/Home Medications Allergies/Adverse Reactions: Allergies Allergy/AdvReac Type Severity Reaction Status Date / Time No Known Allergies Allergy Verified 10/16/17 15:44 Home Medications: Home Medications Melatonin [Melatonin Maximum Strengt] 10 mg PO DAILY 12/30/17 [History Confirmed 12/30/17] Rosuvastatin Calcium 5 mg PO DAILY 12/30/17 [History Confirmed 12/30/17] PMH/Surg Hx/FS Hx/Imm Hx Endocrine/Hematology History: Reports: Hx Diabetes Cardiovascular History: Reports: Hx Deep Vein Thrombosis Denies: Hx Hypertension, Hx Pacemaker/ICD Musculoskeletal History: Reports: Other Musculoskeletal History - left sided weakness this admission Sensory History: Reports: Hx Contacts or Glasses Denies: Hx Hearing Aid Opthamlomology History: Reports: Hx Contacts or Glasses Neurological History: Reports: Hx Dementia, Other Neuro Impairments/Disorders - Hx of stroke Psychiatric History: Denies: Hx Panic Disorder - Cancer History Cancer Type, Location and Year: PROSTATE, LIVER LESION 2 YRS AGO Hx Chemotherapy: Yes Hx Radiation Therapy: Yes - Surgical History Surgery Procedure, Year, and Place: LOW BACK SURGERY(DISC) 1960'S; PROSTATECTOMY (CANCER) 20-25 YRS AGO; CATARACTS BILATERAL Infectious Disease History: No Infectious Disease History: Reports: Hx Hepatitis Denies: Traveled Outside the [place] in Last 30 Days - Family History Known Family History: Negative: Blood Disorder - Social History Alcohol Use: None Hx Substance Use: No Substance Use Type: Reports: None Hx Tobacco Use: No Smoking Status (MU): Never Smoked Tobacco Review of Systems Positive: Fever Positive: Cough Neurological: Other - different ambulation All Other Systems Reviewed And Are Negative: Yes Physical Exam - Summary Physical Exam Summary: VITAL SIGNS: Reviewed. GENERAL: Patient is a well-developed and nourished male who is lying comfortable in the stretcher. Patient is not in any acute respiratory distress. HEAD AND FACE: No signs of trauma. No ecchymosis, hematomas or skull depressions. No sinus tenderness. EYES: PERRLA, EOMI x 2, No injected conjunctiva, no nystagmus. EARS: Hearing grossly intact. Ear canals and tympanic membranes are within normal limits. MOUTH: Oropharynx within normal limits. NECK: Supple, trachea is midline, no adenopathy, no JVD, no carotid bruit, no c- spine tenderness, neck with full ROM. CHEST: Symmetric, no tenderness at palpation LUNGS: Clear to auscultation bilaterally. No wheezing or crackles. CVS: Regular rate and rhythm, S1 and S2 present, no murmurs or gallops appreciated. ABDOMEN: Soft, non-tender. No signs of distention. No rebound no guarding, and no masses palpated. Bowel sounds are normal. EXTREMITIES: FROM in all major joints, no edema, no cyanosis or clubbing. NEURO: Alert and oriented x 3. No acute neurological deficits. Speech is normal and follows commands. GCS 15, NIH 0 SKIN: Dry and warm Triage Information Reviewed: Yes Vital Signs On Initial Exam: Initial Vitals Resp 24 12/30/17 19:20 Vital Signs Reviewed: Yes Diagnostics - Vital Signs Vital Signs Temp Pulse Resp BP Pulse Ox 12/30/17 19:30 99.9 F 87 18 133/70 97 12/30/17 19:21 85 26 133/70 96 12/30/17 19:20 24 - Laboratory Result Diagrams: 10/14/18 20:24 12/30/17 20:24 Lab Statement: Any lab studies that have been ordered have been reviewed, and results considered in the medical decision making process. - Radiology CXR Xray Interpretation: No Acute Changes Radiology Interpretation Completed By: ED Physician - no acute process, pending official report - CT brain ct CT Interpretation: No Acute Changes CT Interpretation Completed By: Radiologist - no acute intracranial abnormality , age-related atrophy and mild chronic small vessel ischemic disease. This report was reviewed by ed physician. - Ultrasound No standard instances Ultrasound Interpretation: Positive (See Comments) Ultrasound Interpretation Completed By: Radiologist - gallbladder US showed cholelithiasis without cholecystitis. This report was reviewed by ed physician. - EKG 2006 Cardiac Rate: NL - rate of 83 bpm EKG Rhythm: Sinus Rhythm EKG Interpretation: Normal axis. Normal interval. No ischemic changes. NIH Scale - NIH Scale Level of Consciousness: Alert/Keenly Responsive Ask Patient the Month and His/Her Age: Both Correct Ask Pt to Open/Close Eyes and Sprinkler Driver/Release Non-Paretic Hand: Both Correctly Best Gaze (Only Horizontal Eye Movement): Normal Visual Field Testing: No Visual Loss Facial Paresis-Pt to Smile & Close Eyes or Grimace Symmetry: Normal/Symmetrical Motor Function - Right Arm: No Drift-Holds 10 Seconds Motor Function - Left Arm: No Drift-Holds 10 Seconds Motor Function - Right Leg: No Drift-Holds 10 Seconds Motor Function - Left Leg: No Drift-Holds 10 Seconds Limb Ataxia-Must be out of Proportion to Weakness Present: Absent Sensory (Use Pinprick to Test Arms/Legs/Trunk/Face): Normal Best Language (Describe Picture, Name Items): No Aphasia Dysarthria (Read Several Words): Normal Extinction and Inattention: No Abnormality Total Score: 0 Re-Evaluation - Re-Evaluation First Eval Re-Evaluation Time: 21:20 Comment: Informed patient of high liver enzymes, gallbladder US will be done. Second Eval Re-Evaluation Time: 23:22 Comment: daughter notes father has "unknown type" of hepatitis for years, is being seen at [place] for this. Admission discussed, patient and daughter are agreeable. Course/Dx - Course Assessment/Plan: Patient is a 82 y/o M BIBA w/ c/o neurological deficit onsetting sometime after last night. Patient's daughter reports that patient has different ambulation, being more hunched over than normal. She also notes that patient has a fever and a cough. Patient was first observed to have different ambulation at 1100 today, last known well was last night as reported by staff at [place], where patient resides. Sx are reported to have progressively worsened throughout the day. Patient states "I think I'm fine." Daughter reports patient had a stroke this past October w/ similar Sx. Physical exam showed patient is alert and oriented x 3. No acute neurological deficits. Speech is normal and follows commands. GCS 15, NIH 0. During ED course, patient was given fluids and IV antibiotics, Tylenol tab 975 mg PO ONCE. Labs showed CRP 10.56, trop .01, Alk Phos 138, AST 399, AST 255, lactic acid 1.0, glucose 248, BNP 57, WBC 4.6. Brain CT showed no acute intracranial abnormality, age- related atrophy and mild chronic small vessel ischemic disease. EKG showed sinus rhythm w/ rate of 83 BPM, Normal axis. Normal interval. No ischemic changes. Influenza A,B was negative. UA showed 1+ urine blood, trace RBC, squamous epith cells present, 1+ glucose, ascorbic acid is present. Gallbladder US shows cholelithiasis without cholecystitis. CXR showed no acute process. Patient's case was discussed with Dr. Winters at 0437, Dr. Winters accepts patient for admission. Dx of TIA and cholelithiasis. - Diagnoses Provider Diagnoses: TIA (transient ischemic attack), Cholelithiasis - Physician Notifications Discussed Care Of Patient With: Nirali Winters Time Discussed With Above Provider: 23:17 Instructed by Provider To: Other - Patient's case was discussed with Dr. Winters at 2317, Dr. Winters accepts patient for admission. Discharge - Sign-Out/Discharge Documenting (check all that apply): Patient Departure - admit - Discharge Plan Condition: Good Disposition: ADMITTED TO [facility] Referrals: Kevin Boggs MD [Primary Care Provider] - - Attestation Statements Document Initiated by Scribe: Yes Documenting Scribe: Miguel Aleman Provider For Whom Scribe is Documenting (Include Credential): Devorah Rubin MD Scribe Attestation: IMiguel , scribed for Devorah Rubin MD on 12/31/17 at 0037.
[2017-12-30] MEDS ORDERED: Piperacillin/Tazobac ADVAN(*) 3.375 GM in NS 0.9% 100 ML* 100 ML IVPB ONE (19:54)
[2017-12-30 20:40] LABS: ABS Basophils 0 10^3/ul (0-0.2); ABS Eosinophils 0 10^3/ul (0-0.6); ABS Lymphocytes 0.4 10^3/ul (1.0-4.8); ABS Monocytes 0.3 10^3/ul (0-0.8); ABS Neutrophils 3.9 10^3/ul (1.5-7.7); ABS Nucleated RBC 0 10^3/ul; Eosinophil % 0.9 % (0-6); Hematocrit 43 % (42-52); Hemoglobin 14.2 g/dl (14.0-18.0); Lymphocyte % 8.3 % (25-47); Mean Corpuscular HGB Conc 33 g/dl (31-36); Mean Corpuscular Hemoglobin 31 pg (27-31); Mean Corpuscular Volume 94 fL (80-94); Mean Platelet Volume 8.7 um3 (7.4-10.4); Nucleated Red Blood Cells % 0.1; Platelet Count 136 10^3/ul (150-450); Red Blood Count 4.61 10^6/ul (4.00-5.40); Red Cell Distribution Width 15 % (10.5-15); White Blood Count 4.6 10^3/ul (3.5-10.8)
[2017-12-30 20:49] LABS: INR 1.12 (0.77-1.02)
--- NOTE | 2017-12-30 20:55 | RAD ---
EXAM: CT Head Without Intravenous Contrast EXAM DATE/TIME: 12/30/2017 8:36 PM CLINICAL HISTORY: 82 years old, male; Signs and symptoms; Weakness, extremity TECHNIQUE: Axial computed tomography images of the head/brain without intravenous contrast. All CT scans at this facility use at least one of these dose optimization techniques: automated exposure control; mA and/or kV adjustment per patient size (includes targeted exams where dose is matched to clinical indication); or iterative reconstruction. COMPARISON: BRAIN WO CT BRAIN WO 10/16/2017 5:22 PM FINDINGS: Brain: Mild periventricular and subcortical low attenuation without adjacent mass effect. No acute ischemic changes, extra axial fluid collections, intraparenchymal hemorrhage, or midline shift. Ventricles: The ventricles and extraventricular CSF spaces are widened although symmetrically positioned along the midline. Bones/joints: Normal. No acute fracture. Sinuses: Normal as visualized. No acute sinusitis. Mastoid air cells: Normal as visualized. No mastoid effusion. Orbits: There is asymmetric density of the lenses consistent with intraocular lens prosthesis. Soft tissues: Normal. Vasculature: The vasculature demonstrates diffuse marked atherosclerotic calcification. IMPRESSION: 1. No acute intracranial abnormality. 2. Age-related atrophy and mild chronic small vessel ischemic disease. To contact [facility] with a general question: [facility] - [phone] For direct physician to physician contact: Physician Hotline - [phone] [facility] ([facility] Facility ID #[id number])
[2017-12-30 20:57] LABS: EGFR Non-African American 62.5 (>60)
[2017-12-30 23:15] LABS: Urine Appearance Clear; Urine Blood 1+ (Negative); Urine Color Yellow; Urine Ketones Negative (Negative); Urine Protein Negative (Negative); Urine Red Blood Cell Trace(0-2/hpf) (Absent); Urine Specific Gravity 1.017 (1.010-1.030); Urine Urobilinogen Negative (Negative); Urine White Blood Cell Absent (Absent)
--- NOTE | 2017-12-31 00:01 | RAD ---
EXAM: US Abdomen Limited, Right Upper Quadrant EXAM DATE/TIME: 12/30/2017 10:11 PM CLINICAL HISTORY: 82 years old, male; Pain; Abdominal pain; Additional info: Elevated lft's TECHNIQUE: Real-time ultrasound of the abdomen with image documentation. Examination was focused on the right upper quadrant. COMPARISON: No relevant prior studies available. FINDINGS: Liver: Normal liver echogenicity and size with no focal lesions. Normal hepatopetal portal vein flow. Gallbladder: Gallstone filled gallbladder. No wall thickening, pericholecystic fluid, or sonographic Marquez sign. Common bile duct: CBD measures 0.7 cm. Pancreas: Pancreatic head and body are visualized showing no ductal dilation or focal lesions. Tail is shadowed by overlying bowel gas. Right kidney: Right kidney measures 10.3 x 6.5 x 5.4 cm (189 cc). No solid cortical lesions, calculi, or pelvocaliectasis. IMPRESSION: Cholelithiasis without cholecystitis. To contact [facility] with a general question: [facility] - [phone] For direct physician to physician contact: Physician Hotline - [phone] [facility] ([facility] Facility ID #[id number])
[2017-12-31] MEDS ORDERED: Polyethylene Glycol 3350* 17 GM PACKET PO PRN (00:28)
[2017-12-31] MEDS ORDERED: Dextrose 50% Syringe 50 ML* 25 GM/50 ML SYRINGE IV PUSH PRN (00:48)
[2017-12-31] MEDS: NS 0.9% 1000 ML* 1,000 ML IV SCH ×2 (01:22→18:03)
--- NOTE | 2017-12-31 02:35 | HP ---
CC: Kevin Boggs MD HISTORY AND PHYSICAL: DATE OF ADMISSION: 12/31/17 TIME OF EVALUATION: Midnight. PRIMARY CARE PROVIDER: Kevin Boggs MD CHIEF COMPLAINT: "He was not walking right" as per daughter. HISTORY OF PRESENT ILLNESS: Mr. Frank is an 82-year-old male with a past medical history of type 2 diabetes, prostate CA, advanced dementia, history of DVT, hypothyroidism, recent admission to [facility] in October for a right pontine CVA, hepatitis, who is brought into the emergency room due to gait abno rmality. The patient was admitted to [facility] in early October 2017 with left hemiparesis. He had an MRI that showe d a right pontine CVA and as per daughter, he had progressive improvement of his gait and was actuall y ambulating without any devices. Today, her daughter went to pick him up around 11 and they noticed that he was weaker but couple hours later it was much worse. She has videos in her cellphone showin g that he was having a very hard time getting up from a chair even with help. She also has a lot of video showing his gait pattern where his walking hunched forward and he appears to have some weakness on the left. She brought the patient back to the [facility] and when he arrived there, once of the caretakers notice d that this gait was very unusual for him and recommended the patient return to the hospital for furt her evaluation. The patient's daughter also described 1 episode of fever 101 today, but no other complaints. No ches t pain, palpitations, shortness of breath, cough, urinary nausea, vomiting or diarrhea. By the time the patient arrived to the emergency room and was evaluated by the ED provider, his gait was back to normal. When the patient was discharged from [facility] on 10/24/17, he was not discharged on a statin due to his li inder disease, but he followed up with his primary care provider (Dr. Boggs) and on 11/05/17, decision w as made to start him on rosuvastatin 5 mg, so the statin is a new medication for him. PAST MEDICAL HISTORY: 1. Type 2 diabetes. 2. Prostate cancer. 3. Advanced dementia. 4. History of DVT. 5. Hypothyroidism. 6. Hepatitis. As per daughter, he was diagnosed while in [place] and it was not a viral hepatitis, bu t it was severe. He had to be flown over to the [facility] and she does not know the type of hepati tis, but he is on CellCept so I suspect he probably had autoimmune hepatitis. The patient follows up with Dr. Martinez in [place]. 7. Hepatocellular carcinoma. 8. History of PE. MEDICATION LIST: 1. Acetaminophen 325 mg p.o. q.4 hours p.r.n. pain or fever. 2. Eliquis 5 mg p.o. b.i.d. 3. Calcium plus vitamin D 1 tablet p.o. daily. 4. Vitamin D 2000 units p.o. daily. 5. Citalopram 10 mg p.o. daily. 6. Donepezil 5 mg p.o. at bedtime. 7. Glimepiride 1 mg p.o. b.i.d. 8. Levothyroxine 100 mcg p.o. daily. 9. Melatonin 10 mg p.o. daily. 10. MiraLAX 1 packet p.o. daily as needed for constipation. 11. CellCept 1000 mg p.o. b.i.d. 12. Rosuvastatin 5 mg p.o. daily. ALLERGIES: No known drug allergies. 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 No history of tobacco, alcohol or drug use. S urrogate decision maker is his , Maia Frank and daughter, Marylou Frank, phone numb er is [phone] or [phone]. FAMILY HISTORY: Mother had a history of dementia and father had a heart attack. REVIEW OF SYSTEMS: A 14-point review of systems was performed and all the pertinent negative and pos itive findings are in the HPI. PHYSICAL EXAMINATION GENERAL: The patient is a pleasantly confused elderly, gentleman, lying in the ED stretcher, in no a cute distress. VITAL SIGNS: Temperature 99.5, heart rate is 68, respiratory rate is 22, oxygen saturation 95% on ro om air, blood pressure is 98/84. HEENT: Pupils are equal. Moist mucous membranes. CHEST: Breath sounds present bilaterally with no added sounds. CVS: Normal S1, S2. Regular rate and rhythm. ABDOMEN: Soft. Bowel sounds are present. EXTREMITIES: No edema. NEUROLOGIC: He is alert and oriented x2, self and place, able to move all 4 extremities. At this po int, there is no left hemiparesis. LABORATORY AND IMAGING DATA: The patient had a CBC that showed a WBC of 4.6, hemoglobin of 14.2, he matocrit of 43, platelets of 136 with 83% neutrophils. INR is 1.1. Chemistry showed a sodium of 131 , potassium 4.2, chloride of 102, bicarb of 23, BUN of 22, creatinine of 1.1, glucose of 248, lactic acid of 1, calcium of 8.2. LFTs showed a total bilirubin of 0.9, AST of 255, ALT of 399, alk phos of 138. Troponin of 0.01. CRP of 10. BNP 57. Urinalysis showed 1+ blood, squamous epithelial cells. Rapid flu test was negative. Chest x-ray showed right hemidiaphragm elevation and this is unchanged when compared to his prior EKG from October. He also has old rib fractures on the right, but I do not see acute pulmonary disease. CT of the brain showed no acute intracranial abnormality, only age related atrophy and mild chronic s mall vessel ischemic disease. EKG done on 12/30/17 at 1955 showed sinus rhythm at 83 beats per minute with no ST- T changes. No si gnificant change when compared to his prior EKG from September 2017. Gallbladder ultrasound showed cholelithiasis without cholecystitis. CBD measured 0.7 cm. There is n o wall thickening, pericholecystic fluid or sonographic Marquez's sign. ASSESSMENT AND PLAN: Mr. Frank is an 82-year-old male with a past medical history of autoimmune hepatitis type 2 diabetes, prostate carcinoma, liver carcinoma, dementia, history of pulmonary emboli sm/deep venous thrombosis, hypothyroidism, who presented to the emergency room with fever and gait ab normality. 1. Gait abnormality. The patient's daughter states that the gait abnormality is similar to what he had when he had his stroke in October, but it had improved over time. I suspect the patient may have had a TIA as his gait abnormality has resolved at this time or he may have an infection making his ne urological deficits more pronounced at this time. He will be admitted as observation to the telemetr y floor. We are going to check an MRI in the morning and consult Neurology, but he just had a recent workup done in October. He will be monitored with neurological checks. I am going to request PT/OT evaluation. 2. Fever. Source is unclear at this time. He was afebrile in the emergency room. He has no leukocy tosis. Urinalysis is normal. Chest x-ray is negative as well as influenza rapid test. This may be a viral infection. At this point, he is going to receive IV hydration and we are going to monitor fo r the signs of infection. He received the dose of Zosyn in the emergency room, but I do not think fu ll antibiotics are indicated at this time. 3. Transaminitis. The patient has a history of autoimmune hepatitis and has had normal LFTs. When he was discharged in October, he was not prescribed statin, but later on he was followed by [place] care provider and started on rosuvastatin 5 mg. I am going to hold this medication for now and rep eat his LFTs in the morning. If they continue to trend up, we may have to contact Dr. Martinez at [facility]. 4. Type 2 diabetes. The patient will have fingersticks monitored and we are going to cover with the lispro sliding scale. 5. Hypothyroidism. We will continue levothyroxine. 6. Dementia. Continue supportive care. Continue citalopram and donepezil. 7. DVT prophylaxis: The patient has a score of 5 and the patient is already anticoagulated with Holly rustam. 8. Code status is full. TIME SPENT: Approximately 50 minutes were spent with the patient in interview, medical records revie w, physical examination to complete this admission; more than half this time was spent [id number] w ith patient in coordination of care. [id number]/[facility] #: [id number]
[2017-12-31] MEDS: Acetaminophen TAB* 325 MG PO PRN ×2 (03:20→21:09)
[2017-12-31] MEDS: Levothyroxine TAB* 100 MCG TAB PO SCH (06:21)
[2017-12-31 06:59] LABS: EGFR Non-African American 73.7 (>60)
--- NOTE | 2017-12-31 07:34 | RAD ---
HISTORY: fever COMPARISONS: October 18, 2017 VIEWS: 1: frontal AP view of the chest at 8:05 PM FINDINGS: LINES AND TUBES: None. CARDIOMEDIASTINAL SILHOUETTE: The cardiomediastinal silhouette is normal for portable technique. PLEURA: The costophrenic angles are sharp. No pleural abnormalities are noted. LUNG PARENCHYMA: The lungs are clear. ABDOMEN: The upper abdomen is clear. There is no subphrenic gas. BONES AND SOFT TISSUES: There are remote post traumatic changes to the right hemithorax IMPRESSION: NO ACTIVE CARDIOPULMONARY DISEASE. R0
[2017-12-31] MEDS ORDERED: Melatonin 3 MG TAB PO SCH ×2 (09:00→21:00)
[2017-12-31] MEDS: Apixaban* 5 MG TAB PO SCH ×2 (09:27→21:09)
[2017-12-31] MEDS: Cholecalciferol TAB* 1000 UNITS PO SCH (09:29)
[2017-12-31] MEDS: Citalopram TAB* 10 MG PO SCH (09:29)
[2017-12-31] MEDS: Mycophenolate Mofetil TAB(*) 500 MG PO SCH ×2 (09:32→21:09)
[2017-12-31] MEDS: Insulin LISPRO* 1 UNITS UNIT SUBCUT SCH ×4 (09:35→21:22)
--- NOTE | 2017-12-31 15:23 | CONS ---
NEUROLOGY CONSULTATION: DATE OF CONSULTATION: 12/31/17 LOCATION: He is in inpatient room 449. REFERRING PROVIDER: Nirlai Ortega MD CHIEF COMPLAINT: Weakness, worsened gait. 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 He was found to have a right a pontine small vessel infarction. He did make a pretty good recovery and was able to be discharged ultimately back to [facility]. He was able to walk according to his daughter who is present today, but often needed a walker. He seemed to be more lethargic than usual yesterday as they were getting ready to take him out for dinner. She showed me a video of him try to get out of a chair and took him quite a while and he walked quite slowly. His left leg seemed to move and not as well as his right, but he is ended up ambulating independently. He ultimately was brought back to [facility] and the staff there called 911. He was brought into the emergency room and according to admission note, his gait was back to his a new normal. He was admitted for reevaluation. He had a CT scan of the brain, which is interpreted as showing no acute intracranial abnormality and age-related atrophy and mild chronic small vessel ischemic changes. I reviewed the images and there is clearly the right pontine infarction, which now looks old. He is on Eliquis chronically for, I believe, a deep vein thrombosis. He has a history of Alzheimer's disease, prior pontine stroke, chronic autoimmune liver disease, liver carcinoma treated with radiation in the past. He follows with a liver specialist at the [facility], where he used to reside. PAST MEDICAL HISTORY: Notable for deep vein thrombosis, hypothyroidism, pulmonary embolus, some type of apparently autoimmune hepatitis, prostate cancer , type 2 diabetes. MEDICATIONS AT HOME: Consist of: 1. Eliquis 5 mg p.o. b.i.d. 2. Vitamin D 2000 units p.o. daily. 3. Citalopram 10 mg p.o. daily. 4. Donepezil 5 mg p.o. q. h.s. 5. Glimepiride 1 mg p.o. b.i.d. 6. Levothyroxine 100 mcg p.o. daily. 7. Melatonin 10 mg p.o. q.h.s. 8. MiraLAX. 9. CellCept 1000 mg p.o. b.i.d. 10. Rosuvastatin 5 mg p.o. daily. ALLERGIES: He is listed he is not having any drug allergies. REVIEW OF SYSTEMS: Currently from the patient is somewhat suspect, but he denies ongoing intestinal problems. His daughter notes that he had been itching his skin a lot lately, but he denies a pruritus currently. He reportedly had a temperature of 101 in the ambulance, but he has been afebrile since he arrived in the emergency room. PHYSICAL EXAMINATION: He is a reasonably well hydrated, but appears somewhat chronically ill. He has been afebrile since arrival in the hospital other than that temperature 99.9 when he first came in. Blood pressures have been steady between 90 to 100 systolic over about 50 diastolic, respiratory rate 16 and oxygen saturation is 95% on room air. Heart is in a regular rhythm without murmurs. No cervical bruits. There is no scleral icterus. Pupils react from 3 to 2 mm. Eye movements are full. Facial musculature is notable for flattening of the left nasolabial fold. Tongue protrudes in the midline and palate rises symmetrically. He is hard of hearing. Speech is soft, but clear. On motor exam, he actually has excellent strength proximally and distally in upper and lower extremities. There is some paratonia in the legs. Finger taps are slow in the left hand. There is no myoclonus or asterixis. He is disoriented to place and time. He answers simple questions with straightforward answers. He is not able to provide any meaningful recent history. LABORATORY DATA: Includes a CT of the brain described above. Chemistry is notable for elevated AST at 164, it was 255 when he came in yesterday. When he was here in October, it was normal at 28. ALT is 289 this morning, it was 399 when he came in and again was normal back in October. CRP elevated at 10.65, the rest of the chemistry profiles are unremarkable. A CBC on admission notable for platelet count of 136,000 and otherwise is unremarkable CBC. He does have low lymphocyte count at 0.4, absolute lymphs. His INR is elevated at 1.12 yesterday, PTT normal at 32.3. Urinalysis notable for 1+ glucose, 1+ blood , otherwise unremarkable urinalysis. White blood cells are absent. Gallbladder ultrasound from yesterday reveals cholelithiasis without cholecystitis. IMPRESSION: Worsened weakness in the setting of apparently, worsened liver function. It is possibly he had a new cerebrovascular accident, but it is also a possible that he just had worsened weakness and exaggeration of his prior neurological deficits in the setting of metabolic disturbance. An MRI of the brain is pending. He will continue on Eliquis for now. An ammonia level has been ordered and is pending. If the MRI of the brain does not reveal a new infarction, I am not sure he need to repeat angiograms of his brain and neck, as he just had them on 10/18/17. There was some atheromatous disease, but no actionable cervical carotid disease. He has already on Eliquis. Our service will continue to follow him along with you. [id number]/[facility] #: [id number] HERNANDEZ
--- NOTE | 2017-12-31 15:51 | RAD ---
HISTORY: Possible CVA COMPARISONS: Head CT dated December 30, 2017 TECHNIQUE: The following sequences were obtained of the head: Sagittal T1-weighted images, axial T2-weighted images, axial FLAIR images, axial susceptibility weighted images, axial T1-weighted images. Additionally, axial diffusion-weighted images were obtained with calculated apparent diffusion coefficients. FINDINGS: HEMORRHAGE/INFARCT: There is no hemorrhage or acute infarct. MASSES/SHIFT: There is no mass or shift. EXTRA-AXIAL SPACES/MENINGES: There are no extra-axial fluid collections. SULCI AND VENTRICLES: There is diffuse and proportional enlargement of the sulci and ventricles. There is disproportionate enlargement of the lateral ventricles bilaterally. There is disproportionate enlargement of the parieto-occipital sulcus. CEREBRUM: There is minimal, elevated T2/FLAIR signal within periventricular white matter. As noted above, there is disproportionate volume loss involving the mesial temporal lobes. BRAINSTEM: There is a chronic appearing infarct of the right vijay. CEREBELLUM: There are no focal parenchymal abnormalities. The cerebellar tonsils are normal in size and position. SELLA: The sella is normal. PINEAL: The pineal region is clear. CP ANGLE/TEMPORAL BONES: The labyrinthine structures are grossly normal. VESSELS: Normal flow-voids are noted within the visualized vertebral vasculature. DIFFUSION ABNORMALITIES: There are no diffusion abnormalities. PARANASAL SINUSES/MASTOIDS: The paranasal sinuses are clear. ORBITS: The orbits are unremarkable. BONES AND SOFT TISSUE: No bone or soft tissue abnormalities are noted. OTHER: None IMPRESSION: 1. NO RESTRICTED DIFFUSION TO SUGGEST ACUTE INFARCT. 2. DIFFUSE INVOLUTIONAL CHANGE WITH DISPROPORTIONATE VOLUME LOSS INVOLVING THE MESIAL TEMPORAL LOBES ON THE PRECUNEUS. THIS IS NONSPECIFIC, BUT CAN BE ASSOCIATED WITH CERTAIN TYPES OF DEMENTIA IN THE CORRECT CLINICAL SETTING, INCLUDING ALZHEIMER'S DEMENTIA. 3. CHRONIC INFARCT OF THE RIGHT VIJAY.
--- NOTE | 2017-12-31 19:12 | PN ---
Subjective Date of Service: 12/31/17 Interval History: confused, pulling at IV's and quality assurance monitor body. denies chest pain or shortness of breath. Denies abd pain n/v/d. denies fever or chills. Family History: Unchanged from Admission Social History: Unchanged from Admission Past Medical History: Unchanged from Admission Objective Active Medications: Acetaminophen (Tylenol Tab*) 325 mg PO Q4H PRN PRN Reason: PAIN Last Admin: 12/31/17 03:20 Dose: 325 mg Apixaban (Eliquis*) 5 mg PO BID [facility] Last Admin: 12/31/17 09:27 Dose: 5 mg Cholecalciferol (Vitamin D Tab*) 2,000 units PO DAILY [facility] Last Admin: 12/31/17 09:29 Dose: 2,000 units Citalopram Hydrobromide (Celexa Tab*) 10 mg PO DAILY [facility] Last Admin: 12/31/17 09:29 Dose: 10 mg Dextrose (D50w Syringe 50 Ml*) 12.5 gm IV PUSH .FOR FS < 60 - SS PRN PRN Reason: FS < 60 Donepezil HCl (Aricept Tab*) 5 mg PO BEDTIME [facility] Sodium Chloride (Ns 0.9% 1000 Ml*) 1,000 mls @ 75 mls/hr IV PER RATE [facility] Last Admin: 12/31/17 01:22 Dose: 75 mls/hr Insulin Human Lispro (Humalog*) 0 units SUBCUT ACHS [facility]; Protocol Last Admin: 12/31/17 17:23 Dose: 1 units Levothyroxine Sodium (Synthroid Tab*) 100 mcg PO DAILY@0600 [facility] Last Admin: 12/31/17 06:21 Dose: 100 mcg Melatonin (Melatonin) 9 mg PO BEDTIME [facility] Mycophenolate Mofetil (Cellcept Tab(*)) 1,000 mg PO BID [facility] Last Admin: 12/31/17 09:32 Dose: 1,000 mg Polyethylene Glycol/Electrolytes (Miralax*) 17 gm PO DAILY PRN PRN Reason: CONSTIPATION Vital Signs - 8 hr 12/31/17 12:16 Temperature 98.1 F Pulse Rate 63 Respiratory 18 Rate Blood Pressure 129/65 (mmHg) O2 Sat by Pulse 100 Oximetry Oxygen Devices in Use Now: Nasal Cannula Appearance: appears comfortable sitting in the chair. confused to place and time Eyes: No Scleral Icterus Ears/Nose/Mouth/Throat: Clear Oropharnyx, Mucous Membranes Moist Neck: NL Appearance and Movements; NL JVP, Trachea Midline Respiratory: Symmetrical Chest Expansion and Respiratory Effort, Clear to Auscultation Cardiovascular: NL Sounds; No Murmurs; No JVD, No Edema Abdominal: NL Sounds; No Tenderness; No Distention Extremities: No Edema, No Clubbing, Cyanosis Skin: No Rash or Ulcers, No Nodules or Sclerosis Neurological: - - oriented to self and date, confused to place and time Nutrition: Taking PO's Result Diagrams: 12/30/17 20:24 12/31/17 06:31 Microbiology and Other Data: Microbiology 12/30/17 21:15 Influenza Types A,B Antigen - Final Nasopharyngeal Specimen received for Influenza A/B Molecular testing Assess/Plan/Problems-Billing Assessment: Mr. Frank is a 82 y.o male with a past medical hx dementia, Right tacho's CVA , autoimmune hepatitis, hypothyroid, DM who presented to the ER with increased confusion and weakness. - Patient Problems (1) Altered mental status Current Visit: Yes Status: Acute Code(s): R41.82 - ALTERED MENTAL STATUS, UNSPECIFIED SNOMED Code(s): 305930271 Comment: Unknown etiology - will check ammonia level in the AM - will repeat lab work cbc,cmp - cxr NAD, - MRI - NO acute infarct , chronic right florinda infarct. - UA - WNL (2) Dementia Current Visit: No Status: Acute Code(s): F03.90 - UNSPECIFIED DEMENTIA WITHOUT BEHAVIORAL DISTURBANCE SNOMED Code(s): 98351260 Comment: - Continue aricept and supportive care. (3) Diabetes Current Visit: No Status: Acute Code(s): E11.9 - TYPE 2 DIABETES MELLITUS WITHOUT COMPLICATIONS SNOMED Code(s): 27581863 Comment: - BG 87-198 - Continue lispro SSI coverage. Hold glimepiride until DC (4) Hypothyroid Current Visit: No Status: Acute Code(s): E03.9 - HYPOTHYROIDISM, UNSPECIFIED SNOMED Code(s): 15030342 Comment: - Continue levothyroxine. (5) Right pontine CVA Current Visit: No Status: Acute Code(s): I63.50 - CEREB INFRC DUE TO UNSP OCCLS OR STENOS OF UNSP CEREB ARTERY SNOMED Code(s): 546545934 Comment: History of Right Pontine CVA- no change on MRI today - Continue eliquis - Continue PT/OT - statin started as outpatient - will resume everyother day- patient owith elevated LFT's - (6) DVT prophylaxis Current Visit: No Status: Acute Code(s): OYV2051 - SNOMED Code(s): 077410580 Comment: - Patient with hx of DVT. - Continue eliquis. (7) Full code status Current Visit: No Status: Acute Code(s): Z78.9 - OTHER SPECIFIED HEALTH STATUS SNOMED Code(s): 495689519 Comment: Status and Disposition: inpatient - may need rehab at discharge
[2017-12-31] MEDS ORDERED: Donepezil TAB* 5 MG PO SCH (21:00)
[2018-01-01] MEDS: Levothyroxine TAB* 100 MCG TAB PO SCH (05:41)
[2018-01-01 06:56] LABS: ABS Basophils 0.1 10^3/ul (0-0.2); ABS Eosinophils 0.2 10^3/ul (0-0.6); ABS Lymphocytes 1.2 10^3/ul (1.0-4.8); ABS Monocytes 0.9 10^3/ul (0-0.8); ABS Nucleated RBC 0 10^3/ul; Eosinophil % 3.3 % (0-6); Hematocrit 44 % (42-52); Hemoglobin 14.9 g/dl (14.0-18.0); Lymphocyte % 18.7 % (25-47); Mean Corpuscular HGB Conc 34 g/dl (31-36); Mean Corpuscular Hemoglobin 31 pg (27-31); Mean Corpuscular Volume 93 fL (80-94); Mean Platelet Volume 9.2 um3 (7.4-10.4); Nucleated Red Blood Cells % 0.1; Platelet Count 138 10^3/ul (150-450); Red Blood Count 4.76 10^6/ul (4.00-5.40); Red Cell Distribution Width 15 % (10.5-15); White Blood Count 6.3 10^3/ul (3.5-10.8)
[2018-01-01 06:59] LABS: EGFR Non-African American 85.9 (>60)
[2018-01-01] MEDS: Insulin LISPRO* 1 UNITS UNIT SUBCUT SCH ×2 (08:15→12:24)
[2018-01-01] MEDS: Citalopram TAB* 10 MG PO SCH (09:12)
[2018-01-01] MEDS: Cholecalciferol TAB* 1000 UNITS PO SCH (09:13)
[2018-01-01] MEDS: Apixaban* 5 MG TAB PO SCH (09:13)
[2018-01-01] MEDS: Mycophenolate Mofetil TAB(*) 500 MG PO SCH (09:16)
[2018-01-01 14:35] VITALS: BP 99/58
--- NOTE | 2018-01-01 16:12 | PN ---
Subjective Date of Service: 01/01/18 Interval History: Patient remains confused at baseline per family, ate breakfast. No complaints . Denies chest pain or shortness of breath. Denies abd pain, n/v/d. Family History: Unchanged from Admission Social History: Unchanged from Admission Past Medical History: Unchanged from Admission Objective Vital Signs - 8 hr 01/01/18 14:17 Temperature 98.0 F Pulse Rate 70 Respiratory 18 Rate Blood Pressure 99/58 (mmHg) O2 Sat by Pulse 93 Oximetry Oxygen Devices in Use Now: Nasal Cannula Eyes: No Scleral Icterus Ears/Nose/Mouth/Throat: NL Teeth, Lips, Gums, Mucous Membranes Moist Neck: NL Appearance and Movements; NL JVP, Trachea Midline Respiratory: Symmetrical Chest Expansion and Respiratory Effort Cardiovascular: NL Sounds; No Murmurs; No JVD, No Edema Abdominal: NL Sounds; No Tenderness; No Distention Extremities: No Edema, No Clubbing, Cyanosis Skin: No Rash or Ulcers Neurological: - - confused, oriented to name and birthday, confused to place and time - baseline for patient Nutrition: Taking PO's Result Diagrams: 01/01/18 06:35 01/01/18 06:35 Microbiology and Other Data: Microbiology 12/30/17 21:15 Influenza Types A,B Antigen - Final Nasopharyngeal Specimen received for Influenza A/B Molecular testing Assess/Plan/Problems-Billing Assessment: Mr. Frank is a 82 y.o male with a past medical hx dementia, Right tacho's CVA , autoimmune hepatitis, hypothyroid, DM who presented to the ER with increased confusion and weakness. - Patient Problems (1) Altered mental status Status: Acute Code(s): R41.82 - ALTERED MENTAL STATUS, UNSPECIFIED SNOMED Code(s): 797342864 Comment: suspect this is related to dehydration and hypotension - ammonia level 40 - cxr NAD, - MRI - NO acute infarct , chronic right florinda infarct. - UA - WNL (2) Dementia Status: Acute Code(s): F03.90 - UNSPECIFIED DEMENTIA WITHOUT BEHAVIORAL DISTURBANCE SNOMED Code(s): 22644539 Comment: - Continue aricept and supportive care. (3) Diabetes Status: Acute Code(s): E11.9 - TYPE 2 DIABETES MELLITUS WITHOUT COMPLICATIONS SNOMED Code(s): 49493068 Comment: - BG 83-265 - Continue lispro SSI coverage. - should have oral diabetic medications evaluated as outpatient - will stop glimepiride for now (4) Hypothyroid Status: Acute Code(s): E03.9 - HYPOTHYROIDISM, UNSPECIFIED SNOMED Code(s): 09391597 Comment: - Continue levothyroxine. (5) Right pontine CVA Status: Acute Code(s): I63.50 - CEREB INFRC DUE TO UNSP OCCLS OR STENOS OF UNSP CEREB ARTERY SNOMED Code(s): 313202115 Comment: History of Right Pontine CVA- no change on MRI today - Continue eliquis - Continue PT/OT - statin started as outpatient - will resume every other day- patient with elevated LFT's - (6) Elevated LFTs Status: Acute Code(s): R94.5 - ABNORMAL RESULTS OF LIVER FUNCTION STUDIES SNOMED Code(s): 258507571 Comment: improving - suspect this could be related to hypotension/ dehydration which could of caused hypoprofusion to the liver - could also be related to statin therapy - will change statin to every other day - patient does also have a hx of auto immune hepatitis - who is followed by Dr. Devine at [facility] (7) DVT prophylaxis Status: Acute Code(s): QWX9263 - SNOMED Code(s): 753772179 Comment: - Patient with hx of DVT. - Continue eliquis. (8) Full code status Status: Acute Code(s): Z78.9 - OTHER SPECIFIED HEALTH STATUS SNOMED Code(s) : 081340228 Comment: Status and Disposition: discharge
--- NOTE | 2018-01-02 13:45 | DS ---
DISCHARGE SUMMARY: DATE OF ADMISSION: 12/31/17 DATE OF DISCHARGE: 01/01/18 ATTENDING PHYSICIAN WHILE IN THE HOSPITAL: Dr. Ruthann Costa * (dictated by Cherise Trinh NP) PRIMARY CARE PROVIDER: Kevin Boggs MD PRIMARY DIAGNOSES: 1. Dehydration. 2. Weakness. SECONDARY DIAGNOSES: 1. Type 2 diabetes. 2. Prostate cancer. 3. Advanced dementia. 4. History of DVT. 5. Hypothyroidism. 6. Hepatitis. 7. Hepatocellular carcinoma. 8. History of PE. STUDIES COMPLETED WHILE IN THE HOSPITAL: He had a chest x-ray on 12/30/17, radiologist's impression: No active cardiopulmonary disease. He had a CT of the brain on 12/30/17, radiologist's impression: No acute intracranial abnormality, age-related atrophy, and mild chronic small vessel ischemic disease. He had a gallbladder ultrasound on 12/30/17, cholelithiasis without cholecystitis. He had an MRI of the brain on 12/31/17, Radiologist's impression : No restricted diffusion to suggest acute infarct, diffuse involutional changes with disproportionate volume loss involving the mesial temporal lobes. This is nonspecific, but can be associated with certain types dementia in the correct clinical setting including Alzheimer's dementia, #3 chronic infarct of the right florinda. DISCHARGE MEDICATIONS: No new home medications. Discontinued home medications: 1. Glimepiride 1 mg p.o. b.i.d. Continued home medications: 1. Acetaminophen 325 mg p.o. q.4 hours as needed for fever. 2. Eliquis 5 mg p.o. b.i.d. 3. Calcium with vitamin D 1 tablet p.o. daily. 4. Vitamin D 2000 units p.o. daily. 5. Citalopram 10 mg p.o. daily. 6. Donepezil 5 mg p.o. at bedtime. 7. Levothyroxine 100 mcg p.o. daily. 8. Melatonin 10 mg p.o. daily. 9. MiraLax 1 tablet daily as needed for constipation. 10. CellCept 2000 mg p.o. b.i.d. 11. Rosuvastatin 5 mg p.o. every other day. HISTORY OF PRESENT ILLNESS/HOSPITAL COURSE: Mr. Frank is an 82-year-old male with a past medical history significant for type 2 diabetes, prostate cancer, advanced dementia, history of DVT, hypothyroid, recent admission to [facility] in October for right pontine CVA, hepatitis. He was brought to the emergency room due to gait abnormality. The patient was admitted in October for a right florinda CVA. His daughter reports that he has had progressive improvement in his gait and was actually ambulating without any devices. Today, the daughter went to pick her father up at [facility] and noticed that he was weaker, but a couple hours later was much worse. She brought the patient back to [facility] and when he arrived there, the caretakers noted that his gait was very unusual and recommended the patient return to the hospital for further evaluation. The patient was brought to the hospital. He was seen and evaluated in the emergency room. He had routine lab work drawn, which did show some elevation in his liver functions. His chest x-ray was within normal limits. His urine was within normal limits. He did have an ammonia level drawn during this hospitalization, which was also within normal limits. The patient did receive IV hydration throughout his hospitalization and his symptoms did improve. On the day of discharge, the reports the patient is at baseline. He continues to have some confusion, which per the is at his baseline. He is able to feed himself. He did have some increased confusion on the day of admission. He did have a repeat MRI, which did not show any acute infarct. He was seen in consultation by Neurology, who felt that this was not related to CVA or TIA and felt that this may be related to his elevation in liver functions , therefore an ammonia level was drawn as well. Liver functions improved throughout his hospitalization and his ammonia level was within normal limits. I suspect that his change mentation and weakness is related to dehydration and hypotension. As the patient was hypotensive on admission to the hospital, his blood pressure was in 89/41 to 98/84. During this hospitalization, there were no acute findings found and at this time he is stable to return to [facility]. Vital Signs: BP 131/76, temperature was 98.5, heart rate was 71 , respirations 18, O2 saturation was 94%. DISCHARGE PLAN: Mr. Frank will be discharged back to [facility], activity as tolerated. He would benefit from physical therapy for strength and gait mobility at [facility]. Diet: He should continue on a heart healthy diet. He did have a swallow evaluation while in the hospital and they recommended regular solids, thin liquids, straws okay, small sips and bites alternate with liquids and solids and he should sit up upright 30 minutes after eating. 1. Dehydration. I suspect that his weakness and change in mentation was related to mild hypotension and dehydration. The patient was given IV fluids throughout his hospitalization. His symptoms did improve. I would encourage that he drink at least 5 to 8 ounce glasses of water daily and stay hydrated. I would recommend avoiding teas and sodas as these can cause dehydration. 2. Elevated liver functions. The patient has a history of autoimmune hepatitis. He does have a followup with his liver specialist at [place] next week. He should keep this appointment. His liver functions did improve throughout his hospitalization, I suspect that this could be related to dehydration and hypotension and hypoperfusion to the liver causing the elevation and his liver enzymes. He was also started on Crestor prior to this admission. I have changed his Crestor to every other day. He should continue to have his liver functions monitored as this also could be the cause of elevation in his liver functions. 3. Dementia. He should continue on his home medications as previously prescribed. 4. Diabetes. His glimepiride was held during this hospitalization. His blood sugars were ranging from 84 to 265. I did stop his glimepiride, he should have this reevaluated by his primary care provider and restarted if deemed necessary. The patient should follow up with his primary care provider in 4 to 7 days. He should follow up with his liver specialist at [place] as previously scheduled next week. Lab work has been faxed to Dr. Vargas as requested by family. He should return to the emergency room for any profound weakness, chest pain, shortness of breath, syncopal episodes, or any other concerning symptoms. This is a summarization of his hospitalization. For further details, please obtain the entire medical record. TIME SPENT: Time spent on this discharge was approximately 60 minutes; greater than half that time was spent with patient discussing discharge plans and instructions. CONDITION ON DISCHARGE: Stable. CHERISE TRINH NP [id number]/[facility] #: [id number] HERNANDEZ
== END 2018-01-01 15:10 ==
LOC: ED 19:12 → MEDTELE 12-31 00:08
PROVIDERS: ADMIT Internal Medicine; ATTEND Internal Medicine
DX: E86.0 Dehydration (principal); R53.1 Weakness; E11.9 Type 2 diabetes mellitus without complications; C61 Malignant neoplasm of prostate; F03.90 Unspecified dementia, unspecified severity, without behavioral disturbance, psychotic disturbance, mood disturbance, and anxiety; Z86.718 Personal history of other venous thrombosis and embolism; E03.9 Hypothyroidism, unspecified; K75.9 Inflammatory liver disease, unspecified; C22.0 Liver cell carcinoma; Z86.711 Personal history of pulmonary embolism; R41.82 Altered mental status, unspecified; I63.50 Cerebral infarction due to unspecified occlusion or stenosis of unspecified cerebral artery; R94.5 Abnormal results of liver function studies; R50.9 Fever, unspecified; K80.20 Calculus of gallbladder without cholecystitis without obstruction
CPT/HCPCS: 36415; 70450; 70551; 71045; 76705; 80053; 81003; 81015; 82140; 83605; 83880; 84484; 85025; 85610; 85730; 86140; 87040; 93005; 96361; 96365; 96366; 99284; A9270-GY; G0378; G8978-GP-CJ; G8979-GP-CI; G8980-GP-CI; G8987-GO-CI; G8988-GO-CI; G8989-GO-CI; J2543

== ENCOUNTER 2018-05-01 09:59 | Inpatient (IN) | payer BC, MEDICARE ==
[2018-05-01] MEDS ORDERED: Insulin REGULAR(*) 1 UNITS UNIT IV ONE (10:03)
[2018-05-01 10:25] LABS: ABS Basophils 0 10^3/ul (0-0.2); ABS Eosinophils 0 10^3/ul (0-0.6); ABS Lymphocytes 0.8 10^3/ul (1.0-4.8); ABS Neutrophils 8.3 10^3/ul (1.5-7.7); ABS Nucleated RBC 0 10^3/ul; Eosinophil % 0 %; Hematocrit 44 % (42-52); Hemoglobin 14.2 g/dl (14.0-18.0); Mean Corpuscular HGB Conc 32 g/dl (31-36); Mean Corpuscular Hemoglobin 30 pg (27-31); Mean Corpuscular Volume 94 fL (80-94); Mean Platelet Volume 9.5 fL (7.4-10.4); Nucleated Red Blood Cells % 0; Platelet Count 119 10^3/ul (150-450); Red Blood Count 4.74 10^6/ul (4.00-5.40); Red Cell Distribution Width 15 % (10.5-15); White Blood Count 10.2 10^3/ul (3.5-10.8)
--- NOTE | 2018-05-01 10:26 | ED ---
HPI Diabetic - HPI Summary HPI Summary: Pt is an 82 y/o M presenting to the ED brought in by EMS for a high blood sugar. Per EMS, [place] reported a blood sugar in the 500s but EMS obtained a blood sugar over 600. The pt has a hx of dementia but has had reported increased confusion and incontinence, as well as a change in glimepiride about a week ago. He has had a previous CVA. - History Of Current Complaint Chief Complaint: EDDiabeticProb Time Seen by Provider: 05/01/18 10:02 Hx Obtained From: Patient, EMS Hx From Patient Unobtainable Due To: Dementia Onset/Duration: Sudden Onset, Lasting Minutes, Still Present Timing: Constant Severity Initially: Moderate Severity Currently: Moderate Character: Other - asleep Aggravating: Medication Change - glimepiride Alleviating: Nothing Related History: DM II - Allergies/Home Medications Allergies/Adverse Reactions: Allergies Allergy/AdvReac Type Severity Reaction Status Date / Time No Known Allergies Allergy Verified 05/01/18 11:29 PMH/Surg Hx/FS Hx/Imm Hx Previously Healthy: No Endocrine/Hematology History: Reports: Hx Diabetes - DM II Cardiovascular History: Reports: Hx Deep Vein Thrombosis Denies: Hx Hypertension, Hx Pacemaker/ICD Musculoskeletal History: Reports: Other Musculoskeletal History - left sided weakness this admission Sensory History: Reports: Hx Contacts or Glasses Denies: Hx Hearing Aid Opthamlomology History: Reports: Hx Contacts or Glasses Neurological History: Reports: Hx Dementia, Other Neuro Impairments/Disorders - Hx of stroke Psychiatric History: Denies: Hx Panic Disorder - Cancer History Cancer Type, Location and Year: PROSTATE, LIVER LESION 2 YRS AGO Hx Chemotherapy: Yes Hx Radiation Therapy: Yes - Surgical History Surgery Procedure, Year, and Place: LOW BACK SURGERY(DISC) 1959'S; PROSTATECTOMY (CANCER) 20-25 YRS AGO; CATARACTS BILATERAL Infectious Disease History: Unable to Obtain/Confirm Infectious Disease History: Reports: Hx Hepatitis Denies: Traveled Outside the [place] in Last 30 Days - Family History Known Family History: Negative: Blood Disorder Family History: L5 CAVEAT: FHx LIMITED DUE TO PT CONDITION, DEMENTIA - Social History Alcohol Use: unknown Hx Substance Use: No Substance Use Type: Reports: None Hx Tobacco Use: No Smoking Status (MU): Never Smoked Tobacco Review of Systems Negative: Fever Negative: Vomiting All Other Systems Reviewed And Are Negative: Yes Physical Exam - Summary Physical Exam Summary: Appearance: Very dehydrated appearing, sunken eyes, lying in bed comfortably Skin: Warm, dry, no obvious rash Eyes: sclera anicteric, no conjunctival pallor ENT: mucous membranes dry, pharynx appears normal Neck: Supple, nontender Respiratory: Clear to auscultation, no signs of respiratory distress Cardiovascular: Mild tachycardia. No murmurs. Symmetrical distal pulses in tibial and radial bilaterally. Abdomen: Soft, nontender, normal active bowel sounds present Musculoskeletal: Normal, Strength/ROM Intact Neurological: Oriented to persn only, awake and alert, mentation is normal, speech is fluent and appropriate Psychiatric: affect is normal, does not appear anxious or depressed Triage Information Reviewed: Yes Vital Signs On Initial Exam: Initial Vitals Temp Pulse Resp BP Pulse Ox 98.5 F 111 18 149/94 94 05/01/18 10:17 05/01/18 10:17 05/01/18 10:17 05/01/18 10:17 05/01/18 10:17 Vital Signs Reviewed: Yes Diagnostics - Vital Signs Vital Signs Temp Pulse Resp BP Pulse Ox 05/01/18 10:17 98.5 F 111 18 149/94 94 - Laboratory Result Diagrams: 05/06/18 05:29 05/06/18 05:29 Lab Statement: Any lab studies that have been ordered have been reviewed, and results considered in the medical decision making process. - EKG 1016 Cardiac Rate: Tachycardia - 110bpm EKG Rhythm: Sinus Tachycardia ST Segment: Normal Ectopy: None EKG Comparison: No Significant Change - from 12/30/17 Diabetic Course/Dx - Course Course Of Treatment: Pt is an 82 y/o M presenting to the ED brought in by EMS for a high blood sugar. Per EMS, [place] reported a blood sugar in the 500s but EMS obtained a blood sugar over 600. Dr. Costa will be the admitting physician for the pt. - Diagnoses Provider Diagnoses: Hyperosmolar hyperglycemic coma due to diabetes mellitus without ketoacidosis Discharge - Sign-Out/Discharge Documenting (check all that apply): Patient Departure - Discharge Plan Condition: Guarded Disposition: ADMITTED TO [facility] - Billing Disposition and Condition Condition: GUARDED Disposition: Admitted to [facility] - Attestation Statements Document Initiated by Scribe: Yes Documenting Scribe: Maddie Lepe Provider For Whom Scribe is Documenting (Include Credential): Tawanda Marie MD. Scribe Attestation: I, Maddie Lepe, scribed for Tawanda Marie MD. on 05/07/18 at 1634. Scribe Documentation Reviewed: Yes Provider Attestation: The documentation as recorded by the saludibe, Maddie Lepe accurately reflects the service I personally performed and the decisions made by me, Tawanda Marie MD. Status of Scribe Document: Viewed Consult Consult: 1115 - Spoke with Dr. Costa about the pt's present condition. She will be the admitting physician to [facility].
[2018-05-01] MEDS: NS 0.9% 1000 ML** 3,000 ML IV ONE ×2 (10:39→10:43)
[2018-05-01 10:54] LABS: Albumin 3.4 g/dL (3.2-5.2); Albumin/Globulin Ratio 0.9 (1-3); BUN/Creatinine Ratio 30.5 (8-20); EGFR African American 53.5 (>60); EGFR Non-African American 44.2 (>60); Globulin 3.9 g/dL (2-4); Potassium 4.2 mmol/L (3.5-5.0); Total Bilirubin 1.2 mg/dL (0.2-1.0); Total Protein 7.3 g/dL (6.4-8.9)
[2018-05-01 12:54] LABS: BUN/Creatinine Ratio 30.6 (8-20); Calcium 7.8 mg/dL (8.6-10.3); EGFR African American 69.1 (>60); EGFR Non-African American 57.1 (>60); Potassium 3.4 mmol/L (3.5-5.0)
[2018-05-01] MEDS ORDERED: Acetaminophen TAB* 325 MG PO PRN (13:04)
[2018-05-01] MEDS ORDERED: Dextrose 50% Syringe 50 ML* 25 GM/50 ML SYRINGE IV PUSH PRN (13:33)
[2018-05-01 13:36] LABS: C Reactive Protein 40.18 mg/L (<8.01)
[2018-05-01] MEDS ORDERED: NS 0.45% 1000 ML BAG* 1,000 ML IV SCH ×2 (14:00→18:48)
[2018-05-01] MEDS ORDERED: Insulin LISPRO* 1 UNITS UNIT SUBCUT SCH (14:00)
[2018-05-01 15:31] LABS: Urine Appearance Clear; Urine Bacteria Absent (Absent); Urine Bilirubin Negative (Negative); Urine Blood 1+ (Negative); Urine Color Yellow; Urine Glucose 3+(>=500 mg/dL) (Negative); Urine Ketones Trace (Negative); Urine Nitrite Negative (Negative); Urine Protein Negative (Negative); Urine Red Blood Cell Trace(0-2/hpf) (Absent); Urine Specific Gravity 1.017 (1.010-1.030); Urine Urobilinogen Negative (Negative); Urine White Blood Cell Trace(0-5/hpf) (Absent)
[2018-05-01] MEDS: KCL 20 MEQ/100 ML IVPREMIX* 20 MEQ/100 ML BAG IV SCH ×2 (15:49→18:17)
--- NOTE | 2018-05-01 16:16 | HP ---
CC: [facility] * HISTORY AND PHYSICAL: DATE OF ADMISSION: 05/01/18 PROVIDER: Cherise Trinh NP. PRIMARY CARE PROVIDERS: At [facility], Dr. Acosta and Dr. Kevin Boggs. ATTENDING PHYSICIAN WHILE IN THE HOSPITAL: Dr. Ruthann Costa * (dictated by Cherise Trinh NP). CHIEF COMPLAINT: 1. Altered mental status. 2. Hyperglycemia. HISTORY OF PRESENT ILLNESS: Mr. Frank is an 82-year-old male with a past medical history significant for type 2 diabetes, prostate cancer, advanced dementia, history of DVT, hypothyroidism, history of right pontine CVA, history of hepatitis who was brought to the emergency room due to progressively worsening altered mental status and elevated blood sugars. History of present illness was obtained from [facility] nurse, Marylou, due to the patient's advanced dementia. Marylou from [facility] reports that for the past month the patient has had progressive worsening confusion. She reports that the patient has had bizarre behavior. She reports that he has been urinating in random places. He has had increased shaking, needing more cues to do daily tasks. She also reports that his blood sugars have been elevated over the past 2 to 3 weeks. She states that he was started on glimepiride 2 to 3 weeks ago, but continues to have elevated blood sugars. She reports that he has had increased incontinence of urine and stool. She also reports that they have been finding him on the floor more frequently. She does report that the patient has not had any free sugars and he has been drinking water and no fruit juices. His appetite has been good and they have been offering him healthy snacks, but despite starting his glimepiride, the patient's blood sugars continue to be elevated. She also reports the patient's appetite has been good, but the patient has had a 7- to 8-pound weight loss in the last month. Per [facility], the patient has not had any nausea or vomiting, has not had any fevers. While in the emergency room, the patient had routine lab work drawn. He was found to be hyperglycemic with a blood sugar of 613 and elevated BUN and creatinine. The patient was afebrile in the emergency room. He is alert and oriented to self only, which appears to be his baseline. Due to his altered mental status and hyperglycemia, we were asked to see and evaluate him for admission. PAST MEDICAL HISTORY: Significant for: 1. Type 2 diabetes. 2. History of prostate cancer. 3. Advanced dementia. 4. History of DVT. 5. Hypothyroidism. 6. Hepatitis. He is to follow up with Dr. Vargas in [place]. 7. Hepatocellular carcinoma. 8. History of PE. PAST SURGICAL HISTORY: Obtained from his previous records. 1. Back surgery. 2. Cataracts. 3. Prostatectomy. MEDICATIONS: Home medications were obtained from medication record from [facility]. 1. MiraLAX 17 g p.o. daily. 2. Tylenol 325 mg p.o. q.4 hours as needed. 3. Rosuvastatin 5 mg p.o. at bedtime. 4. CellCept 1000 mg p.o. b.i.d. 5. Melatonin 10 mg p.o. at bedtime. 6. Aricept 5 mg p.o. at bedtime. 7. Vitamin D 2000 units p.o. daily. 8. Calcium 2 tabs p.o. daily. 9. Eliquis 5 mg p.o. b.i.d. 10. Levothyroxine 100 mcg p.o. daily. 11. Farxiga 5 mg p.o. daily. 12. Celexa 10 mg p.o. daily. 13. Glimepiride 1 mg p.o. daily. FAMILY HISTORY: Obtained from his previous records. Mother had a history of dementia and father had a heart attack. 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 No history of tobacco, alcohol, or illicit drug use. Surrogate decision maker in the event he is unable to make his own decisions is his , Maia Frank, and daughter, Marylou Frank, phone number is [phone]. REVIEW OF SYSTEMS: The patient denies any pain. He denies chest pain. He denies any diarrhea or abdominal pain. He denies any pain with urination. It is unclear whether the patient can answer questions appropriately due to his advanced dementia. The rest of the review of systems was unobtainable. PHYSICAL EXAMINATION GENERAL: At this time, Mr. Frank is an 82-year-old male who is pleasantly confused, lying on the stretcher in the emergency room. He is not in any acute distress. VITAL SIGNS: Blood pressure 126/73, heart rate 90, respirations are 21, O2 saturation is 93% to 96% on room air, temperature was 98.5. HEENT: Head is atraumatic, normocephalic. Eyes: EOMs are intact. Sclerae anicteric and not pale. Oral mucosa appears to be moist. Pupils are equal and reactive to light at 2 mm. NECK: Supple. LUNGS: Clear to auscultation bilaterally. No wheezes, rales, or rhonchi. Respirations are easy and even with equal lung expansion. CARDIAC: S1, S2. Regular rate and rhythm. No murmurs, rubs, or gallops. ABDOMEN: Round, soft, nontender. Bowel sounds are present x4 and hypoactive. EXTREMITIES: Pedal pulses are +2 bilaterally. There is no clubbing or cyanosis. No lower extremity edema. He can move all 4 extremities. He does have 5/5 strength in all 4 extremities. NEUROLOGIC: He is awake, he is alert and oriented to self only. His handgrips are equal. His speech is clear. There are no gross focal deficits. SKIN: Intact. DIAGNOSTIC STUDIES/LAB DATA: WBCs are 10.2, RBCs 4.74, hemoglobin 14.2, hematocrit 44, platelet count 119. Initial sodium was 151, potassium 4.2, chloride 114, carbon dioxide was 25, anion gap was 12, BUN 46, creatinine 1.51, glucose was 613. Lactic acid was 2.3. Calcium 9.0. Total bilirubin was 1.20, ASTs were 15, ALTs were 119, alkaline phosphatase was 109. Repeat BMP, sodium was 153, potassium 3.4, chloride 124, carbon dioxide 23, anion gap was 6, BUN was 37, creatinine 1.21, glucose was 353, and calcium was 7.8. Urinalysis is currently pending. CT of the brain is currently pending. Chest x-ray is currently pending. EKG showed sinus tachycardia at a rate of 110. ASSESSMENT AND PLAN: Mr. Frank is an 82-year-old male who presented to the emergency room from [facility] with elevated blood sugars and progressively worsening altered mental status x1 month. We were asked to see and evaluate the patient due to hyperglycemia. He will be admitted inpatient for: 1. Hyperglycemia. I suspect this is related to hyperosmolar hyperglycemia. The patient did receive normal saline in the emergency room. We will continue him on half normal saline as he does have an elevated sodium level at 125 cc per hour. We will continue Accu-Cheks q.4 hours and treat his hyperglycemia with lispro sliding scale. We will place him on a consistent carb, mechanical, soft diet with nectar thick liquids. No free sweets. 2. Hypernatremia. I suspect his hypernatremia could be related to dehydration and elevated blood sugar. We will continue him on half normal saline and encourage free water intake. We will repeat a BMP in 4 hours at 1700 today and continue to monitor his sodium and potassium levels. 3. Altered mental status. The patient presents with altered mental status, unclear etiology. Urinalysis is currently pending; he does also have a chest x- ray that is currently pending to rule out urinary tract infection and pneumonia as cause of his mental status. He also does have a history of cerebrovascular accident and dementia. I will get a CT of the brain, which is currently pending , as this could be contributing to his progressively worsening altered mental status over the past month. We will place him on neuro checks q.2 hours. His change in mental status could be related to his hyperglycemia. We will continue to correct his blood sugar at this time. Again, we will repeat a BMP in 4 hours. This also could be related to toxic metabolic encephalopathy due to the alterations in his electrolytes. 4. Acute kidney injury. I suspect this is related to dehydration. We will continue with IV hydration at half normal saline at 125 cc an hour. We will repeat a BMP in 4 hours. We will encourage free water intake. The patient's mucous membranes are dry. 5. Transaminitis. The patient has a history of viral hepatitis where he is followed by Dr. Vargas in [place]. He is currently on CellCept. We will continue his CellCept at this time. 6. Advanced dementia. We will continue on Aricept as previously prescribed and citalopram 10 mg p.o. daily. 7. History of deep vein thrombosis/pulmonary embolism. We will continue on Eliquis 5 mg p.o. b.i.d. 8. Hyperlipidemia. The patient will continue on rosuvastatin 5 mg p.o. daily. 9. Hypothyroid. We will continue on levothyroxine 100 mcg p.o. daily. I have added on a TSH to his lab work; it is currently pending at this time. 10. Diet. He will be placed on a mechanical, soft, consistent carb diet with nectar thick liquids. 11. Code status. The patient is a full code. This will need to be followed up with his healthcare proxy and to confirm. 12. DVT prophylaxis. He will continue on Eliquis 5 mg p.o. b.i.d. 13. Disposition. The patient will be placed inpatient on [address] [place] [address]. TIME SPENT: Time spent on this admission was 60 minutes, greater than half the time was spent [id number] with the patient obtaining my history and physical, the other half of the time was spent going over my plan of care and implementing my plan of care. I have discussed this with my attending, Dr. Ruthann Costa; she is in agreement with my plan. CHERISE TRINH, DEBORAH [id number]/CPS #: [id number] HERNANDEZ
[2018-05-01] MEDS: Insulin LISPRO* 1 UNITS UNIT SUBCUT SCH ×2 (16:50→21:55)
[2018-05-01 17:17] LABS: BUN/Creatinine Ratio 29.4 (8-20); EGFR African American 84.2 (>60); EGFR Non-African American 69.6 (>60); Potassium 3.7 mmol/L (3.5-5.0)
[2018-05-01 17:54] LABS: TSH (Thyroid Stimulating Horm) 1.4 mcIU/mL (0.34-5.60)
[2018-05-01] MEDS: Atorvastatin* 10 MG TAB PO SCH (21:55)
[2018-05-01] MEDS: Donepezil TAB* 5 MG PO SCH (21:55)
[2018-05-01] MEDS: Apixaban* 5 MG TAB PO SCH (21:55)
[2018-05-01] MEDS: Mycophenolate Mofetil TAB(*) 500 MG PO SCH (22:25)
[2018-05-02 01:05] LABS: BUN/Creatinine Ratio 27.1 (8-20); Calcium 8.2 mg/dL (8.6-10.3); EGFR African American 90.3 (>60); EGFR Non-African American 74.6 (>60); Potassium 3.9 mmol/L (3.5-5.0)
[2018-05-02] MEDS: Insulin LISPRO* 1 UNITS UNIT SUBCUT SCH ×6 (01:19→22:20)
[2018-05-02] MEDS: Levothyroxine TAB* 100 MCG TAB PO SCH (05:42)
[2018-05-02 06:51] LABS: ABS Basophils 0 10^3/ul (0-0.2); ABS Eosinophils 0 10^3/ul (0-0.6); ABS Lymphocytes 1.8 10^3/ul (1.0-4.8); ABS Monocytes 0.6 10^3/ul (0-0.8); ABS Neutrophils 6.5 10^3/ul (1.5-7.7); ABS Nucleated RBC 0 10^3/ul; Eosinophil % 0.2 %; Hematocrit 41 % (42-52); Hemoglobin 13.2 g/dl (14.0-18.0); Lymphocyte % 19.5 %; Mean Corpuscular HGB Conc 32 g/dl (31-36); Mean Corpuscular Hemoglobin 30 pg (27-31); Mean Corpuscular Volume 93 fL (80-94); Mean Platelet Volume 9.6 fL (7.4-10.4); Nucleated Red Blood Cells % 0; Platelet Count 101 10^3/ul (150-450); Red Cell Distribution Width 15 % (10.5-15)
[2018-05-02 07:11] LABS: BUN/Creatinine Ratio 27.7 (8-20); Calcium 8.1 mg/dL (8.6-10.3); EGFR African American 106.8 (>60); EGFR Non-African American 88.3 (>60); Potassium 3.2 mmol/L (3.5-5.0)
[2018-05-02] MEDS: Citalopram TAB* 10 MG PO SCH (08:38)
[2018-05-02] MEDS: Mycophenolate Mofetil TAB(*) 500 MG PO SCH ×2 (08:38→22:22)
[2018-05-02] MEDS: Calcium/Vitamin D TAB 250/125* TAB PO SCH (08:38)
[2018-05-02] MEDS: Apixaban* 5 MG TAB PO SCH ×2 (08:38→22:24)
[2018-05-02] MEDS: Cholecalciferol TAB* 1000 UNITS PO SCH (08:38)
[2018-05-02] MEDS: Polyethylene Glycol 3350* 17 GM PACKET PO SCH (08:38)
[2018-05-02] MEDS: Potassium Chlor TAB* 20 MEQ TAB.ER PO SCH ×2 (08:39→12:08)
[2018-05-02] MEDS ORDERED: D5W 1000 ML BAG* 1,000 ML IV SCH (12:00)
[2018-05-02 16:16] LABS: BUN/Creatinine Ratio 24.7 (8-20); Calcium 8.1 mg/dL (8.6-10.3); EGFR African American 98.5 (>60); EGFR Non-African American 81.4 (>60)
--- NOTE | 2018-05-02 19:13 | PN ---
Subjective Date of Service: 05/02/18 Interval History: Resting in recliner on assessment. Alert to self only. Denies cp, palpitations, n/v. Objective Active Medications: Acetaminophen (Tylenol Tab*) 650 mg PO Q4H PRN PRN Reason: FEVER/PAIN Apixaban (Eliquis*) 5 mg PO BID [facility] Last Admin: 05/02/18 08:38 Dose: 5 mg Atorvastatin Calcium (Lipitor*) 10 mg PO BEDTIME [facility]; Protocol Last Admin: 05/01/18 21:55 Dose: 10 mg Calcium/Vitamin D (Oscal D Tab 250/125*) 2 tab PO DAILY [facility] Last Admin: 05/02/18 08:38 Dose: 2 tab Cholecalciferol (Vitamin D Tab*) 2,000 units PO DAILY [facility] Last Admin: 05/02/18 08:38 Dose: 2,000 units Citalopram Hydrobromide (Celexa Tab*) 10 mg PO DAILY [facility] Last Admin: 05/02/18 08:38 Dose: 10 mg Dextrose (D50w Syringe 50 Ml*) 12.5 gm IV PUSH .FOR FS < 60 - SS PRN PRN Reason: FS < 60 Donepezil HCl (Aricept Tab*) 5 mg PO BEDTIME [facility] Last Admin: 05/01/18 21:55 Dose: 5 mg Insulin Human Lispro (Humalog*) 0 units SUBCUT Q4H [facility]; Protocol Last Admin: 05/02/18 16:24 Dose: 4 units Levothyroxine Sodium (Synthroid Tab*) 100 mcg PO 0600 [facility] Last Admin: 05/02/18 05:42 Dose: 100 mcg Mycophenolate Mofetil (Cellcept Tab(*)) 1,000 mg PO BID [facility] Last Admin: 05/02/18 08:38 Dose: 1,000 mg Polyethylene Glycol/Electrolytes (Miralax*) 17 gm PO DAILY [facility] Last Admin: 05/02/18 08:38 Dose: 17 gm Vital Signs - 8 hr 05/02/18 05/02/18 11:43 15:18 Temperature 97.9 F 98.7 F Pulse Rate 95 100 Respiratory 18 20 Rate Blood Pressure 116/68 113/58 (mmHg) O2 Sat by Pulse 96 95 Oximetry Oxygen Devices in Use Now: None Appearance: Comfortable Eyes: PERRLA Ears/Nose/Mouth/Throat: Mucous Membranes Moist Neck: NL Appearance and Movements; NL JVP Respiratory: Symmetrical Chest Expansion and Respiratory Effort, Clear to Auscultation Cardiovascular: NL Sounds; No Murmurs; No JVD, RRR, No Edema Abdominal: NL Sounds; No Tenderness; No Distention Lymphatic: No Cervical Adenopathy Extremities: No Edema Skin: No Rash or Ulcers Neurological: NL Muscle Strength and Tone, - - Alert to self only Nutrition: Taking PO's Result Diagrams: 05/02/18 06:07 05/02/18 15:38 Additional Lab and Data: Laboratory Results - last 24 hr 05/01/18 05/01/18 05/02/18 20:05 20:16 00:41 WBC RBC Hgb Hct MCV MCH MCHC RDW Plt Count MPV Neut % (Auto) Lymph % (Auto) [place] % (Auto) Eos % (Auto) Baso % (Auto) Absolute Neuts (auto) Absolute Lymphs (auto) Absolute Monos (auto) Absolute Eos (auto) Absolute Basos (auto) Absolute Nucleated RBC Nucleated RBC % Sodium 151 H Potassium 3.9 Chloride 121 H Carbon Dioxide 27 Anion Gap 3 BUN 26 H Creatinine 0.96 Est GFR ( Amer) 90.3 Est GFR (Non-Af Amer) 74.6 BUN/Creatinine Ratio 27.1 H Glucose 197 H POC Glucose (mg/dL) 313 H Lactic Acid 1.8 Calcium 8.2 L Triglycerides Cholesterol LDL Cholesterol HDL Cholesterol 05/02/18 05/02/18 05/02/18 00:53 03:49 06:07 WBC 9.0 RBC 4.40 Hgb 13.2 L Hct 41 L MCV 93 MCH 30 MCHC 32 RDW 15 Plt Count 101 L MPV 9.6 Neut % (Auto) 72.8 Lymph % (Auto) 19.5 [place] % (Auto) 7.2 Eos % (Auto) 0.2 Baso % (Auto) 0.3 Absolute Neuts (auto) 6.5 Absolute Lymphs (auto) 1.8 Absolute Monos (auto) 0.6 Absolute Eos (auto) 0 Absolute Basos (auto) 0 Absolute Nucleated RBC 0 Nucleated RBC % 0 Sodium Potassium Chloride Carbon Dioxide Anion Gap BUN Creatinine Est GFR ( Amer) Est GFR (Non-Af Amer) BUN/Creatinine Ratio Glucose POC Glucose (mg/dL) 200 H 198 H Lactic Acid Calcium Triglycerides Cholesterol LDL Cholesterol HDL Cholesterol 05/02/18 05/02/18 05/02/18 06:07 07:49 11:36 WBC RBC Hgb Hct MCV MCH MCHC RDW Plt Count MPV Neut % (Auto) Lymph % (Auto) [place] % (Auto) Eos % (Auto) Baso % (Auto) Absolute Neuts (auto) Absolute Lymphs (auto) Absolute Monos (auto) Absolute Eos (auto) Absolute Basos (auto) Absolute Nucleated RBC Nucleated RBC % Sodium 151 H Potassium 3.2 L Chloride 120 H Carbon Dioxide 26 Anion Gap 5 BUN 23 Creatinine 0.83 Est GFR ( Amer) 106.8 Est GFR (Non-Af Amer) 88.3 BUN/Creatinine Ratio 27.7 H Glucose 149 H POC Glucose (mg/dL) 171 H 198 H Lactic Acid Calcium 8.1 L Triglycerides 83 Cholesterol 130 LDL Cholesterol 78 HDL Cholesterol 35.0 05/02/18 05/02/18 15:38 16:03 WBC RBC Hgb Hct MCV MCH MCHC RDW Plt Count MPV Neut % (Auto) Lymph % (Auto) [place] % (Auto) Eos % (Auto) Baso % (Auto) Absolute Neuts (auto) Absolute Lymphs (auto) Absolute Monos (auto) Absolute Eos (auto) Absolute Basos (auto) Absolute Nucleated RBC Nucleated RBC % Sodium 145 Potassium 4.0 Chloride 115 H Carbon Dioxide 23 Anion Gap 7 BUN 22 Creatinine 0.89 Est GFR ( Amer) 98.5 Est GFR (Non-Af Amer) 81.4 BUN/Creatinine Ratio 24.7 H Glucose 328 H POC Glucose (mg/dL) 336 H Lactic Acid Calcium 8.1 L Triglycerides Cholesterol LDL Cholesterol HDL Cholesterol Microbiology and Other Data: Microbiology 05/01/18 14:27 Urine Urine Culture - Final No Growth (<1,000 CFU/mL) Assess/Plan/Problems-Billing Assessment: 82 yr old male with pmh of dm2, prostate ca, dementia, hx of dvt, hypothyroid, cva, and auto immune hepatitis; who presented to ed with increase in AMS and hyperglycemia - Patient Problems (1) Altered mental status Comment: - Suspected related to dehydration, elevated glucose and elevated sodium - Urine negative - Chest xray negative - No s/s of infection (2) CVA (cerebral vascular accident) Comment: - Cont statin - Cont Eliquis (3) Dementia Comment: - Continue aricept and supportive care. (4) Diabetes Comment: - BG 600s on admission, improving with SS and IVF - Per patient was recently diagnosed and started on glimepiride - Hold glimepiride for now (5) Elevated LFTs Comment: - suspect this could be related to dehydration which could of caused hypoprofusion to the liver - patient does also have a hx of auto immune hepatitis - who is followed by Dr. Devine at [place] (6) Hypothyroid Current Visit: No Status: Acute Code(s): E03.9 - HYPOTHYROIDISM, UNSPECIFIED SNOMED Code(s): 73110519 Comment: - TSH wnl - Continue levothyroxine. (7) Hypernatremia Comment: - Resolved with IVF - Repeat BMP tomorrow (8) Full code status Comment: (9) DVT prophylaxis Comment: - Patient with hx of DVT. - Continue eliquis. Attending: Ginna Tabares
[2018-05-02] MEDS: Atorvastatin* 10 MG TAB PO SCH (22:24)
[2018-05-02] MEDS: Donepezil TAB* 5 MG PO SCH (22:25)
[2018-05-03] MEDS: Insulin LISPRO* 1 UNITS UNIT SUBCUT SCH ×5 (00:25→17:36)
[2018-05-03] MEDS: Levothyroxine TAB* 100 MCG TAB PO SCH (06:17)
[2018-05-03 06:40] LABS: Hematocrit 41 % (42-52); Hemoglobin 13.4 g/dl (14.0-18.0); Mean Corpuscular HGB Conc 33 g/dl (31-36); Mean Corpuscular Hemoglobin 30 pg (27-31); Mean Corpuscular Volume 93 fL (80-94); Red Blood Count 4.43 10^6/ul (4.00-5.40); Red Cell Distribution Width 15 % (10.5-15); White Blood Count 8.1 10^3/ul (3.5-10.8)
[2018-05-03 07:01] LABS: Albumin/Globulin Ratio 0.9 (1-3); BUN/Creatinine Ratio 23.8 (8-20); Calcium 8.5 mg/dL (8.6-10.3); EGFR African American 111.4 (>60); EGFR Non-African American 92.1 (>60); Globulin 3.4 g/dL (2-4); Potassium 3.8 mmol/L (3.5-5.0); Total Bilirubin 1.1 mg/dL (0.2-1.0); Total Protein 6.4 g/dL (6.4-8.9)
[2018-05-03 07:27] LABS: ABS Basophils 0 10^3/ul (0-0.2); ABS Eosinophils 0 10^3/ul (0-0.6); ABS Lymphocytes 2.2 10^3/ul (1.0-4.8); ABS Monocytes 0.6 10^3/ul (0-0.8); ABS Neutrophils 5.2 10^3/ul (1.5-7.7); ABS Nucleated RBC 0 10^3/ul; Eosinophil % 0.6 %; Large Platelets Present; Lymphocyte % 27.6 %; Nucleated Red Blood Cells % 0.1; Platelet Count 130 10^3/ul (150-450)
[2018-05-03] MEDS: Polyethylene Glycol 3350* 17 GM PACKET PO SCH (08:29)
[2018-05-03] MEDS: Mycophenolate Mofetil TAB(*) 500 MG PO SCH ×2 (08:29→21:20)
[2018-05-03] MEDS: Apixaban* 5 MG TAB PO SCH ×2 (08:30→21:16)
[2018-05-03] MEDS: Cholecalciferol TAB* 1000 UNITS PO SCH (08:30)
[2018-05-03] MEDS: Calcium/Vitamin D TAB 250/125* TAB PO SCH (08:30)
[2018-05-03] MEDS: Citalopram TAB* 10 MG PO SCH (08:30)
[2018-05-03] MEDS ORDERED: NS 0.45% 1000 ML BAG* 1,000 ML IV SCH (14:00)
[2018-05-03] MEDS ORDERED: Dextrose 50% Syringe 50 ML* 25 GM/50 ML SYRINGE IV PUSH PRN ×3 (15:53→21:52)
--- NOTE | 2018-05-03 16:01 | PN ---
Subjective Date of Service: 05/03/18 Interval History: Patient resting in bed on assessment. Patient is awake and alert to self. Denies cp, sob, nausea. ROS limited due to patient's confusion Objective Active Medications: Acetaminophen (Tylenol Tab*) 650 mg PO Q4H PRN PRN Reason: FEVER/PAIN Apixaban (Eliquis*) 5 mg PO BID [facility] Last Admin: 05/03/18 08:30 Dose: 5 mg Atorvastatin Calcium (Lipitor*) 10 mg PO BEDTIME [facility]; Protocol Last Admin: 05/02/18 22:24 Dose: 10 mg Calcium/Vitamin D (Oscal D Tab 250/125*) 2 tab PO DAILY [facility] Last Admin: 05/03/18 08:30 Dose: 2 tab Cholecalciferol (Vitamin D Tab*) 2,000 units PO DAILY [facility] Last Admin: 05/03/18 08:30 Dose: 2,000 units Citalopram Hydrobromide (Celexa Tab*) 10 mg PO DAILY [facility] Last Admin: 05/03/18 08:30 Dose: 10 mg Dextrose (D50w Syringe 50 Ml*) 12.5 gm IV PUSH .FOR FS < 60 - SS PRN PRN Reason: FS < 60 Dextrose (D50w Syringe 50 Ml*) 12.5 gm IV PUSH .FOR FS < 60 - SS PRN PRN Reason: FS < 60 Donepezil HCl (Aricept Tab*) 5 mg PO BEDTIME [facility] Last Admin: 05/02/18 22:25 Dose: 5 mg Sodium Chloride (Ns 0.45% 1000 Ml Bag*) 1,000 mls @ 75 mls/hr IV PER RATE [facility] Stop: 05/04/18 03:19 Last Admin: 05/03/18 14:34 Dose: 75 mls/hr Insulin Glargine (Lantus(*)) 7 units SUBCUT Q24H [facility] Insulin Human Lispro (Humalog*) 5 units SUBCUT AC [facility] Levothyroxine Sodium (Synthroid Tab*) 100 mcg PO 0600 [facility] Last Admin: 05/03/18 06:17 Dose: 100 mcg Mycophenolate Mofetil (Cellcept Tab(*)) 1,000 mg PO BID [facility] Last Admin: 05/03/18 08:29 Dose: 1,000 mg Polyethylene Glycol/Electrolytes (Miralax*) 17 gm PO DAILY [facility] Last Admin: 05/03/18 08:29 Dose: 17 gm Vital Signs - 8 hr 05/03/18 05/03/18 08:00 10:40 Temperature 98.7 F Pulse Rate 109 Respiratory 16 22 Rate Blood Pressure 112/55 (mmHg) O2 Sat by Pulse 93 Oximetry Oxygen Devices in Use Now: None Appearance: Comfortable Eyes: No Scleral Icterus Ears/Nose/Mouth/Throat: Clear Oropharnyx, Mucous Membranes Moist Neck: NL Appearance and Movements; NL JVP Respiratory: Symmetrical Chest Expansion and Respiratory Effort, Clear to Auscultation Cardiovascular: NL Sounds; No Murmurs; No JVD, RRR, No Edema Abdominal: NL Sounds; No Tenderness; No Distention Lymphatic: No Cervical Adenopathy Extremities: No Edema Skin: No Rash or Ulcers Neurological: NL Muscle Strength and Tone, - - Alert to self only Nutrition: Taking PO's Result Diagrams: 05/03/18 06:11 05/03/18 06:11 Additional Lab and Data: Laboratory Results - last 24 hr 05/02/18 05/02/18 05/02/18 15:38 16:03 20:46 WBC RBC Hgb Hct MCV MCH MCHC RDW Plt Count MPV Neut % (Auto) Lymph % (Auto) [place] % (Auto) Eos % (Auto) Baso % (Auto) Absolute Neuts (auto) Absolute Lymphs (auto) Absolute Monos (auto) Absolute Eos (auto) Absolute Basos (auto) Absolute Nucleated RBC Nucleated RBC % Large Platelets Sodium 145 Potassium 4.0 Chloride 115 H Carbon Dioxide 23 Anion Gap 7 BUN 22 Creatinine 0.89 Est GFR ( Amer) 98.5 Est GFR (Non-Af Amer) 81.4 BUN/Creatinine Ratio 24.7 H Glucose 328 H POC Glucose (mg/dL) 336 H 346 H Hemoglobin A1c Calcium 8.1 L Total Bilirubin AST ALT Alkaline Phosphatase Total Protein Albumin Globulin Albumin/Globulin Ratio 05/02/18 05/03/18 05/03/18 23:40 03:53 06:06 WBC RBC Hgb Hct MCV MCH MCHC RDW Plt Count MPV Neut % (Auto) Lymph % (Auto) [place] % (Auto) Eos % (Auto) Baso % (Auto) Absolute Neuts (auto) Absolute Lymphs (auto) Absolute Monos (auto) Absolute Eos (auto) Absolute Basos (auto) Absolute Nucleated RBC Nucleated RBC % Large Platelets Sodium Potassium Chloride Carbon Dioxide Anion Gap BUN Creatinine Est GFR ( Amer) Est GFR (Non-Af Amer) BUN/Creatinine Ratio Glucose POC Glucose (mg/dL) 214 H 144 H 150 H Hemoglobin A1c Calcium Total Bilirubin AST ALT Alkaline Phosphatase Total Protein Albumin Globulin Albumin/Globulin Ratio 05/03/18 05/03/18 05/03/18 06:08 06:11 06:11 WBC 8.1 RBC 4.43 Hgb 13.4 L Hct 41 L MCV 93 MCH 30 MCHC 33 RDW 15 Plt Count 130 L MPV 10.0 Neut % (Auto) 64.3 Lymph % (Auto) 27.6 [place] % (Auto) 6.9 Eos % (Auto) 0.6 Baso % (Auto) 0.6 Absolute Neuts (auto) 5.2 Absolute Lymphs (auto) 2.2 Absolute Monos (auto) 0.6 Absolute Eos (auto) 0 Absolute Basos (auto) 0 Absolute Nucleated RBC 0 Nucleated RBC % 0.1 Large Platelets Present Sodium 146 H Potassium 3.8 Chloride 113 H Carbon Dioxide 25 Anion Gap 8 BUN 19 Creatinine 0.80 Est GFR ( Amer) 111.4 Est GFR (Non-Af Amer) 92.1 BUN/Creatinine Ratio 23.8 H Glucose 144 H POC Glucose (mg/dL) Hemoglobin A1c 14.5 H Calcium 8.5 L Total Bilirubin 1.10 H AST 56 H ALT 78 H Alkaline Phosphatase 84 Total Protein 6.4 Albumin 3.0 L Globulin 3.4 Albumin/Globulin Ratio 0.9 L 05/03/18 05/03/18 07:34 12:06 WBC RBC Hgb Hct MCV MCH MCHC RDW Plt Count MPV Neut % (Auto) Lymph % (Auto) [place] % (Auto) Eos % (Auto) Baso % (Auto) Absolute Neuts (auto) Absolute Lymphs (auto) Absolute Monos (auto) Absolute Eos (auto) Absolute Basos (auto) Absolute Nucleated RBC Nucleated RBC % Large Platelets Sodium Potassium Chloride Carbon Dioxide Anion Gap BUN Creatinine Est GFR ( Amer) Est GFR (Non-Af Amer) BUN/Creatinine Ratio Glucose POC Glucose (mg/dL) 168 H 299 H Hemoglobin A1c Calcium Total Bilirubin AST ALT Alkaline Phosphatase Total Protein Albumin Globulin Albumin/Globulin Ratio Microbiology and Other Data: Microbiology 05/01/18 14:27 Urine Urine Culture - Final No Growth (<1,000 CFU/mL) Assess/Plan/Problems-Billing Assessment: 82 yr old male with pmh of dm2, prostate ca, dementia, hx of dvt, hypothyroid, cva, and auto immune hepatitis; who presented to ed with increase in AMS and hyperglycemia - Patient Problems (1) Diabetes Comment: - BG 600s on admission, improving with insulin and IVF - Per patient was recently diagnosed and started on glimepiride - Hold glimepiride for now - Hemaglobin A1c 14.5 - Starting patient on regime of Lantus 7 units nightly and 5 units Lispro with meals (2) Altered mental status Comment: - Suspected related to dehydration, elevated glucose and elevated sodium - Urine negative - Chest xray negative - No s/s of infection (3) CVA (cerebral vascular accident) Comment: - Cont statin - Cont Eliquis (4) Dementia Comment: - Continue aricept and supportive care. (5) Elevated LFTs Comment: - Suspect this could be related to dehydration which could of caused hypoprofusion to the liver - Patient does also have a hx of auto immune hepatitis - who is followed by Dr. Devine at [place] - LFTs improving with IVF (6) Hypothyroid Current Visit: No Status: Acute Code(s): E03.9 - HYPOTHYROIDISM, UNSPECIFIED SNOMED Code(s): 18509878 Comment: - TSH wnl - Continue levothyroxine. (7) Hypernatremia Comment: - Resolved with IVF - Repeat BMP tomorrow (8) Full code status Comment: (9) DVT prophylaxis Comment: - Patient with hx of DVT. - Continue eliquis. Attending: Ginna Tabares
[2018-05-03] MEDS ORDERED: Insulin LISPRO* 1 UNITS UNIT SUBCUT SCH (16:30)
[2018-05-03] MEDS ORDERED: Insulin GLARGINE(*) 1 UNITS UNIT SUBCUT SCH (20:00)
[2018-05-03] MEDS: Atorvastatin* 10 MG TAB PO SCH (21:17)
[2018-05-03] MEDS: Insulin GLARGINE(*) 1 UNITS UNIT SUBCUT SCH (21:17)
[2018-05-03] MEDS: Donepezil TAB* 5 MG PO SCH (21:17)
[2018-05-03] MEDS ORDERED: Insulin LISPRO* 1 UNITS UNIT SUBCUT ONE ×2 (21:51→21:55)
[2018-05-04] MEDS: Levothyroxine TAB* 100 MCG TAB PO SCH (05:39)
[2018-05-04 07:13] LABS: Albumin 2.9 g/dL (3.2-5.2); Albumin/Globulin Ratio 0.9 (1-3); BUN/Creatinine Ratio 23.5 (8-20); Calcium 8.3 mg/dL (8.6-10.3); EGFR African American 109.9 (>60); EGFR Non-African American 90.8 (>60); Globulin 3.4 g/dL (2-4); Total Bilirubin 1.1 mg/dL (0.2-1.0); Total Protein 6.3 g/dL (6.4-8.9)
[2018-05-04] MEDS: Insulin LISPRO* 1 UNITS UNIT SUBCUT SCH ×6 (11:06→18:57)
[2018-05-04] MEDS: Cholecalciferol TAB* 1000 UNITS PO SCH (11:07)
[2018-05-04] MEDS: Mycophenolate Mofetil TAB(*) 500 MG PO SCH ×2 (11:07→21:19)
[2018-05-04] MEDS: Citalopram TAB* 10 MG PO SCH (11:08)
[2018-05-04] MEDS: Calcium/Vitamin D TAB 250/125* TAB PO SCH (11:08)
[2018-05-04] MEDS: Apixaban* 5 MG TAB PO SCH ×2 (11:08→21:19)
[2018-05-04] MEDS: Polyethylene Glycol 3350* 17 GM PACKET PO SCH (11:16)
--- NOTE | 2018-05-04 14:52 | PN ---
Subjective Date of Service: 05/04/18 Interval History: Mr. Frank denies complaint today but is pleasantly confused. Objective Active Medications: Acetaminophen (Tylenol Tab*) 650 mg PO Q4H PRN Apixaban (Eliquis*) 5 mg PO BID [facility] Atorvastatin Calcium (Lipitor*) 10 mg PO BEDTIME [facility]; Protocol Calcium/Vitamin D (Oscal D Tab 250/125*) 2 tab PO DAILY [facility] Cholecalciferol (Vitamin D Tab*) 2,000 units PO DAILY [facility] Citalopram Hydrobromide (Celexa Tab*) 10 mg PO DAILY [facility] Dextrose (D50w Syringe 50 Ml*) 12.5 gm IV PUSH .FOR FS < 60 - SS PRN Donepezil HCl (Aricept Tab*) 5 mg PO BEDTIME [facility] Insulin Glargine (Lantus(*)) 7 units SUBCUT Q24H [facility] Insulin Human Lispro (Humalog*) 5 units SUBCUT AC [facility] Insulin Human Lispro (Humalog*) 0 units SUBCUT AC [facility]; Protocol Levothyroxine Sodium (Synthroid Tab*) 100 mcg PO 0600 [facility] Mycophenolate Mofetil (Cellcept Tab(*)) 1,000 mg PO BID [facility] Polyethylene Glycol/Electrolytes (Miralax*) 17 gm PO DAILY [facility] Vital Signs: Temp Pulse Resp BP Pulse Ox 97.7 F 97 20 116/66 95 05/04/18 11:15 05/04/18 11:15 05/04/18 11:15 05/04/18 11:15 05/04/18 11:15 Oxygen Devices in Use Now: None Appearance: Male lying in bed in NAD Eyes: No Scleral Icterus Ears/Nose/Mouth/Throat: Mucous Membranes Moist Neck: Trachea Midline Respiratory: Symmetrical Chest Expansion and Respiratory Effort, Clear to Auscultation Cardiovascular: NL Sounds; No Murmurs; No JVD, No Edema Abdominal: NL Sounds; No Tenderness; No Distention Extremities: No Edema Skin: No Rash or Ulcers Neurological: - - Alert, oriented to self only, moves all extremities, generally weak Result Diagrams: 05/03/18 06:11 05/04/18 06:31 Additional Lab and Data: . Microbiology and Other Data: . Assess/Plan/Problems-Billing Assessment: Mr. Frank is an 82 yr old male with pmh of dm2, prostate ca, dementia, hx of dvt, hypothyroid, cva, and auto immune hepatitis; who presented to ed with increase in AMS and hyperglycemia - Patient Problems (1) Altered mental status Comment: - Toxic metabolic encephalopathy, improving somewhat - Suspected related to dehydration, elevated glucose and elevated sodium - Urine negative - Chest xray negative - No s/s of infection (2) Diabetes Comment: - BG 600s on admission, improving with insulin and IVF - Per patient was recently diagnosed and started on glimepiride. Hold glimepiride for now - Hemaglobin A1c 14.5 - Starting patient on regime of Lantus 7 units nightly and 5 units Lispro with meals (3) Hypernatremia Comment: - Resolved with IVF - Repeat BMP tomorrow (4) Elevated LFTs Comment: - Resolving with IVF - Suspect this could be related to dehydration which could of caused hypoprofusion to the liver - Patient does also have a hx of auto immune hepatitis - who is followed by Dr. Devine at [facility] - LFTs improving with IVF (5) CVA (cerebral vascular accident) Comment: - Cont statin - Cont Eliquis (6) Dementia Comment: - Continue aricept and supportive care. (7) Hypothyroid Comment: - TSH wnl - Continue levothyroxine. (8) DVT prophylaxis Comment: - Patient with hx of DVT. - Continue eliquis. (9) Full code status Comment: Status and Disposition: Inpatient. From [place], anticipate need for higher level of care.
[2018-05-04] MEDS: Donepezil TAB* 5 MG PO SCH (21:19)
[2018-05-04] MEDS: Atorvastatin* 10 MG TAB PO SCH (21:19)
[2018-05-04] MEDS: Insulin GLARGINE(*) 1 UNITS UNIT SUBCUT SCH (21:19)
[2018-05-05] MEDS: Levothyroxine TAB* 100 MCG TAB PO SCH (06:07)
[2018-05-05] MEDS: Insulin LISPRO* 1 UNITS UNIT SUBCUT SCH ×4 (10:27→16:09)
[2018-05-05] MEDS ORDERED: Zosyn per Pharmacy* NOTE FOLLOW UP SCH (11:00)
[2018-05-05] MEDS ORDERED: Piperacillin/Tazobac ADVAN(*) 3.375 GM in NS 0.9% 100 ML* 100 ML IVPB ONE (11:00)
[2018-05-05] MEDS: Apixaban* 5 MG TAB PO SCH (12:41)
[2018-05-05] MEDS: Mycophenolate Mofetil TAB(*) 500 MG PO SCH (12:41)
[2018-05-05] MEDS: Cholecalciferol TAB* 1000 UNITS PO SCH (12:41)
[2018-05-05] MEDS: Polyethylene Glycol 3350* 17 GM PACKET PO SCH (12:41)
[2018-05-05] MEDS: Calcium/Vitamin D TAB 250/125* TAB PO SCH (12:41)
[2018-05-05] MEDS: Citalopram TAB* 10 MG PO SCH (12:41)
--- NOTE | 2018-05-05 13:05 | PN ---
Subjective Date of Service: 05/05/18 Interval History: Mr. Frank is not able to offer meaningful complaint but he is in no acute distress. Objective Active Medications: Acetaminophen (Tylenol Tab*) 650 mg PO Q4H PRN Apixaban (Eliquis*) 5 mg PO BID [facility] Atorvastatin Calcium (Lipitor*) 10 mg PO BEDTIME [facility]; Protocol Calcium/Vitamin D (Oscal D Tab 250/125*) 2 tab PO DAILY [facility] Cholecalciferol (Vitamin D Tab*) 2,000 units PO DAILY [facility] Citalopram Hydrobromide (Celexa Tab*) 10 mg PO DAILY [facility] Dextrose (D50w Syringe 50 Ml*) 12.5 gm IV PUSH .FOR FS < 60 - SS PRN Donepezil HCl (Aricept Tab*) 5 mg PO BEDTIME [facility] Insulin Glargine (Lantus(*)) 7 units SUBCUT Q24H [facility] Insulin Human Lispro (Humalog*) 5 units SUBCUT AC [facility] Insulin Human Lispro (Humalog*) 0 units SUBCUT AC [facility]; Protocol Levothyroxine Sodium (Synthroid Tab*) 100 mcg PO 0600 [facility] Mycophenolate Mofetil (Cellcept Tab(*)) 1,000 mg PO BID [facility] Pharmacy Consult (Zosyn Per Pharmacy*) 1 note FOLLOW UP .ZOSYN PER PHARMACY [facility] Polyethylene Glycol/Electrolytes (Miralax*) 17 gm PO DAILY [facility] Vital Signs: Temp Pulse Resp BP Pulse Ox 97.2 F 84 18 102/62 97 05/05/18 07:41 05/05/18 07:41 05/05/18 08:00 05/05/18 07:41 05/05/18 07:41 Oxygen Devices in Use Now: Nasal Cannula Appearance: Male lying in bed in NAD Eyes: No Scleral Icterus Ears/Nose/Mouth/Throat: Mucous Membranes Moist Neck: Trachea Midline Respiratory: Symmetrical Chest Expansion and Respiratory Effort, Clear to Auscultation Cardiovascular: NL Sounds; No Murmurs; No JVD, No Edema Abdominal: NL Sounds; No Tenderness; No Distention Extremities: No Edema Skin: No Rash or Ulcers Neurological: Alert and Oriented x 3, NL Muscle Strength and Tone Nutrition: Taking PO's Result Diagrams: 05/03/18 06:11 05/04/18 06:31 Additional Lab and Data: . Microbiology and Other Data: . Assess/Plan/Problems-Billing Assessment: Mr. Frank is an 82 yr old male with pmh of dm2, prostate ca, dementia, hx of dvt, hypothyroid, cva, and auto immune hepatitis; who presented to ed with increase in AMS and hyperglycemia, now with concern for possible aspiration. - Patient Problems (1) Aspiration into respiratory tract Comment: - Nurse noted patient coughing after eating this morning, then noted to be tachypneic with concern for aspiration - Chest xray negative, afebrile - Suspect chemical pneumonitis but will cover with zosyn x 24 hr and then discontinue if he remains stable (2) Altered mental status Comment: - Toxic metabolic encephalopathy, improving - Suspected related to dehydration, elevated glucose and elevated sodium - Urine negative - Chest xray negative (3) Diabetes Comment: - BG 600s on admission, improving with insulin and IVF - Per patient was recently diagnosed and started on glimepiride. Hold glimepiride for now - Hemaglobin A1c 14.5 - Starting patient on regime of Lantus 7 units nightly and 5 units Lispro with meals (4) Hypernatremia Comment: - Resolved with IVF - Repeat BMP tomorrow (5) Elevated LFTs Comment: - Resolving with IVF - Suspect this could be related to dehydration which could of caused hypoprofusion to the liver - Patient does also have a hx of auto immune hepatitis - who is followed by Dr. Devine at [place] - LFTs improving with IVF (6) CVA (cerebral vascular accident) Comment: - Cont statin - Cont Eliquis (7) Dementia Comment: - Continue aricept and supportive care. (8) Hypothyroid Comment: - TSH wnl - Continue levothyroxine. (9) DVT prophylaxis Comment: - Patient with hx of DVT. - Continue eliquis. (10) Full code status Comment: Status and Disposition: Inpatient. From [place], anticipate need for higher level of care.
[2018-05-05] MEDS ORDERED: NS 0.9% 500 ML* 500 ML IV ONE (15:12)
[2018-05-05] MEDS ORDERED: Acetaminophen SUPP* 650 MG SUPP PR PRN (16:17)
[2018-05-05] MEDS ORDERED: NS 0.9% 1000 ML** 2,000 ML IV ONE (16:20)
[2018-05-05 16:28] LABS: ABS Basophils 0 10^3/ul (0-0.2); ABS Eosinophils 0 10^3/ul (0-0.6); ABS Lymphocytes 0.5 10^3/ul (1.0-4.8); ABS Monocytes 0.3 10^3/ul (0-0.8); ABS Neutrophils 9.3 10^3/ul (1.5-7.7); ABS Nucleated RBC 0 10^3/ul; Eosinophil % 0.3 %; Hematocrit 40 % (42-52); Hemoglobin 13.1 g/dl (14.0-18.0); Lymphocyte % 4.5 %; Mean Corpuscular HGB Conc 33 g/dl (31-36); Mean Corpuscular Hemoglobin 30 pg (27-31); Mean Corpuscular Volume 92 fL (80-94); Mean Platelet Volume 10.4 fL (7.4-10.4); Nucleated Red Blood Cells % 0; Platelet Count 114 10^3/ul (150-450); Red Blood Count 4.35 10^6/ul (4.00-5.40); Red Cell Distribution Width 15 % (10.5-15); White Blood Count 10.1 10^3/ul (3.5-10.8)
[2018-05-05] MEDS ORDERED: Insulin LISPRO* 1 UNITS UNIT SUBCUT SCH ×2 (16:30→17:00)
[2018-05-05 16:44] LABS: Albumin 3.2 g/dL (3.2-5.2); Albumin/Globulin Ratio 0.8 (1-3); BUN/Creatinine Ratio 19.8 (8-20); Calcium 8.3 mg/dL (8.6-10.3); EGFR African American 80.5 (>60); EGFR Non-African American 66.6 (>60); Potassium 4.1 mmol/L (3.5-5.0); Total Protein 7.2 g/dL (6.4-8.9)
[2018-05-05 16:51] LABS: Influenza A Molecular NEGATIVE (Negative); Influenza B Molecular NEGATIVE (Negative)
[2018-05-05] MEDS ORDERED: Albuterol/Ipratropium NEB.SOL* Albuterol 2.5 MG/Ipratropium 0.5 MG 3 ML INH PRN (17:04)
[2018-05-05] MEDS ORDERED: Morphine VIAL* 4 MG/ML VIAL (1 ml vial) IV PRN (17:05)
[2018-05-05] MEDS ORDERED: Albuterol/Ipratropium NEB.SOL* Albuterol 2.5 MG/Ipratropium 0.5 MG 3 ML ONE (17:06)
[2018-05-05] MEDS: NS 0.9% 1000 ML** 1,000 ML IV SCH (17:25)
--- NOTE | 2018-05-05 18:16 | PN ---
Progress Note - Progress Note Date of Service: 05/05/18 Note: Patient evidencing increased work of breathing with tachypnea after suspected aspiration event at approx noon today. Zosyn started at time of event, chest xray did not show immediate change. Over the next couple of hours patient continued to have increasing tachypnea and then tachycardia. Patient transferred to ICU with plans for initiation of vapotherm. ABG on arrival shows a respiratory alkalosis with good oxygenation. Patient settled on vapotherm to support work of breathing. Low dose morphine given prn for dyspnea /agitation/work of breathing given that this seems to be driving his respiratory dynamics despite lack of severe respiratory compromise per ABG. IV fluids per sepsis protocol ordered. Lactic acid only 2.5. Patient's updated immediately prior to transfer to ICU. She should be arriving at the hospital at approx 7pm.
[2018-05-05] MEDS: ZOSYN 3.375 GM Q8H per EXTENDED INFUSION IVPB SCH ×2 (18:41)
[2018-05-05] MEDS: Insulin GLARGINE(*) 1 UNITS UNIT SUBCUT SCH (22:05)
[2018-05-06] MEDS: ZOSYN 3.375 GM Q8H per EXTENDED INFUSION IVPB SCH ×4 (02:21→08:56)
[2018-05-06 05:52] LABS: ABS Basophils 0.1 10^3/ul (0-0.2); ABS Eosinophils 0 10^3/ul (0-0.6); ABS Lymphocytes 1.7 10^3/ul (1.0-4.8); ABS Monocytes 0.6 10^3/ul (0-0.8); ABS Neutrophils 10.1 10^3/ul (1.5-7.7); ABS Nucleated RBC 0 10^3/ul; Eosinophil % 0.2 %; Hematocrit 37 % (42-52); Hemoglobin 11.7 g/dl (14.0-18.0); Lymphocyte % 13.3 %; Mean Corpuscular HGB Conc 32 g/dl (31-36); Mean Corpuscular Hemoglobin 30 pg (27-31); Mean Corpuscular Volume 94 fL (80-94); Mean Platelet Volume 9.9 fL (7.4-10.4); Nucleated Red Blood Cells % 0; Platelet Count 88 10^3/ul (150-450); Red Blood Count 3.91 10^6/ul (4.00-5.40); Red Cell Distribution Width 15 % (10.5-15); White Blood Count 12.4 10^3/ul (3.5-10.8)
[2018-05-06 06:22] LABS: Calcium 7.8 mg/dL (8.6-10.3); Potassium 3.9 mmol/L (3.5-5.0)
[2018-05-06 06:27] LABS: BUN/Creatinine Ratio 20.5 (8-20); EGFR African American 99.8 (>60); EGFR Non-African American 82.5 (>60)
[2018-05-06] MEDS ORDERED: NS 0.9% 100 ML* 100 ML ONE (08:19)
[2018-05-06] MEDS: NS 0.9% 1000 ML** 1,000 ML IV SCH ×2 (08:56→18:21)
--- NOTE | 2018-05-06 12:39 | PN ---
Subjective Date of Service: 05/06/18 Interval History: Mr. Frank is alert and denies any complaint. His reports that he is back to his baseline. He appears in no acute distress. Objective Active Medications: Acetaminophen (Tylenol Supp*) 650 mg NC Q6H PRN Albuterol/Ipratropium (Duoneb (Albuterol 2.5 Mg/Ipratropium 0.5 Mg)) 1 neb INH Q4H PRN Dextrose (D50w Syringe 50 Ml*) 12.5 gm IV PUSH .FOR FS < 60 - SS PRN Piperacillin Sod/Tazobactam (Sod 3.375 gm/ Sodium Chloride) 100 mls @ 25 mls/ hr IVPB Q8H [facility] Sodium Chloride (Ns 0.9% 1000 Ml) 1,000 mls @ 100 mls/hr IV PER RATE [facility] Insulin Glargine (Lantus(*)) 10 units SUBCUT Q24H [facility] Morphine Sulfate (Morphine Vial*) 1 mg IV Q1H PRN Pharmacy Consult (Zosyn Per Pharmacy*) 1 note FOLLOW UP .ZOSYN PER PHARMACY [facility] Vital Signs: Temp Pulse Resp BP Pulse Ox 99.1 F 86 28 104/58 95 05/06/18 07:43 05/06/18 12:01 05/06/18 12:01 05/06/18 12:00 05/06/18 12:01 Oxygen Devices in Use Now: Nasal Cannula Appearance: Male sitting up in chair in NAD Eyes: No Scleral Icterus Ears/Nose/Mouth/Throat: Mucous Membranes Moist Neck: Trachea Midline Respiratory: Symmetrical Chest Expansion and Respiratory Effort, Clear to Auscultation Cardiovascular: NL Sounds; No Murmurs; No JVD, No Edema Abdominal: NL Sounds; No Tenderness; No Distention Extremities: No Edema Skin: No Rash or Ulcers Neurological: NL Muscle Strength and Tone, - - Alert, oriented to self only, pleasant Result Diagrams: 05/06/18 05:29 05/06/18 05:29 Additional Lab and Data: . Microbiology and Other Data: . Assess/Plan/Problems-Billing Assessment: Mr. Frank is an 82 yr old male with pmh of dm2, prostate ca, dementia, hx of dvt, hypothyroid, cva, and auto immune hepatitis; who presented to ed with increase in AMS and hyperglycemia, now with concern for possible aspiration. - Patient Problems (1) Aspiration into respiratory tract Comment: - Stabilized overnight, back to baseline, on room air - Nurse noted patient coughing after eating yesterday, then noted to be tachypneic with concern for aspiration - Plan to complete short course of augmentin (2) Altered mental status Comment: - Resolved (3) Diabetes Comment: - BG 600s on admission, improving with insulin and IVF - Per patient was recently diagnosed and started on glimepiride. Hold glimepiride for now - Hemaglobin A1c 14.5 - Starting patient on regime of Lantus 7 units nightly and 5 units Lispro with meals (4) Hypernatremia Comment: - Resolved with IVF - Repeat BMP tomorrow (5) Elevated LFTs Comment: - Resolving with IVF - Suspect this could be related to dehydration which could of caused hypoprofusion to the liver - Patient does also have a hx of auto immune hepatitis - who is followed by Dr. Devine at [place] - LFTs improving with IVF (6) CVA (cerebral vascular accident) Comment: - Cont statin - Cont Eliquis (7) Dementia Comment: - Continue aricept and supportive care. (8) Hypothyroid Comment: - TSH wnl - Continue levothyroxine. (9) DVT prophylaxis Comment: - Patient with hx of DVT. - Continue eliquis. (10) Full code status Comment: Status and Disposition: Inpatient. From [place], anticipate need for higher level of care.
[2018-05-06] MEDS ORDERED: Dextrose 50% Syringe 50 ML* 25 GM/50 ML SYRINGE IV PUSH PRN (16:59)
[2018-05-06] MEDS: Amoxicillin/Clavulanate TAB* 875 MG PO SCH (20:31)
[2018-05-06] MEDS: Insulin GLARGINE(*) 1 UNITS UNIT SUBCUT SCH (20:33)
[2018-05-07] MEDS ORDERED: Haloperidol INJ IV/IM* 5 MG/ML AMP IV SLOW PU PRN (00:21)
[2018-05-07] MEDS: NS 0.9% 1000 ML** 1,000 ML IV SCH (04:32)
[2018-05-07] MEDS: Haloperidol INJ IV/IM* 5 MG/ML AMP IV SLOW PU PRN (04:49)
[2018-05-07] MEDS ORDERED: Apixaban* 5 MG TAB PO ONE (08:35)
[2018-05-07] MEDS: Amoxicillin/Clavulanate TAB* 875 MG PO SCH ×2 (08:43→21:49)
[2018-05-07] MEDS: Apixaban* 5 MG TAB PO SCH ×2 (08:43→21:49)
[2018-05-07] MEDS: Insulin LISPRO* 1 UNITS UNIT SUBCUT SCH ×3 (08:43→18:02)
--- NOTE | 2018-05-07 16:15 | PN ---
Subjective Date of Service: 05/07/18 Interval History: Mr. Frank is feeling ok today. He offers no complaints. His is at the bedside and thinks he is much more lethargic than yesterday. She states he did not sleep at all yesterday or last night. She is concerned about the diabetic medication the patient was started on prior to admission. She feels as though that medication is the reason for his current status. She does not want him to be on insulin. She would like for him to return to [place] and is not open to [place] at any of the local SNFs. Family History: Unchanged from Admission Social History: Unchanged from Admission Past Medical History: Unchanged from Admission Objective Active Medications: Acetaminophen (Tylenol Supp*) [address] Q6H PRN FEVER Albuterol/Ipratropium (Duoneb (Albuterol 2.5 Mg/Ipratropium 0.5 Mg)) 1 neb INH Q4H PRN SOB/WHEEZING Amoxicillin/Clavulanate Potassium (Augmentin Tab*) 875 mg PO BID [facility] Apixaban (Eliquis*) 5 mg PO BID [facility] Dextrose (D50w Syringe 50 Ml*) 12.5 gm IV PUSH .FOR FS < 60 - SS PRN FS < 60 Haloperidol Lactate (Haldol Inj Iv/Im*) 4 mg IV SLOW PU Q6H PRN AGITATION Sodium Chloride (Ns 0.9% 1000 Ml) 1,000 mls @ 100 mls/hr IV PER RATE [facility] Insulin Glargine (Lantus(*)) 15 units SUBCUT Q24H [facility] Insulin Human Lispro (Humalog*) 0 units SUBCUT AC [facility]; Protocol Vital Signs - 8 hr 05/07/18 05/07/18 05/07/18 11:40 15:40 15:47 Temperature 98.7 F 98.3 F Pulse Rate 89 87 Respiratory 26 34 Rate Blood Pressure 107/51 109/61 (mmHg) O2 Sat by Pulse 95 95 Oximetry Oxygen Devices in Use Now: None Appearance: Elderly male laying in bed in NAD Eyes: No Scleral Icterus Ears/Nose/Mouth/Throat: Mucous Membranes Moist Neck: NL Appearance and Movements; NL JVP, Trachea Midline Respiratory: Symmetrical Chest Expansion and Respiratory Effort, Clear to Auscultation Cardiovascular: NL Sounds; No Murmurs; No JVD, RRR Abdominal: NL Sounds; No Tenderness; No Distention Extremities: No Edema Neurological: - - Oriented to self Lines/Tubes/Other Access: Clean, Dry and Intact Peripheral IV Nutrition: Taking PO's Result Diagrams: 05/06/18 05:29 05/06/18 05:29 Assess/Plan/Problems-Billing Assessment: Mr. Frank is an 82 yr old male with pmh of dm2, prostate ca, dementia, hx of dvt, hypothyroid, cva, and auto immune hepatitis; who presented to ed with increase in AMS and hyperglycemia, now with concern for possible aspiration. - Patient Problems (1) Aspiration into respiratory tract Code(s): T17.908A - UNSP FB IN RESP TRACT, PART UNSP CAUSING OTH INJURY, INIT Comment: - Respiratory status back at baseline - Continue Augmentin (2) Diabetes Code(s): E11.9 - TYPE 2 DIABETES MELLITUS WITHOUT COMPLICATIONS Comment: - BG 600s on admission, improving with insulin - Recently started on glimepiride; continue to hold for now - Hemaglobin A1c 14.5% - Appreciate Endocrine consult - Continue Lantus (increased dose), Lispro SS (3) Altered mental status Code(s): R41.82 - ALTERED MENTAL STATUS, UNSPECIFIED Comment: - Resolved - Possibly secondary to hyperglycemia (4) Hypernatremia Code(s): E87.0 - HYPEROSMOLALITY AND HYPERNATREMIA Comment: - Resolved with IVF (5) Elevated LFTs Code(s): R94.5 - ABNORMAL RESULTS OF LIVER FUNCTION STUDIES Comment: - Secondary to autoimmune hepatitis; followed by Dr. Devine at [place] - Improved with IVF, so suspect this was worsened by hypovolemia (6) History of CVA (cerebrovascular accident) Code(s): Z86.73 - PRSNL HX OF TIA (TIA), AND CEREB INFRC W/O RESID DEFICITS Comment: - No obvious deficits - Continue atorvastatin, Eliquis (7) Dementia Code(s): F03.90 - UNSPECIFIED DEMENTIA WITHOUT BEHAVIORAL DISTURBANCE Comment : - Supportive care (8) DVT prophylaxis Comment: - Eliquis (9) Full code status Code(s): Z78.9 - OTHER SPECIFIED HEALTH STATUS Comment: Status and Disposition: Inpatient. Unclear if he will be able to return to [place] d/t PT needs. Attending: Addie Caba
--- NOTE | 2018-05-07 21:34 | CONSULT ---
Consult Consult: [facility] Inpatient Consult Note Date of Consult: 05/07/18 Reason for Consult: diabetes Reason for Admission: AMS, HHS ASSESSMENT: 82 yo M with dementia, autoimmune hepatitis and T2DM, now presenting with decompensated diabetes, severe hyperglycemic hyperosmolar state and altered mental status. His neurologic condition on admission is likely explained by the severe HHS (Posm >350 on admission) and hopefully will improve to baseline with time, although he remains frail and at risk for aspiration pneumonitis. Of greater concern is the underlying diabetes that lead to this admission: discontinuation of glimeperide 1mg alone in December 2017 seems to have resulted in profound hyperglycemia and a rise in A1c from <7.5% to >14.5% since then. Hyperglycemia failed to correct with re-introduction of glimeperide in March 2018. Overall, this clinical picture is consistent with acute loss of metabolic control ("glucotoxicity") that is likely to recur. I recommend initiation of basal insulin 0.2 units/kg/day for correction of acute hyperglycemia, along with resumption of glimeperide 1mg. Finally, I am concerned about the possibility of aspiration in this frail patient. CXR from 05/05/18 was negative and patient is on Augmentin, with bedside swallow eval reportedly negative today. Based on my observation of choking with supper, increased RR, abnormal breath sounds and overall clinical picture is consistent with aspiration pneumonitis. PLAN: - start Lantus 15 units once daily and continue at discharge - continue Humalog sliding scale - restart glimeperide 1mg at discharge - avoid metformin, Farxiga due to metabolic side effects SUBJECTIVE: History of Present Illness: 82 yo M with dementia, T2DM, non-infectious hepatitis with HCC, hypothyroidism, CVD and history VTE, presenting with altered mental status on 05/01/18. Patient has advanced dementia at baseline and is unable to recall these events. The clinic chart from PCP has noted worsening hyperglycemia with BG>400 on several occasions in the past month despite resumption of glimeperide. He has been increasingly incontinent and has had several falls. He was diagnosed with T2DM in ~2003. He has used only oral agents since then, mostly glimeperide. He has never required insulin, except during a hospital admission in October 2017 for stroke. Past Medical History: dementia T2DM, A1C 7.5% or less until January 2018 non-infectious hepatitis with HCC on CellCept hypothyroidism CVD VTE Medications Prior to Admission: Acetaminophen TAB* [Tylenol TAB*] 325 mg PO Q4H PRN 02/28/17 [History Confirmed 05/01/18] Cholecalciferol (Vitamin D3) [Vitamin D3] 2,000 unit PO DAILY 02/28/17 [History Confirmed 05/01/18] Citalopram TAB* [Celexa TAB*] 10 mg PO DAILY 02/28/17 [History Confirmed ] Donepezil TAB* [Aricept 5 MG TAB*] 5 mg PO BEDTIME 02/28/17 [History Confirmed 05/01/18] Levothyroxine TAB* [Synthroid 100 MCG TAB*] 100 mcg PO DAILY 02/28/17 [History Confirmed 05/01/18] Apixaban* [Eliquis*] 5 mg PO BID #60 tab 10/24/17 [Rx Confirmed 05/01/18] Mycophenolate Mofetil TAB(*) [Cellcept TAB(*)] 1,000 mg PO BID #0 10/24/17 [Rx Confirmed 05/01/18] Melatonin 10 mg PO BEDTIME 12/30/17 [History Confirmed 05/01/18] Calcium Carbonate/Vitamin D3 [Oyster Shell Calcium-Vit D Tab] 2 tab PO DAILY [History Confirmed 05/01/18] Dapagliflozin Propanediol [Farxiga] 5 mg PO DAILY 05/01/18 [History Confirmed ] Glimepiride (NF) 1 mg PO DAILY 05/01/18 [History Confirmed 05/01/18] Polyethylene Glycol 3350* [Miralax*] 17 gm PO DAILY 05/01/18 [History Confirmed 05/01/18] Rosuvastatin Calcium 5 mg PO BEDTIME 05/01/18 [History Confirmed 05/01/18] Inpatient Medications: Acetaminophen (Tylenol Supp*) 650 mg MA Q6H PRN PRN Reason: FEVER Last Admin: 05/05/18 16:26 Dose: 650 mg Albuterol/Ipratropium (Duoneb (Albuterol 2.5 Mg/Ipratropium 0.5 Mg)) 1 neb INH Q4H PRN PRN Reason: SOB/WHEEZING Amoxicillin/Clavulanate Potassium (Augmentin Tab*) 875 mg PO BID MOISES Stop: 05/11/18 20:59 Last Admin: 05/07/18 08:43 Dose: 875 mg Apixaban (Eliquis*) 5 mg PO BID [facility] Last Admin: 05/07/18 08:43 Dose: 5 mg Dextrose (D50w Syringe 50 Ml*) 12.5 gm IV PUSH .FOR FS < 60 - SS PRN PRN Reason: FS < 60 Haloperidol Lactate (Haldol Inj Iv/Im*) 4 mg IV SLOW PU Q6H PRN PRN Reason: AGITATION Last Admin: 05/07/18 04:49 Dose: 4 mg Insulin Glargine (Lantus(*)) 15 units SUBCUT Q24H MOISES Insulin Human Lispro (Humalog*) 0 units SUBCUT AC [facility]; Protocol Last Admin: 05/07/18 18:02 Dose: 9 units Allergies/Intolerances: NKDA 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 Resident of [facility]. Family History: Non-contributory. Review of Systems: Recent choking episodes when trying to eat. Aspiration workup ongoing. OBJECTIVE: Temp Pulse Resp BP Pulse Ox 97.7 F 101 34 109/54 93 05/07/18 19:00 05/07/18 19:00 05/07/18 20:35 05/07/18 20:27 05/07/18 19:00 General: alert, mild respiratory distress ENT: neck supple, no thyromegaly, no bruit is heard Chest: tachypneic, dyspneic, choking with food CV: RRR, no murmur Abdomen: soft, non-tender Extremities: no edema, distal pulses intact Skin: warm, dry, no rash Neuro: grossly intact motor/sensory in extremities Psych: restricted affect Labs: WBC 12.4 10^3/ul (3.5-10.8) H 05/06/18 05:29 RBC 3.91 10^6/ul (4.00-5.40) L 05/06/18 05:29 Hgb 11.7 g/dl (14.0-18.0) L 05/06/18 05:29 Hct 37 % (42-52) L 05/06/18 05:29 MCV 94 fL (80-94) 05/06/18 05:29 MCH 30 pg (27-31) 05/06/18 05:29 MCHC 32 g/dl (31-36) 05/06/18 05:29 RDW 15 % (10.5-15) 05/06/18 05:29 Plt Count 88 10^3/ul (150-450) L 05/06/18 05:29 MPV 9.9 fL (7.4-10.4) 05/06/18 05:29 Neut % (Auto) 81.4 % 05/06/18 05:29 Lymph % (Auto) 13.3 % 05/06/18 05:29 [place]ary % (Auto) 4.6 % 05/06/18 05:29 Eos % (Auto) 0.2 % 05/06/18 05:29 Baso % (Auto) 0.5 % 05/06/18 05:29 Absolute Neuts (auto) 10.1 10^3/ul (1.5-7.7) H 05/06/18 05:29 Absolute Lymphs (auto) 1.7 10^3/ul (1.0-4.8) 05/06/18 05:29 Absolute Monos (auto) 0.6 10^3/ul (0-0.8) 05/06/18 05:29 Absolute Eos (auto) 0 10^3/ul (0-0.6) 05/06/18 05:29 Absolute Basos (auto) 0.1 10^3/ul (0-0.2) 05/06/18 05:29 Absolute Nucleated RBC 0 10^3/ul 05/06/18 05:29 Nucleated RBC % 0 05/06/18 05:29 Large Platelets Present 05/03/18 06:11 Hem Pathologist Commnt 05/06/18 05:29 Patient Temperature Not Reportable 05/05/18 16:15 ABG pH 7.46 (7.35-7.45) H 05/05/18 16:15 ABG pH (Temp Correct) Not Reportable 05/05/18 16:15 ABG pCO2 32 mmHg (35-45) L 05/05/18 16:15 ABG pCO2 (Temp Corrct Not Reportable 05/05/18 16:15 ABG pO2 82 mmHg (80-100) 05/05/18 16:15 ABG pO2 (Temp Correct Not Reportable 05/05/18 16:15 ABG HCO3 24.7 mmol/L (19-31) 05/05/18 16:15 ABG O2 Saturation 98.1 % (94.0-98.0) H 05/05/18 16:15 ABG Base Excess -0.3 mmol/L (-2.0-2.0) 05/05/18 16:15 Respiration Rate Not Reportable 05/05/18 16:15 O2 Delivery Device vapo 05/05/18 16:15 Ventilator Type Not Reportable 05/05/18 16:15 Vent Mode Not Reportable 05/05/18 16:15 FiO2 50 05/05/18 16:15 Inspiratory Time Not Reportable 05/05/18 16:15 PEEP Not Reportable 05/05/18 16:15 Pressure Support Not Reportable 05/05/18 16:15 Pressure Control Not Reportable 05/05/18 16:15 EPAP Not Reportable 05/05/18 16:15 IPAP Not Reportable 05/05/18 16:15 BiPAP Not Reportable 05/05/18 16:15 Sodium 138 mmol/L (135-145) 05/06/18 05:29 Potassium 3.9 mmol/L (3.5-5.0) 05/06/18 05:29 Chloride 110 mmol/L (101-111) 05/06/18 05:29 Carbon Dioxide 21 mmol/L (22-32) L 05/06/18 05:29 Anion Gap 7 mmol/L (2-11) 05/06/18 05:29 BUN 18 mg/dL (6-24) 05/06/18 05:29 Creatinine 0.88 mg/dL (0.67-1.17) 05/06/18 05:29 Est GFR ( Amer) 99.8 (>60) 05/06/18 05:29 Est GFR (Non-Af Amer) 82.5 (>60) 05/06/18 05:29 BUN/Creatinine Ratio 20.5 (8-20) H 05/06/18 05:29 Glucose 155 mg/dL (70-100) H 05/06/18 05:29 POC Glucose (mg/dL) 231 mg/dL (70-100) H 05/07/18 20:22 Glucose Meter Confirm 429 mg/dL (70-100) H 05/03/18 21:10 Hemoglobin A1c 14.3 % (4.0-5.6) H 05/03/18 21:10 Lactic Acid 2.5 mmol/L (0.5-2.0) H* 05/05/18 16:20 Calcium 7.8 mg/dL (8.6-10.3) L 05/06/18 05:29 Total Bilirubin 1.00 mg/dL (0.2-1.0) 05/05/18 16:20 AST 38 U/L (13-39) 05/05/18 16:20 ALT 60 U/L (7-52) H 05/05/18 16:20 Alkaline Phosphatase 90 U/L (34-104) 05/05/18 16:20 C-Reactive Protein 40.18 mg/L (<8.01) H 05/01/18 10:18 Total Protein 7.2 g/dL (6.4-8.9) 05/05/18 16:20 Albumin 3.2 g/dL (3.2-5.2) 05/05/18 16:20 Globulin 4.0 g/dL (2-4) 05/05/18 16:20 Albumin/Globulin Ratio 0.8 (1-3) L 05/05/18 16:20 Triglycerides 83 mg/dL 05/02/18 06:07 Cholesterol 130 mg/dL 05/02/18 06:07 LDL Cholesterol 78 mg/dL 05/02/18 06:07 HDL Cholesterol 35.0 mg/dL 05/02/18 06:07 TSH 1.40 mcIU/mL (0.34-5.60) 05/01/18 16:55 Urine Color Yellow 05/01/18 14:27 Urine Appearance Clear 05/01/18 14:27 Urine pH 5.0 (5-9) 05/01/18 14:27 Ur Specific [place] 1.017 (1.010-1.030) 05/01/18 14:27 Urine Protein Negative (Negative) 05/01/18 14:27 Urine Ketones Trace (Negative) A 05/01/18 14:27 Urine Blood 1+ (Negative) A 05/01/18 14:27 Urine Nitrate Negative (Negative) 05/01/18 14:27 Urine Bilirubin Negative (Negative) 05/01/18 14:27 Urine Urobilinogen Negative (Negative) 05/01/18 14:27 Ur Leukocyte Esterase Negative (Negative) 05/01/18 14:27 Urine WBC (Auto) Trace(0-5/hpf) (Absent) 05/01/18 14:27 Urine RBC (Auto) Trace(0-2/hpf) (Absent) 05/01/18 14:27 Urine Bacteria Absent (Absent) 05/01/18 14:27 Urine Glucose 3+(>=500 mg/dl) (Negative) A 05/01/18 14:27 Influenza A (Rapid) Negative (Negative) 05/05/18 16:40 Influenza B (Rapid) Negative (Negative) 05/05/18 16:40
[2018-05-07] MEDS: Insulin GLARGINE(*) 1 UNITS UNIT SUBCUT SCH (21:47)
[2018-05-08 06:54] LABS: ABS Basophils 0 10^3/ul (0-0.2); ABS Eosinophils 0.1 10^3/ul (0-0.6); ABS Monocytes 0.4 10^3/ul (0-0.8); ABS Neutrophils 3.9 10^3/ul (1.5-7.7); ABS Nucleated RBC 0 10^3/ul; Eosinophil % 1.9 %; Hematocrit 33 % (42-52); Hemoglobin 10.7 g/dl (14.0-18.0); Mean Corpuscular HGB Conc 33 g/dl (31-36); Mean Corpuscular Hemoglobin 30 pg (27-31); Mean Corpuscular Volume 93 fL (80-94); Nucleated Red Blood Cells % 0; Platelet Count 130 10^3/ul (150-450); Red Blood Count 3.57 10^6/ul (4.00-5.40); Red Cell Distribution Width 15 % (10.5-15); White Blood Count 5.5 10^3/ul (3.5-10.8)
[2018-05-08 07:15] LABS: BUN/Creatinine Ratio 15.5 (8-20); Calcium 8.1 mg/dL (8.6-10.3); EGFR African American 127.9 (>60); EGFR Non-African American 105.7 (>60); Potassium 3.7 mmol/L (3.5-5.0)
[2018-05-08] MEDS: Insulin LISPRO* 1 UNITS UNIT SUBCUT SCH ×3 (07:54→16:36)
--- NOTE | 2018-05-08 14:14 | PN ---
Subjective Date of Service: 05/08/18 Interval History: Mr. Frank is feeling ok today. He is confused and not able to provide much subjective data. He feels confused and is trying to remove the mitts on his hands. He denies any other complaints. Aide at bedside reports that he has been pulling at his IV and trying to get out of bed. She reports one episode of hallucinations where he thought there were knives on the floor. Family History: Unchanged from Admission Social History: Unchanged from Admission Past Medical History: Unchanged from Admission Objective Active Medications: Acetaminophen (Tylenol Supp*) 650 mg WA Q6H PRN FEVER Albuterol/Ipratropium (Duoneb (Albuterol 2.5 Mg/Ipratropium 0.5 Mg)) 1 neb INH Q4H PRN SOB/WHEEZING Amoxicillin/Clavulanate Potassium (Augmentin Tab*) 875 mg PO BID MOISES Apixaban (Eliquis*) 5 mg PO BID MOISES Dextrose (D50w Syringe 50 Ml*) 12.5 gm IV PUSH .FOR FS < 60 - SS PRN FS < 60 Haloperidol Lactate (Haldol Inj Iv/Im*) 4 mg IV SLOW PU Q6H PRN AGITATION Insulin Glargine (Lantus(*)) 15 units SUBCUT Q24H MOISES Insulin Human Lispro (Humalog*) 0 units SUBCUT AC MOISES; Protocol Levothyroxine Sodium (Synthroid Tab*) 100 mcg PO DAILY@0600 MOISES Mycophenolate Mofetil (Cellcept Tab(*)) 1,000 mg PO BID [facility] Vital Signs - 8 hr 05/08/18 05/08/18 05/08/18 07:19 07:20 07:58 Temperature 97.6 F Pulse Rate 114 81 Respiratory 18 24 Rate Blood Pressure 136/120 104/50 (mmHg) O2 Sat by Pulse 96 Oximetry 05/08/18 11:11 Temperature 98.2 F Pulse Rate 88 Respiratory 20 Rate Blood Pressure 126/64 (mmHg) O2 Sat by Pulse Oximetry Oxygen Devices in Use Now: Nasal Cannula - 2L Appearance: Elderly male sitting in bed in NAD Eyes: No Scleral Icterus Ears/Nose/Mouth/Throat: Mucous Membranes Moist Neck: NL Appearance and Movements; NL JVP, Trachea Midline Respiratory: Symmetrical Chest Expansion and Respiratory Effort, Clear to Auscultation Cardiovascular: NL Sounds; No Murmurs; No JVD, RRR Abdominal: NL Sounds; No Tenderness; No Distention Extremities: No Edema Neurological: - - Oriented to self Lines/Tubes/Other Access: Clean, Dry and Intact Peripheral IV Result Diagrams: 05/08/18 06:37 05/08/18 06:37 Assess/Plan/Problems-Billing Assessment: Mr. Frank is an 82 yr old male with pmh of dm2, prostate ca, dementia, hx of dvt, hypothyroid, cva, and auto immune hepatitis; who presented to ED with increase in AMS and hyperglycemia, now with concern for possible aspiration. - Patient Problems (1) Aspiration into respiratory tract Code(s): T17.908A - UNSP FB IN RESP TRACT, PART UNSP CAUSING OTH INJURY, INIT Comment: - Aspirated again last night after dinner, but lungs remain clear - NPO for now pending speech therapy eval - Continue Augmentin (2) Diabetes Code(s): E11.9 - TYPE 2 DIABETES MELLITUS WITHOUT COMPLICATIONS Comment: - BG 600s on admission, improving with insulin - Hemaglobin A1c 14.5% - Appreciate Endocrine consult; recommends Lantus and Lispro for now, and restart glimeperide at d/c - Continue Lantus, Lispro SS (3) Altered mental status Code(s): R41.82 - ALTERED MENTAL STATUS, UNSPECIFIED Comment: - Resolved - Possibly secondary to hyperglycemia (4) Hypernatremia Code(s): E87.0 - HYPEROSMOLALITY AND HYPERNATREMIA Comment: - Secondary to hypovolemia - Resolved with IVF (5) Elevated LFTs Code(s): R94.5 - ABNORMAL RESULTS OF LIVER FUNCTION STUDIES Comment: - Secondary to autoimmune hepatitis; followed by Dr. Nilson cy[facility] [place] - Improved with IVF, so suspect this was worsened by hypovolemia (6) History of CVA (cerebrovascular accident) Code(s): Z86.73 - PRSNL HX OF TIA (TIA), AND CEREB INFRC W/O RESID DEFICITS Comment: - No obvious deficits - Continue atorvastatin, Eliquis (7) Dementia Code(s): F03.90 - UNSPECIFIED DEMENTIA WITHOUT BEHAVIORAL DISTURBANCE Comment : - Supportive care (8) DVT prophylaxis Comment: - Eliquis (9) Full code status Code(s): Z78.9 - OTHER SPECIFIED HEALTH STATUS Comment: Status and Disposition: Inpatient. Unclear if he will be able to return to [place] d/t new PT needs. Case management working on placement. Attending: Addie Caba
[2018-05-08] MEDS: Amoxicillin/Clavulanate TAB* 875 MG PO SCH ×2 (16:35→21:43)
[2018-05-08] MEDS: Apixaban* 5 MG TAB PO SCH ×2 (16:35→21:43)
[2018-05-08] MEDS: Mycophenolate Mofetil TAB(*) 500 MG PO SCH (21:43)
[2018-05-08] MEDS: Insulin GLARGINE(*) 1 UNITS UNIT SUBCUT SCH (21:43)
[2018-05-09] MEDS: Haloperidol INJ IV/IM* 5 MG/ML AMP IV SLOW PU PRN (01:52)
[2018-05-09] MEDS: Levothyroxine TAB* 100 MCG TAB PO SCH (06:03)
[2018-05-09] MEDS: Insulin LISPRO* 1 UNITS UNIT SUBCUT SCH ×3 (07:26→17:14)
[2018-05-09] MEDS: Apixaban* 5 MG TAB PO SCH ×2 (10:03→22:24)
[2018-05-09] MEDS: Amoxicillin/Clavulanate TAB* 875 MG PO SCH ×2 (10:04→22:23)
[2018-05-09] MEDS: Mycophenolate Mofetil TAB(*) 500 MG PO SCH ×2 (10:04→22:23)
--- NOTE | 2018-05-09 11:57 | PN ---
Subjective Date of Service: 05/09/18 Interval History: Mr. Frank is feeling ok today. He offers no complaints. His feels as though he is drowsy, but he disagrees. He denies SOB or CP. is concerned about diabetic medications going forward, but after conversation, she is understanding and agreeable to the plans recommended by Dr. Godfrey. She is still frustrated that he is not able to return to [place] but accepting of SNF placement. Family History: Unchanged from Admission Social History: Unchanged from Admission Past Medical History: Unchanged from Admission Objective Active Medications: Acetaminophen (Tylenol Supp*) 650 mg SD Q6H PRN FEVER Albuterol/Ipratropium (Duoneb (Albuterol 2.5 Mg/Ipratropium 0.5 Mg)) 1 neb INH Q4H PRN SOB/WHEEZING Amoxicillin/Clavulanate Potassium (Augmentin Tab*) 875 mg PO BID MOISES Apixaban (Eliquis*) 5 mg PO BID MOISES Dextrose (D50w Syringe 50 Ml*) 12.5 gm IV PUSH .FOR FS < 60 - SS PRN FS < 60 Haloperidol Lactate (Haldol Inj Iv/Im*) 4 mg IV SLOW PU Q6H PRN AGITATION Insulin Glargine (Lantus(*)) 15 units SUBCUT Q24H MOISES Insulin Human Lispro (Humalog*) 0 units SUBCUT AC MOISES; Protocol Levothyroxine Sodium (Synthroid Tab*) 100 mcg PO DAILY@0600 MOISES Mycophenolate Mofetil (Cellcept Tab(*)) 1,000 mg PO BID MOISES Vital Signs - 8 hr 05/09/18 05/09/18 05/09/18 07:35 07:51 07:52 Temperature 97.4 F Pulse Rate 124 80 Respiratory 26 20 Rate Blood Pressure 92/43 (mmHg) O2 Sat by Pulse 97 96 96 Oximetry Appearance: Elderly male laying in bed in NAD Eyes: No Scleral Icterus Ears/Nose/Mouth/Throat: Mucous Membranes Moist Neck: NL Appearance and Movements; NL JVP, Trachea Midline Respiratory: Symmetrical Chest Expansion and Respiratory Effort, Clear to Auscultation Cardiovascular: NL Sounds; No Murmurs; No JVD, RRR Abdominal: NL Sounds; No Tenderness; No Distention Extremities: No Edema Neurological: - - Oriented to self; Drowsy Lines/Tubes/Other Access: Clean, Dry and Intact Peripheral IV Nutrition: Taking PO's Result Diagrams: 05/08/18 06:37 05/08/18 06:37 Assess/Plan/Problems-Billing Assessment: Mr. Frank is an 82 yr old male with pmh of dm2, prostate ca, dementia, hx of dvt, hypothyroid, cva, and auto immune hepatitis; who presented to ED with increase in AMS and hyperglycemia, now with concern for possible aspiration. - Patient Problems (1) Aspiration into respiratory tract Code(s): T17.908A - UNSP FB IN RESP TRACT, PART UNSP CAUSING OTH INJURY, INIT Comment: - Aspirated again last night after dinner, but lungs remain clear - NPO for now pending speech therapy eval - Continue Augmentin (day 3) (2) Diabetes Code(s): E11.9 - TYPE 2 DIABETES MELLITUS WITHOUT COMPLICATIONS Comment: - BG 600s on admission, improving with insulin - Hemaglobin A1c 14.5% - Appreciate Endocrine consult; recommends Lantus and Lispro for now, and restart glimeperide at d/c - Continue Lantus, Lispro SS (3) Altered mental status Code(s): R41.82 - ALTERED MENTAL STATUS, UNSPECIFIED Comment: - Essentially resolved, but there is likely some component of hospital-induced delirium - Possibly secondary to hyperglycemia (4) Hypernatremia Code(s): E87.0 - HYPEROSMOLALITY AND HYPERNATREMIA Comment: - Secondary to hypovolemia - Resolved with IVF (5) Elevated LFTs Code(s): R94.5 - ABNORMAL RESULTS OF LIVER FUNCTION STUDIES Comment: - Secondary to autoimmune hepatitis; followed by Dr. Dveine at [facility] - Improved with IVF, so suspect this was worsened by hypovolemia - Continue Cellcept (6) History of CVA (cerebrovascular accident) Code(s): Z86.73 - PRSNL HX OF TIA (TIA), AND CEREB INFRC W/O RESID DEFICITS Comment: - No obvious deficits - Continue atorvastatin, Eliquis (7) Dementia Code(s): F03.90 - UNSPECIFIED DEMENTIA WITHOUT BEHAVIORAL DISTURBANCE Comment : - Resume Aricept, Celexa (8) DVT prophylaxis Comment: - Eliquis (9) Full code status Code(s): Z78.9 - OTHER SPECIFIED HEALTH STATUS Comment: Status and Disposition: Inpatient. Not able to return to [place] and will need SNF placement. Case management working on placement. Attending: Julio Cesar Claire
[2018-05-09] MEDS ORDERED: Magnesium Hydroxide LIQ* 30 ML UDC PO PRN (15:05)
[2018-05-09] MEDS ORDERED: Atorvastatin* 10 MG TAB PO SCH (17:00)
[2018-05-09] MEDS ORDERED: Donepezil TAB* 5 MG PO SCH (21:00)
[2018-05-09] MEDS: Insulin GLARGINE(*) 1 UNITS UNIT SUBCUT SCH (22:24)
[2018-05-10] MEDS: Levothyroxine TAB* 100 MCG TAB PO SCH (07:17)
[2018-05-10] MEDS ORDERED: Polyethylene Glycol 3350* 17 GM PACKET PO SCH (09:00)
[2018-05-10] MEDS ORDERED: Docusate CAP* 100 MG PO SCH (09:00)
[2018-05-10] MEDS ORDERED: Citalopram TAB* 10 MG PO SCH (09:00)
[2018-05-10] MEDS: Insulin LISPRO* 1 UNITS UNIT SUBCUT SCH ×4 (09:15→14:00)
[2018-05-10] MEDS: Apixaban* 5 MG TAB PO SCH (09:24)
[2018-05-10] MEDS: Amoxicillin/Clavulanate TAB* 875 MG PO SCH (09:25)
[2018-05-10] MEDS: Mycophenolate Mofetil TAB(*) 500 MG PO SCH (09:42)
--- NOTE | 2018-05-10 11:15 | DS ---
CC: Dr. Kevin Boggs; Dr. Acosta [place] * DISCHARGE SUMMARY: DATE OF ADMISSION: 05/01/18 DATE OF DISCHARGE: 05/10/18 PRIMARY CARE PROVIDER: Dr. Kevin Boggs. ATTENDING PHYSICIAN: Dr. Mckeon * (dictated by Chloe Huff NP) PRIMARY DIAGNOSES: 1. Toxic metabolic encephalopathy secondary to hyperglycemia and hospital- induced delirium. 2. Hypernatremia secondary to hypovolemia. 3. Elevated liver function tests secondary to autoimmune hepatitis. 4. Hyperglycemia. 4. Diabetes mellitus type 2, uncontrolled with hyperglycemia. 5. Aspiration without aspiration pneumonia. 6. Acute kidney injury. 7. Elevated lactic acid. SECONDARY DIAGNOSES: 1. Dementia. 2. History of cerebrovascular accident. STUDIES WHILE IN THE HOSPITAL: 1. EKG on 05/01/18 shows sinus tachycardia with a rate of 110, QTc 470, Q waves present in inferior leads, no acute changes. 2. Brain CT on 05/01/18 reads as no acute intracranial pathology. Diffuse involutional change with chronic small vessel ischemic changes. 3. Chest x-ray on 05/01/18 reads as low lung volumes. No active cardiopulmonary disease. 4. Chest x-ray on 05/05/18 reads as low lung volumes. No active cardiopulmonary disease. HISTORY OF PRESENT ILLNESS AND HOSPITAL COURSE: Mr. Frank is an 82-year- old male with past medial history of type 2 diabetes, prostate cancer, advanced dementia, DVT, hypothyroidism, autoimmune hepatitis, who presented to the emergency room on 05/01/18 with complaints of altered mental status and hyperglycemia. Please see the history and physical by Cherise Trinh NP for complete summary of the events leading up to this hospitalization. In short, the patient has been residing at [facility]. Nursing staff there reported that over the past month, the patient had had progressively increased confusion and abnormal behavior. Blood sugars had been elevated for the past 2 to 3 weeks. He had been restarted on glimepiride by his PCP, although his blood sugars were adequately controlled on it. In the emergency room, he had lab work which was remarkable for a sodium of 151, creatinine of 1.51, a glucose of 613, a lactic acid of 2.3, and mildly elevated total bili, AST, ALT, and alk phos. Because of the concern for altered mental status and hyperglycemia, he was admitted by the hospitalist service. The patient's hyperglycemia resolved relatively quickly with insulin, however, his hypernatremia was more difficult to correct and required multiple liters of IV fluids due to hypovolemia. The patient did have hemoglobin A1c of 14.5%. It is likely that the patient's altered mental status for the week preceding admission were secondary to toxic metabolic encephalopathy from hyperglycemia, however, it is unclear why his blood sugar got so out of control. The previous A1c on file at this facility is from January 2018 and was 10.8, so there has been a significant change since that time. The patient was noted to have acute kidney injury secondary to hypovolemia. Although, the patient did have an elevated lactic acid, this was not indicative of any infection as there was no source or other signs of infection and this was secondary to hyperglycemia only. The patient continued to recover well, though on 05/05/18, he was noted to have a suspected aspiration. He became tachypneic and tachycardic and was ultimately transferred to the intensive care unit for initiation of Vapotherm. The patient was able to be transferred back out of the intensive care unit on as he did recover quite quickly and subsequently only needed 2 L of oxygen to maintain saturations in the 90. His tachypnea and tachycardia also resolved. The patient was started on Zosyn after this episode of aspiration. He did have a chest x-ray as noted above and there was no clear pneumonia. He was changed over to Augmentin for prophylaxis due to this known aspiration. He was seen by Speech Therapy who after a swallow study recommended regular consistency, solids with nectar-thick liquids and no straws. It was recommended that the patient sit upright and take small sips and bites. On , the patient was witnessed to have another episode of suspected aspiration by nursing. At that point, his respiratory status remained stable. He was made n.p.o. and then reevaluated by Speech Therapy on 05/08/18, who did not recommend any changes from their previous encounter with him. The patient was kept on Augmentin. The patient's LFTs were elevated on admission, though the patient does have known autoimmune hepatitis and has followed by a doctor in [place]. As of 05/05/18, his liver enzymes have essentially normalized, so it is likely that these were worsened due to his hypovolemia. The patient was seen in consultation by Dr. Godfrey from Endocrinology due to his uncontrolled diabetes. Dr. Godfrey noted that reportedly the patient had been on glimepiride in the past, which was discontinued in December of 2017 and at that point, the patient's A1c saroj from less than 7.5 to greater than 14.5. When his glimepiride was restarted, his hyperglycemia failed to correct and Dr. 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 He ultimately recommended 50 units Lantus daily and restarting glimepiride at discharge. He recommended avoiding metformin and Farxiga due to their metabolic side effects. The patient has been maintained on sliding scale Lispro while here in the hospital as well. At this point, the patient's blood sugars have been under better control within the last couple of days raging from 114 to 258. At this point, I think that some of his confusion may be attributable to hospital- induced delirium. The patient's reports that he is closer to his baseline than he was on admission, though, is still not back to his baseline from approximately 1 month ago. The patient was seen by Physical Therapy and Occupational Therapy who noted that he had acute therapy needs. The patient's was very hesitant to take him out of his home at [place], though as of this point, [facility] will not take the patient back due to his decreased mobility, decreased mental status, and now need for insulin. The was agreeable to placement in a nursing facility for this reason. As of today, the patient reports feeling okay. He offers no complaints. He is not able to provide much subjective information, but does not appear to be in any acute distress. His lung sounds are clear. He is on room air. His vital signs have been stable. Mr. Frank is stable for discharge today. Vital signs are as follows: Temp 98.2, heart rate 82, respiratory rate 20, oxygen saturation 94% on room air, blood pressure 111/61. DISCHARGE MEDICATIONS: New medications: 1. Augmentin 875 mg p.o. b.i.d. x3 days. 2. Lantus 15 units subcu daily. Continued medications: 1. Acetaminophen 325 mg p.o. q.4 hours p.r.n. pain. 2. Eliquis 5 mg p.o. b.i.d. 3. Calcium carbonate/vitamin D3 2 tabs p.o. daily. 4. Vitamin D3 2000 units p.o. daily. 5. Citalopram 10 mg p.o. daily. 6. Aricept 5 mg p.o. at bedtime. 7. Glimepiride 1 mg p.o. daily. 8. Levothyroxine 100 mcg p.o. daily. 9. Melatonin 10 mg p.o. at bedtime. 10. CellCept 1000 mg p.o. b.i.d. 11. MiraLAX 17 g p.o. daily. 12. Rosuvastatin 5 mg p.o. at bedtime. Discontinued medications: Farxiga. DISCHARGE PLAN: Mr. Frank will be discharged to [facility]. ACTIVITY: As tolerated. DIET: Consistent carb with nectar-thick liquids. I will recommend fingersticks at least a.c. Medications are noted above. The patient has been started on 15 units of Lantus , which he should continue. This dose may need to be titrated up based on his blood glucose within the next few weeks after he restarts his glimepiride. Again, he should discontinue his Farxiga, but can continue the other medications he was on prior to admission to the hospital. I would also recommend followup chest x-ray in 2 to 3 weeks due to his suspected episodes of aspiration. He should continue Augmentin for another 3 days to complete a total of 7 days of antibiotic therapy, though he was not actually noted to have pneumonia during this hospitalization. The patient should return to the emergency room or nearest hospital for any worsening of symptoms, shortness of breath, lightheadedness, dizziness, chest discomfort, high fevers, chills, night sweats, loss of consciousness, or any other worrisome signs or symptoms. This is a summarized report of a complex medical history and hospital stay. For further details, please see the entire medical record. TIME SPENT: Approximately 45 minutes was spent on this discharge. CHLOE HUFF, [employer] RENTAL MANAGER [id number]/[facility] #: [id number] [facility]ITALKristan
[2018-05-10 13:22] VITALS: BP 134/78
== END 2018-05-10 14:40 | DRG 637 ==
LOC: ED 09:59 → MEDTELE 13:26 → MED 05-03 10:29 → ICU 05-05 15:50 → MED 05-06 16:12
PROVIDERS: ADMIT Internal Medicine; ATTEND Student in an Organized Health Care Education/Training Program
DX: E11.00 Type 2 diabetes mellitus with hyperosmolarity without nonketotic hyperglycemic-hyperosmolar coma (NKHHC) (principal); G92 Toxic encephalopathy; E87.0 Hyperosmolality and hypernatremia; N17.9 Acute kidney failure, unspecified; C22.0 Liver cell carcinoma; I47.1 Supraventricular tachycardia; E11.65 Type 2 diabetes mellitus with hyperglycemia; R41.0 Disorientation, unspecified; E86.1 Hypovolemia; E86.0 Dehydration; K75.4 Autoimmune hepatitis; R94.5 Abnormal results of liver function studies; F03.90 Unspecified dementia, unspecified severity, without behavioral disturbance, psychotic disturbance, mood disturbance, and anxiety; R74.0 Nonspecific elevation of levels of transaminase and lactic acid dehydrogenase [LDH]; E03.9 Hypothyroidism, unspecified; T17.990A Other foreign object in respiratory tract, part unspecified in causing asphyxiation, initial encounter; X58.XXXA Exposure to other specified factors, initial encounter; Z86.73 Personal history of transient ischemic attack (TIA), and cerebral infarction without residual deficits; Z85.46 Personal history of malignant neoplasm of prostate; Z79.01 Long term (current) use of anticoagulants; Z79.84 Long term (current) use of oral hypoglycemic drugs; Z79.1 Long term (current) use of non-steroidal anti-inflammatories (NSAID); Z79.899 Other long term (current) drug therapy; Z82.49 Family history of ischemic heart disease and other diseases of the circulatory system; R06.82 Tachypnea, not elsewhere classified
CPT/HCPCS: 36415; 36600; 70450; 71045; 71046; 80048; 80053; 80061; 81003; 81015; 82803; 82947; 83036; 83605; 84443; 85025; 85060; 86140; 87086; 87641; 93005; 94640; 99284; A9270-GY; G8978-GP-CL; G8978-GP-CM; G8979-GP-CI; G8979-GP-CK; G8987-GO-CM; G8988-GO-CK; J1630; J2270; J2543; J3480